=== PATIENT | male | born 1930 | race Caucasian/White ===

== ENCOUNTER → 2016-07-31 | Outpatient (CLI) | payer OTHER ==
[~2016-07-31] MED LIST: /WARF25TA; ACET500C; AMIT10TA2; ASPI81TA63; ATEN50TA2; DIOV160T5; DIOV80TA; FIBER CAPS; FISH1000; FLON0.05; GLUC500T3; LUTEIN; MAG-TAB; MULTIVIT; PERC5TAB8; PERC7.5T8; PRIL20CA; TYLE500T53; fiber caps; lutein; mvi
== END ==
LOC: M LAB 05:49
PROVIDERS: ATTEND Orthopaedic Surgery
DX: M16.11 Unilateral primary osteoarthritis, right hip (principal); Z51.81 Encounter for therapeutic drug level monitoring; Z79.899 Other long term (current) drug therapy

== ENCOUNTER → 2016-08-16 | Outpatient (CLI) | payer OTHER ==
--- NOTE | 2016-08-16 20:06 | REP ---
Whole body PET CT scan: Comparison is the chest CT dated 07/14/2016. On the comparison chest CT. There is a bilobed nodule in the superior segment of the right lower lobe. Whole body PET scanning is performed from the skull base to the upper thighs. Neck and supraclavicular areas: There are no hypermetabolic foci. There is artifactual uptake in the vocal cords. Chest: There are no hypermetabolic foci. The patient's known right lung nodule demonstrates no FDG avidity . The standard uptake value is 1.2. Abdomen, pelvis and upper thighs: There is nonspecific bowel uptake. There is a left hip arthroplasty with uptake adjacent to the arthroplasty, the standard uptake value measuring up to 8.6. This is of uncertain significance and may merely be postoperative. Impression: The patient's known right lung nodule is not FDG avid. There is nonspecific bowel uptake. There is uptake at the left hip arthroplasty, nonspecific, possibly postsurgical. The study is performed with 7.8 mCi of F 18 FDG. Signed by Yaniv Gonzalez MD 08/16/2016 07:56 P
== END ==
LOC: M PLARAD 14:28
PROVIDERS: ATTEND Internal Medicine Pulmonary Disease
DX: R91.1 Solitary pulmonary nodule (principal); Z96.9 Presence of functional implant, unspecified; R93.5 Abnormal findings on diagnostic imaging of other abdominal regions, including retroperitoneum
CPT/HCPCS: 78815; A9552

== ENCOUNTER → 2016-11-16 | Outpatient (CLI) | payer OTHER ==
[2016-11-16 14:47] LABS: ALBUMIN 3.2 GM/DL (3.2-5.2); ALBUMIN/GLOBULIN RATIO 0.91 (1.00-1.93); ALKALINE PHOSPHATASE 126 U/L (45-117); ALT/SGPT 25 U/L (12-78); ANION GAP 7 MEQ/L (8-16); AST/SGOT 16 U/L (15-37); BILIRUBIN,TOTAL 0.5 MG/DL (0.2-1.0); BLOOD UREA NITROGEN 14 MG/DL (7-18); CALCIUM LEVEL 9.8 MG/DL (8.8-10.2); CARBON DIOXIDE LEVEL 30 MEQ/L (21-32); CHLORIDE LEVEL 105 MEQ/L (98-107); CHOLESTEROL LEVEL 171 MG/DL (<200); GLOMERULAR FILTRATION RATE > 60.0 (>35); GLUCOSE, FASTING 86 MG/DL (83-110); POTASSIUM SERUM 5.1 MEQ/L (3.5-5.1); SODIUM LEVEL 142 MEQ/L (136-145); TOTAL PROTEIN 6.7 GM/DL (6.4-8.2); TRIGLYCERIDES LEVEL 102 MG/DL (<150)
== END ==
LOC: M SMT 07:57
PROVIDERS: ATTEND Family Medicine
DX: E78.00 Pure hypercholesterolemia, unspecified (principal)

== ENCOUNTER → 2016-12-26 | Outpatient (CLI) | payer OTHER ==
[~2016-12-26] MED LIST changes: +AMIT10TA PO; +ASPI81TA85 PO; +ATEN50TA2 PO; +OMEP40CA2 PO; +PARO20TA3 PO; +TRAM50TA2 PO; +VALS160T PO
[2016-12-26 11:10] LABS: BASO % 0.5 % (0.0-1.0); EOS # 0.3 K/mm3 (0.0-0.50); EOS % 4.4 % (0.0-3.0); LARGE UNSTAINED CELL # 0.2 K/mm3 (0.0-0.4); LARGE UNSTAINED CELL % 2.6 % (0.0-4.0); LYMPH # 1.4 K/mm3 (1.5-4.5); LYMPH % 22.3 % (24.0-44.0); MEAN CORPUSCULAR HEMOGLOBIN 31.5 pg (27.0-33.0); MEAN CORPUSCULAR HGB CONC 33.9 g/dl (32.0-36.5); MONO # 0.6 K/mm3 (0.0-0.8); MONO % 8.5 % (0.0-5.0); NEUTROPHILS % 61.7 % (36.0-66.0); PLATELET COUNT, AUTOMATED 220 k/mm3 (150-450); RED CELL DISTRIBUTION WIDTH 15.7 % (11.5-14.5); WHITE BLOOD COUNT 6.4 K/mm3 (4.0-10.0)
[2016-12-26 11:18] LABS: ALBUMIN/GLOBULIN RATIO 0.91 (1.00-1.93); ALKALINE PHOSPHATASE 122 U/L (45-117); ALT/SGPT 29 U/L (12-78); ANION GAP 7 MEQ/L (8-16); AST/SGOT 19 U/L (15-37); BILIRUBIN,TOTAL 0.4 MG/DL (0.2-1.0); BLOOD UREA NITROGEN 14 MG/DL (7-18); CALCIUM LEVEL 9.3 MG/DL (8.8-10.2); CARBON DIOXIDE LEVEL 30 MEQ/L (21-32); CHLORIDE LEVEL 107 MEQ/L (98-107); CHOLESTEROL LEVEL 161 MG/DL (<200); CREATININE FOR GFR 0.82 MG/DL (0.70-1.30); GLOMERULAR FILTRATION RATE > 60.0 (>35); GLUCOSE, FASTING 81 MG/DL (83-110); POTASSIUM SERUM 4.4 MEQ/L (3.5-5.1); SODIUM LEVEL 144 MEQ/L (136-145); TOTAL PROTEIN 6.3 GM/DL (6.4-8.2); TRIGLYCERIDES LEVEL 87 MG/DL (<150)
== END ==
LOC: M SMT 07:53
PROVIDERS: ATTEND Family Medicine
DX: I10 Essential (primary) hypertension (principal); E78.00 Pure hypercholesterolemia, unspecified

== ENCOUNTER → 2017-01-04 | Outpatient (REF) | payer OTHER | LOC: M LAB REF 12:09 | PROVIDERS: ATTEND Surgery | DX: D22.4 Melanocytic nevi of scalp and neck (principal) ==

== ENCOUNTER → 2017-01-17 | Outpatient (REF) | payer OTHER | LOC: M LAB REF 16:46 | PROVIDERS: ATTEND Physician Assistant | DX: J06.9 Acute upper respiratory infection, unspecified (principal) ==

== ENCOUNTER 2017-03-04 18:25 | Emergency (ER) | payer OTHER ==
[~2017-03-04] VITALS: Ht 182.9 cm; Wt 163.0 kg
[~2017-03-04 18:25] MED LIST changes: -AMIT10TA PO; -ASPI81TA85 PO; -ATEN50TA2 PO; -OMEP40CA2 PO; -PARO20TA3 PO; -TRAM50TA2 PO; -VALS160T PO
[2017-03-04] MEDS ORDERED: PARO20TA3 PO (18:41)
[2017-03-04] MEDS ORDERED: TRAM50TA2 PO (18:41)
[2017-03-04] MEDS ORDERED: OMEP40CA2 PO (18:41)
[2017-03-04] MEDS ORDERED: ATEN50TA2 PO (18:41)
[2017-03-04] MEDS ORDERED: AMIT10TA PO (18:41)
[2017-03-04] MEDS ORDERED: ASPI81TA85 PO (18:41)
[2017-03-04] MEDS ORDERED: VALS160T PO (18:41)
[2017-03-04 19:57] LABS: BASO % 0.3 % (0.0-1.0); EOS % 0.2 % (0.0-3.0); IMMATURE GRANULOCYTE % 0.4 % (0-0); LYMPH # 0.5 10^3/uL (1.5-4.5); LYMPH % 4.7 % (24.0-44.0); MEAN CORPUSCULAR HEMOGLOBIN 30.6 pg (27.0-33.0); MEAN CORPUSCULAR HGB CONC 33.7 g/dl (32.0-36.5); MEAN CORPUSCULAR VOLUME 90.6 fl (80.0-96.0); MONO # 0.7 10^3/uL (0.0-0.8); MONO % 6.6 % (0.0-5.0); NEUTROPHILS # 9.8 10^3/uL (1.8-7.7); NEUTROPHILS % 87.8 % (36.0-66.0); PLATELET COUNT, AUTOMATED 205 10^3/uL (150-450); WHITE BLOOD COUNT 11.2 10^3/uL (4.0-10.0)
[2017-03-04 20:25] LABS: ANION GAP 6 MEQ/L (8-16); BLOOD UREA NITROGEN 12 MG/DL (7-18); CALCIUM LEVEL 8.6 MG/DL (8.8-10.2); CARBON DIOXIDE LEVEL 29 MEQ/L (21-32); CHLORIDE LEVEL 102 MEQ/L (98-107); CREATININE FOR GFR 0.72 MG/DL (0.70-1.30); GLOMERULAR FILTRATION RATE > 60.0 (>35); GLUCOSE, FASTING 93 MG/DL (83-110); SODIUM LEVEL 137 MEQ/L (136-145)
[2017-03-04 21:23] VITALS: BP 120/104
--- NOTE | 2017-03-05 05:55 | ECGEPIP ---
Stationary ECG Study [facility] ED Test Date: 2017-03-04 Pat Name: CAROLINE CANTU Department: Room: - Gender: M [employer] Professor: af : 1930 Requested By: Randy Marmolejo Order Number: [id number] Reading MD: Randy Soto Measurements Intervals [place] Rate: 94 P: 32 TX: 199 QRS: -59 QRSD: 109 T: 49 QT: 343 QTc: 430 Interpretive Statements SINUS RHYTHM WITH FIRST DEGREE AV BNLOCK LEFT AXIS DEVIATION MODERATE INTRAVENTRICULAR CONDUCTION DELAY SIMILAR TO 07/05/13 Electronically Signed On 03-05-2017 5:55:08 EST by Randy Soto
--- NOTE | 2017-03-05 08:29 | REP ---
Clinical: Fever and chills. Technique: PA and lateral. Comparison: 05/16/2016. Findings: Mediastinum and cardiac silhouette are within normal limits and stable. Lung byrd demonstrate diffuse stable chronic changes. Subtle superimposed basilar atelectasis (left greater than right) cannot be excluded and should be correlated clinically. Impression: Acute on chronic changes including subtle left lower lobe atelectasis/early infiltrate suggested. Signed by Renzo Overton MD 03/05/2017 08:21 A
== END 2017-03-04 21:35 | disposition home or self-care (01) ==
LOC: M ED 18:25
DX: R68.83 Chills (without fever) (principal); I10 Essential (primary) hypertension
CPT/HCPCS: 71020; 80048; 81001; 85025; 87086; 93005; 99284; G0480

== ENCOUNTER → 2017-06-19 | Outpatient (REF) | payer OTHER, MEDICARE | LOC: M LAB REF 16:25 | DX: R19.7 Diarrhea, unspecified (principal) | CPT/HCPCS: 87507 ==

== ENCOUNTER → 2017-06-27 | Outpatient (CLI) | payer MEDICARE ==
[2017-06-27 13:33] LABS: BASO % 0.4 % (0.0-1.0); EOS # 0.2 10^3/uL (0.0-0.50); EOS % 2.3 % (0.0-3.0); HEMATOCRIT 46.1 % (42.0-52.0); IMMATURE GRANULOCYTE % 0.4 % (0-3.0); LYMPH # 1.7 10^3/uL (1.5-4.5); LYMPH % 16.1 % (24.0-44.0); MEAN CORPUSCULAR HEMOGLOBIN 30.5 pg (27.0-33.0); MEAN CORPUSCULAR HGB CONC 32.5 g/dl (32.0-36.5); MEAN CORPUSCULAR VOLUME 93.9 fl (80.0-96.0); MONO # 0.9 10^3/uL (0.0-0.8); MONO % 8.6 % (0.0-5.0); NEUTROPHILS # 7.6 10^3/uL (1.8-7.7); NEUTROPHILS % 72.2 % (36.0-66.0); PLATELET COUNT, AUTOMATED 292 10^3/uL (150-450); RED BLOOD COUNT 4.91 10^6/uL (4.30-6.10); RED CELL DISTRIBUTION WIDTH 15.8 % (11.5-14.5); WHITE BLOOD COUNT 10.5 10^3/uL (4.0-10.0)
[2017-06-27 14:17] LABS: VITAMIN B12 LEVEL 884 PG/ML
[2017-06-27 14:18] LABS: FOLATE > 24.0 NG/ML
[2017-06-27 14:22] LABS: ANION GAP 9 MEQ/L (8-16); BLOOD UREA NITROGEN 15 MG/DL (7-18); CALCIUM LEVEL 9.2 MG/DL (8.8-10.2); CARBON DIOXIDE LEVEL 30 MEQ/L (21-32); CHLORIDE LEVEL 104 MEQ/L (98-107); FERRITIN 68 NG/ML (26-388); GLOMERULAR FILTRATION RATE > 60.0 (>35); GLUCOSE, FASTING 75 MG/DL (70-100); IRON (FE) 76 UG/DL (65-175); PERCENT SATURATION 26.2 % (19.7-50.0); POTASSIUM SERUM 4.2 MEQ/L (3.5-5.1); SODIUM LEVEL 143 MEQ/L (136-145); TOTAL IRON BINDING CAPACITY 290 UG/DL (250-450)
== END ==
LOC: M SMT 10:22
DX: R53.83 Other fatigue (principal); I10 Essential (primary) hypertension
CPT/HCPCS: 82746

== ENCOUNTER → 2017-11-27 | Outpatient (CLI) | payer MEDICARE ==
[2017-11-27 12:20] LABS: BASO % 0.4 % (0.0-1.0); EOS # 0.2 10^3/uL (0.0-0.50); EOS % 1.7 % (0.0-3.0); HEMATOCRIT 43.2 % (42.0-52.0); HEMOGLOBIN 14.1 g/dl (13.5-17.5); IMMATURE GRANULOCYTE % 0.3 % (0-3.0); LYMPH # 1.6 10^3/uL (1.5-4.5); LYMPH % 17.6 % (24.0-44.0); MEAN CORPUSCULAR HGB CONC 32.6 g/dl (32.0-36.5); MEAN CORPUSCULAR VOLUME 91.9 fl (80.0-96.0); MONO # 0.9 10^3/uL (0.0-0.8); NEUTROPHILS # 6.3 10^3/uL (1.8-7.7); PLATELET COUNT, AUTOMATED 297 10^3/uL (150-450); RED CELL DISTRIBUTION WIDTH 15.2 % (11.5-14.5)
[2017-11-27 13:36] LABS: ALBUMIN 2.7 GM/DL (3.2-5.2); ALBUMIN/GLOBULIN RATIO 0.66 (1.00-1.93); ALKALINE PHOSPHATASE 121 U/L (45-117); ALT/SGPT 20 U/L (12-78); ANION GAP 8 MEQ/L (8-16); AST/SGOT 14 U/L (7-37); BILIRUBIN,TOTAL 0.6 MG/DL (0.2-1.0); BLOOD UREA NITROGEN 16 MG/DL (7-18); CALCIUM LEVEL 9.1 MG/DL (8.8-10.2); CARBON DIOXIDE LEVEL 30 MEQ/L (21-32); CHLORIDE LEVEL 103 MEQ/L (98-107); CHOLESTEROL LEVEL 134 MG/DL (<200); CHOLESTEROL RISK RATIO 3.045 (<5); CREATININE FOR GFR 0.77 MG/DL (0.70-1.30); FREE T4 0.93 NG/DL (0.76-1.46); GLOMERULAR FILTRATION RATE > 60.0 (>35); GLUCOSE, FASTING 81 MG/DL (70-100); HDL CHOLESTEROL 44 MG/DL (>40); NON-HDL-C 90 MG/DL; POTASSIUM SERUM 4.9 MEQ/L (3.5-5.1); SODIUM LEVEL 141 MEQ/L (136-145); TOTAL PROTEIN 6.8 GM/DL (6.4-8.2); TRIGLYCERIDES LEVEL 75 MG/DL (<150)
== END ==
LOC: M SMT 07:53
DX: I10 Essential (primary) hypertension (principal); E78.00 Pure hypercholesterolemia, unspecified; R06.02 Shortness of breath; R53.83 Other fatigue
CPT/HCPCS: 84443

== ENCOUNTER → 2018-05-28 | Outpatient (CLI) | payer MEDICARE ==
[~2018-05-28] MED LIST changes: +AMIT10TA PO; +ASPI81TA85 PO; +ATEN50TA2 PO; +OMEP40CA2 PO; +PARO20TA3 PO; +TRAM50TA2 PO; +VALS160T PO
--- NOTE | 2018-05-29 08:56 | REP ---
PET/CT: History: Solitary pulmonary nodule. Comparisons: Comparison PET/CT study August 16, 2016. Comparison CT study of the chest May 15, 2017. Enlarging spiculated nodule right lower lobe. TECHNIQUE: 65 minutes following the intravenous injection of a 7.9 mCi dose of F-18 FDG, three-dimensional PET scintigraphy is acquired from the skull base to the proximal thighs. Triplanar noncontrast CT scanning is acquired through the same anatomic range for attenuation correction, and image registration with scan parameters optimized to minimize radiation exposure to the patient. PET scintigraphy and CT datasets were fused and displayed on a workstation with multiplanar and projection display capability. PET/CT Findings: The right lower lobe nodule has enlarged further and is hypermetabolic. Maximum standard uptake value is 7.2. It measures [address] images. In the right lower lobe posterior and medial lung gutter, there is an area of increased density in a linear morphologic pattern consistent with atelectasis. It is more prominent than on the 2017 study but unchanged from May 15, 2017. This is mildly hypermetabolic with maximum standard uptake value 2.99. This is most compatible with chronic atelectasis. No other abnormal pulmonary parenchymal hypermetabolic uptake is seen. There is however hypermetabolic right hilar and precarinal lymphadenopathy. There is a normal-sized precarinal lymph node demonstrating maximum standard uptake value of 2.7. In the superior aspect of the right hilus there is a enlarged hypermetabolic node with maximum standard uptake value 7.6. Just inferior and lateral there is a similar sized node in the right hilus with maximum standard uptake value 8.9. Inferior to this there are two smaller hilar nodes, the more avid of which has maximum standard uptake value of 4.6. No other abnormal hypermetabolic uptake is seen in the thorax. Head and neck soft tissues are unremarkable. There is a mucous retention cyst in the right maxillary sinus. In the abdomen and pelvis, there is no abnormal hepatic or adrenal hypermetabolic uptake. There is however a mass in the splenic flexure of the colon showing mural thickening and hypermetabolic uptake, highly suspicious for a primary colon malignancy. Maximum standard uptake value here is much higher than background gastrointestinal mucosal uptake, measuring 13.6. Impression: The right lower lobe nodule has increased in size and become hypermetabolic with metastatic hypermetabolic right hilar and early precarinal mediastinal lymphadenopathy. Also noted is a splenic flexure colon mass which is quite hypermetabolic as well highly suspicious for a primary colon malignancy. Electronically Signed by Triston Garcia MD 05/29/2018 06:46 P
== END ==
LOC: M PLARAD 12:16
PROVIDERS: ATTEND Internal Medicine Pulmonary Disease
DX: R91.1 Solitary pulmonary nodule (principal)
CPT/HCPCS: 78815; A9552

== ENCOUNTER → 2018-06-03 | Outpatient (REF) | payer MEDICARE ==
[2018-06-03 13:56] LABS: INR 1.07
== END ==
LOC: M LAB REF 13:23
PROVIDERS: ATTEND Internal Medicine Pulmonary Disease
DX: R91.1 Solitary pulmonary nodule (principal)

== ENCOUNTER → 2018-06-18 | Outpatient (CLI) | payer MEDICARE ==
[~2018-06-18] MED LIST changes: +LIDOCAINE 1% MDV 20ML VIAL As Ordered ONE
--- NOTE | 2018-06-18 14:03 | REP ---
Chest x-ray: PA view. History: Status post needle biopsy. Postprocedure chest x-ray. Rule out pneumothorax. Right lung nodule biopsy. Comparison PET-CT study May 28 1018. Findings: An ill-defined nodular opacities seen in the right midlung zone at the biopsy site. There is no evidence of pneumothorax or hydrothorax. Interstitial fibrosis is seen in both lung bases. The aorta is tortuous and calcific. Impression: No evidence of pneumothorax or hydrothorax. Electronically Signed by Triston Garcia MD 06/18/2018 01:54 P
--- NOTE | 2018-06-18 19:33 | REP ---
CT-GUIDED RIGHT LOWER LOBE LUNG BIOPSY The procedure was performed under the direct supervision of Dr. Garcia. Patient has a history of a right lower lobe lung nodule that has increased in size and the, hypermetabolic seen on a previous PET scan dated 05/28/2018. The risks and benefits of the procedure were explained to the patient and informed consent was obtained. The right lower lobe lung nodule was localized using CT guidance. The skin was prepped and draped in a sterile fashion. 1% lidocaine was used as a local anesthetic. Using CT guidance a 19/20 gauge coaxial needle biopsy system was inserted and advanced into the nodule. Four core biopsy samples were obtained and sent to lab. The patient tolerated the procedure well and there were no immediate complications. After the appropriate amount of monitored convalescence the patient was discharged from the department. Reviewed by LC Wise 06/18/2018 04:32 P Electronically Signed by Triston Garcia MD 06/18/2018 07:24 P
== END ==
LOC: M RADPRO 11:46
PROVIDERS: ATTEND Internal Medicine Pulmonary Disease
DX: C34.31 Malignant neoplasm of lower lobe, right bronchus or lung (principal)

== ENCOUNTER → 2018-07-20 | Outpatient (CLI) | payer MEDICARE ==
[~2018-07-20] MED LIST changes: +ADVA230A INH; +AMOX500C PO; +CENTCHW4 PO; +D32000TA PO; +FISH120016 PO; +FLON1SPR NARES; +ICAPCAP PO; -LIDOCAINE 1% MDV 20ML VIAL As Ordered ONE; +SYST0.6S OP; +VENTAER INH
[2018-07-20 09:28] LABS: BASO % 0.4 % (0.0-1.0); EOS # 0.2 10^3/uL (0.0-0.50); EOS % 2.1 % (0.0-3.0); HEMATOCRIT 39.9 % (42.0-52.0); HEMOGLOBIN 12.7 g/dl (13.5-17.5); LYMPH # 1.8 10^3/uL (1.5-4.5); LYMPH % 17.4 % (24.0-44.0); MEAN CORPUSCULAR HEMOGLOBIN 28.7 pg (27.0-33.0); MEAN CORPUSCULAR HGB CONC 31.8 g/dl (32.0-36.5); MEAN CORPUSCULAR VOLUME 90.3 fl (80.0-96.0); MONO # 0.9 10^3/uL (0.0-0.8); MONO % 8.7 % (0.0-5.0); NEUTROPHILS # 7.3 10^3/uL (1.8-7.7); NEUTROPHILS % 71.2 % (36.0-66.0); PLATELET COUNT, AUTOMATED 330 10^3/uL (150-450); RED BLOOD COUNT 4.42 10^6/uL (4.30-6.10); WHITE BLOOD COUNT 10.2 10^3/uL (4.0-10.0)
[2018-07-20 09:55] LABS: ALBUMIN 2.6 GM/DL (3.2-5.2); ALT/SGPT 16 U/L (12-78); BILIRUBIN,TOTAL 0.4 MG/DL (0.2-1.0); BLOOD UREA NITROGEN 18 MG/DL (7-18); CALCIUM LEVEL 8.9 MG/DL (8.8-10.2); CARBON DIOXIDE LEVEL 31 MEQ/L (21-32); CHLORIDE LEVEL 103 MEQ/L (98-107); CREATININE FOR GFR 1.08 MG/DL (0.70-1.30); GLOMERULAR FILTRATION RATE > 60.0 (>35); GLUCOSE, FASTING 82 MG/DL (70-100); POTASSIUM SERUM 4.4 MEQ/L (3.5-5.1); SODIUM LEVEL 140 MEQ/L (136-145); TOTAL PROTEIN 6.5 GM/DL (6.4-8.2)
== END ==
LOC: M LAB 08:05
PROVIDERS: ATTEND Internal Medicine Medical Oncology
DX: Z01.818 Encounter for other preprocedural examination (principal); C34.90 Malignant neoplasm of unspecified part of unspecified bronchus or lung

== ENCOUNTER → 2018-07-24 | Outpatient (CLI) | payer MEDICARE ==
[~2018-07-24] MED LIST changes: -/WARF25TA; +COUM1TAB18; +PROHANCE 279.3MG/ML 15ML VIAL (A9576) As Ordered ONE
--- NOTE | 2018-07-24 15:06 | REP ---
MR BRAIN WITHOUT AND WITH CONTRAST: HISTORY: Lung carcinoma. CONTRAST: ProHance 14.8 mL. An area of increased signal intensity on T2-weighted images is present in the right internal capsule. This represents an old lacunar infarction. Areas of increased signal intensity on T2-weighted images are present in the periventricular and subcortical white matter and tonny. This represents small vessel ischemic disease. There is no intraparenchymal hemorrhage, acute infarct, mass, or midline shift. There is no abnormal enhancement. The ventricular system and cortical sulci as well as subarachnoid space in the posterior fossa are dilated consistent with moderate volume loss. There is no extracerebral collection. Mucosal thickening is present in the ethmoid, sphenoid, right maxillary, and frontal sinuses. IMPRESSION: 1. 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 2. Small vessel ischemic disease. 3. Moderate volume loss. Electronically Signed by Pancho Nunn MD 07/24/2018 03:08 P
== END ==
LOC: M RAD 12:49
PROVIDERS: ATTEND Internal Medicine Medical Oncology
DX: C34.90 Malignant neoplasm of unspecified part of unspecified bronchus or lung (principal); I67.82 Cerebral ischemia; Z86.73 Personal history of transient ischemic attack (TIA), and cerebral infarction without residual deficits
CPT/HCPCS: 70553; A9576

== ENCOUNTER 2018-07-29 10:43 | Day surgery (SDC) | payer MEDICARE ==
[~2018-07-29] VITALS: Ht 182.9 cm; Wt 70.8 kg
[~2018-07-29 10:43] MED LIST changes: +NS 1,000 ML IV SCH; -PROHANCE 279.3MG/ML 15ML VIAL (A9576) As Ordered ONE
[2018-07-29] MEDS ORDERED: ALBUTEROL SULFATE 2.5 MG/0.5 ML INH NEB SOLN As Ordered ONE (11:52)
[2018-07-29] MEDS ORDERED: PROPOFOL 200 MG/20 ML VIAL As Ordered ONE (11:57)
[2018-07-29] MEDS ORDERED: LIDOCAINE 2% INJ 100 MG/5 ML SDV (FOR ANES.) As Ordered ONE (12:06)
[2018-07-29] MEDS ORDERED: ALBUTEROL SULFATE 2.5 MG/0.5 ML INH NEB SOLN INH ONE (12:15)
--- NOTE | 2018-07-29 13:51 | ROOR ---
Patient Name: Devan Mcknight Procedure Date: 07/29/2018 1:21 PM Date of : 1930 Age: 87 Room: [facility] Gender: Male Note Status: Finalized Procedure: Colonoscopy to 60 cms + Biopsies + carbon spot marking Indications: Abnormal PET scan of the GI tract Providers: Tal Gallardo MD Referring MD: Beatrice BILLY DO, Lawrence Kramer, MD Requesting Provider: Beatrice BILLY DO, Lawrence Kramer, MD Medicines: Monitored Anesthesia Care Complications: No immediate complications. Procedure: Pre-Anesthesia Assessment: - The heart rate, respiratory rate, oxygen saturations, blood pressure, adequacy of pulmonary ventilation, and response to care were monitored throughout the procedure. The Colonoscope was introduced through the anus with the intention of advancing to the cecum. The scope was advanced to the splenic flexure before the procedure was aborted. Medications were given. The colonoscopy was performed without difficulty. The patient tolerated the procedure well. The quality of the bowel preparation was excellent. Findings: The perianal and digital rectal examinations were normal. Non-bleeding internal hemorrhoids were found during retroflexion. The hemorrhoids were small and Grade I (internal hemorrhoids that do not prolapse). Scattered small-mouthed diverticula were found in the recto-sigmoid colon, sigmoid colon and descending colon. An ulcerated partially obstructing large mass was found at the splenic flexure. The mass was circumferential. No bleeding was present. This was biopsied with a cold forceps for histology. Area was successfully injected with Spot (carbon black) for tattooing. The exam was otherwise without abnormality. Impression: - Non-bleeding internal hemorrhoids. - Diverticulosis in the recto-sigmoid colon, in the sigmoid colon and in the descending colon. - Rule out malignancy, partially obstructing tumor at the splenic flexure. Biopsied. Injected. - Malignant-appearing tumor in the colon. Biopsied. Tattooed. - The examination was otherwise normal. Recommendation: - Patient has a contact number available for emergencies. The signs and symptoms of potential delayed complications were discussed with the patient. Return to normal activities tomorrow. Written discharge instructions were provided to the patient. - Discharge patient to home. - Continue present medications. - Await pathology results. - Telephone GI clinic for pathology results in 1 week. - Check Portal Online for Path Results.([email or web address]) - Refer to a surgeon at appointment to be scheduled. - The findings and recommendations were discussed with the patient's family. Tal Gallardo MD Tal Gallardo MD 07/29/2018 1:50:56 PM Electronically signed by aTl Gallardo MD Number of Addenda: 0 Note Initiated On: 07/29/2018 1:21 PM Estimated Blood Loss: Estimated blood loss: none.
[2018-07-29 14:15] VITALS: BP 100/59
[2018-08-06] MEDS ORDERED: VALS1TAB67 PO (13:18)
[2018-08-06] MEDS ORDERED: EQL1CAP9 PO (13:18)
== END 2018-07-29 14:25 | disposition home or self-care (01) ==
LOC: M OPP 10:43
PROVIDERS: ATTEND Internal Medicine Gastroenterology
DX: C18.5 Malignant neoplasm of splenic flexure (principal); K64.0 First degree hemorrhoids; K57.30 Diverticulosis of large intestine without perforation or abscess without bleeding; R93.3 Abnormal findings on diagnostic imaging of other parts of digestive tract

== ENCOUNTER → 2018-08-09 | Outpatient (CLI) | payer MEDICARE ==
[~2018-08-09] MED LIST changes: +EQL1CAP9 PO; +METR-265; +NEOM500T; -NS 1,000 ML IV SCH; +VALS1TAB67 PO
[2018-08-09 10:37] LABS: BASO % 0.4 % (0.0-1.0); EOS # 0.1 10^3/uL (0.0-0.50); EOS % 1.1 % (0.0-3.0); HEMATOCRIT 36.1 % (42.0-52.0); HEMOGLOBIN 11.6 g/dl (13.5-17.5); LYMPH # 1.4 10^3/uL (1.5-4.5); LYMPH % 13.5 % (24.0-44.0); MEAN CORPUSCULAR HEMOGLOBIN 28.9 pg (27.0-33.0); MEAN CORPUSCULAR HGB CONC 32.1 g/dl (32.0-36.5); MEAN CORPUSCULAR VOLUME 89.8 fl (80.0-96.0); MONO # 0.8 10^3/uL (0.0-0.8); MONO % 7.8 % (0.0-5.0); NEUTROPHILS # 8.1 10^3/uL (1.8-7.7); NEUTROPHILS % 76.8 % (36.0-66.0); PLATELET COUNT, AUTOMATED 344 10^3/uL (150-450); RED BLOOD COUNT 4.02 10^6/uL (4.30-6.10); WHITE BLOOD COUNT 10.6 10^3/uL (4.0-10.0)
[2018-08-09 10:51] LABS: INR 1.09; PROTHROMBIN TIME 14.2 SECONDS (12.1-14.4)
[2018-08-09 10:52] LABS: PARTIAL THROMBOPLASTIN TIME 33.2 SECONDS (25.4-37.6)
[2018-08-09 14:25] LABS: ALBUMIN 2.5 GM/DL (3.2-5.2); ALT/SGPT 19 U/L (12-78); BILIRUBIN,TOTAL 0.4 MG/DL (0.2-1.0); BLOOD UREA NITROGEN 17 MG/DL (7-18); CALCIUM LEVEL 8.8 MG/DL (8.8-10.2); CARBON DIOXIDE LEVEL 27 MEQ/L (21-32); CHLORIDE LEVEL 106 MEQ/L (98-107); CREATININE FOR GFR 0.94 MG/DL (0.70-1.30); GLOMERULAR FILTRATION RATE > 60.0 (>35); GLUCOSE, FASTING 104 MG/DL (70-100); POTASSIUM SERUM 4.3 MEQ/L (3.5-5.1); SODIUM LEVEL 140 MEQ/L (136-145); TOTAL PROTEIN 6.2 GM/DL (6.4-8.2)
== END ==
LOC: M LAB 10:05
PROVIDERS: ATTEND Physician Assistant
DX: Z01.818 Encounter for other preprocedural examination (principal)

== ENCOUNTER 2018-08-12 05:51 | Inpatient (IN) | payer MEDICARE ==
[~2018-08-12] VITALS: Ht 182.9 cm; Wt 73.9 kg
[2018-08-12] VITALS (8 sets, daily range): BP systolic 97–132; BP diastolic 53–80
--- NOTE | 2018-08-12 05:37 | HPE ---
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 HISTORY OF PRESENT ILLNESS: The patient is a pleasant 87-year-old man who had recently been diagnosed with Stage III lung cancer. He had undergone workup of a lung nodule and was found to have evidence of positive mediastinal nodes by PET scan. His PET scan also identified an area of increased uptake in the splenic flexure. As a result of this on July 29 he underwent a colonoscopy and identified a large mass in the splenic flexure. Biopsies were obtained that confirmed well to moderately differentiated adenocarcinoma. The patient was referred to me for evaluation and possible treatment. The patient and I have discussed the finding. The decisions regarding his lung cancer treatment have not been finalized. I advised that treatment of the colon cancer would be appropriate despite his lung cancer to prevent bleeding, perforation, and obstruction. The patient was counseled regarding the risks and possible benefits of surgery. He had an opportunity to ask questions and is now being admitted to undergo a robotic-assisted laparoscopic, left partial colectomy for his splenic flexure mass. ALLERGIES: The patient reports an allergy to MORPHINE which leads to irritability and agitation. MEDICATIONS: His current medications include: - oxygen 4 liters by nasal cannula at night - Zyrtec 10 mg by mouth nightly - vitamin D3 2000 units by mouth every day - tramadol 50 mg one every 6 hours as needed for pain - valsartan/hydrochlorothiazide 160/12.5 mg, 1/2 tablet by mouth every day - amitriptyline 10 mg every morning and evening - Flonase 50 mcg per spray 2 sprays in each nostril daily as needed - I-CAPS - multivitamin one by mouth daily - aspirin 81 mg by mouth daily - fish oil 1200 mg, 2 capsules by mouth twice daily - Advair 115 - 21 mcg 2 puffs twice a day - paroxetine 20 mg by mouth daily - omeprazole 20 mg by mouth daily twice daily - atenolol 50 mg 1 tablet daily PAST MEDICAL HISTORY: Significant for: 1. Gastroesophageal reflux disease, 2. Hyperlipidemia. 3. Hypertension. 4. Osteoarthritis. 5. History of some anxiety. 6. Chronic obstructive lung disease with Stage III lung cancer. PAST SURGICAL HISTORY: 1. The patient underwent a left hip replacement in 2009. 2. He had a left carpal tunnel release and 2007. 3. He has had cataract removal on both sides. 4. He underwent a transurethral resection of the prostate in 2001 for benign prostatic hyperplasia. He had a circumcision later in life. 5. He underwent a right inguinal hernia repair in 1998. 6. He had a right knee replacement in 2001. 7. Prior left hip replacement in 1987. 8. He had a right hip replacement in 2016. 9. He has had a wrist fusion in 1980. FAMILY HISTORY: He has a sibling with a history of heart disease and stroke. Father succumbed to pneumonia and his mother had breast cancer. SOCIAL HISTORY: The patient is for the last 13 years. He is a retired electricians top helper. He is a former smoker and does consume some wine daily. REVIEW OF SYSTEMS: He denies any chest pain or palpitations. He denies any cough or sputum production. He does use oxygen. He is not having any abdominal pain. He has had some degree of constipation. He has not noticed any rectal bleeding. The patient denies any dysuria or hematuria. The patient has several total joint replacements and has some discomfort associated with osteoarthritis. He has some anxiety but denies any depression. He has had no history of deep venous thrombosis (DVT) or pulmonary embolus. There is no history of diabetes or thyroid problems. PHYSICAL EXAMINATION: GENERAL: Physical exam reveals a pleasant elderly man in no apparent discomfort. VITAL SIGNS: Most recent vital signs show a height of 71 inches with a weight of 165 pounds giving him a body mass index (BMI) of approximately 23. He is alert and oriented. SKIN: Warm and dry. HEENT: Sclerae are anicteric. Mucous membranes are moist. NECK: Neck is supple and he has no cervical bruit. HEART: Exam shows a regular rate and rhythm. LUNGS: The lungs show mildly distant breath sounds but the sounds are clear bilaterally. ABDOMEN: Abdomen is thin and flat. He has no abdominal scars. He does have active bowel sounds. Palpation reveals no mass or tenderness and there is no evident hernia. EXTREMITIES: Extremities show changes consistent with his prior joint replacement. He has palpable radial and pedal pulses bilaterally. LABORATORY DATA: The patient had lab work on August 09 which showed a white count of 11, hemoglobin of 12, hematocrit of 36 and platelet count of 344,000. Differential counts showed 77% neutrophils, 14% lymphocytes and 8% monocytes. He had a PT/INR and PTT that were normal on the . His chemistry profile showed a sodium of 140, potassium 4.3, chloride 106 and CO2 of 27, BUN of 17, creatinine 0.9 and glucose of 104. Liver function tests were normal. Total protein was 6.2 and albumin was 2.5. These are both slightly below normal. He did have a carcinoembryonic antigen level on the July 20 that was markedly elevated at 96.3. IMAGING: The patient had an MRI of the brain on July 24 that showed no evidence of metastatic disease. His PET CT on May 28 showed a right lower lobe nodule that was hypermetabolic and enlarged compared to prior testing. There were hypermetabolic right hilar and precarinal nodes identified. There was evidence of uptake in the splenic flexure with mural thickening suggestive of a colon malignancy. IMPRESSION: 1. Splenic flexure carcinoma. 2. Stage III lung carcinoma. 3. Chronic obstructive pulmonary disease. 4. Hypertension. 5. Hyperlipidemia. 6. Anxiety. 7. Gastroesophageal reflux disease. 8. Osteoarthritis. 9. Mild hyperproteinemia PLAN: The patient is being admitted on August 12 to undergo a robotically assisted laparoscopic resection of the splenic flexure tumor. He is to perform a mechanical and antibiotic bowel preparation on the August 11. This is to include SUPREP, neomycin, and Flagyl. He will receive preoperative cefotetan before the surgery. He will be started on Entereg preoperatively. The patient was counseled regarding the nature of the surgery. He was counseled that there is a small chance that we would need to make a larger incision and could not complete the procedure laparoscopically. The risks of the procedure include but are not limited to bleeding, infection, scarring, adverse drug reaction, need for further surgery, injury of internal organ, anastomotic leak, and hernia. The patient had an opportunity to ask questions. He desires to proceed with the surgery as I have outlined it.
[~2018-08-12 05:51] MED LIST changes: -METR-265; -NEOM500T
[2018-08-12] MEDS ORDERED: ALVIMOPAN 12 MG CAPSULE (ENTEREG) PO ONE (06:45)
[2018-08-12] MEDS ORDERED: cefoTEtan DISODIUM 2 GM in D5W MINI-BAG PLUS 50 ML IV ONE (07:00)
[2018-08-12] MEDS ORDERED: LR 1,000 ML IV SCH ×3 (07:00→16:00)
[2018-08-12] MEDS ORDERED: BUPIVACAINE HCL 0.25% 30 ML VIAL As Ordered ONE (07:05)
[2018-08-12] MEDS ORDERED: ROCURONIUM BROMIDE 50 MG/5 ML VIAL As Ordered ONE ×2 (07:12→08:44)
[2018-08-12] MEDS ORDERED: PROPOFOL 200 MG/20 ML VIAL As Ordered ONE (07:12)
[2018-08-12] MEDS ORDERED: LIDOCAINE 2% INJ 100 MG/5 ML SDV (FOR ANES.) As Ordered ONE (07:12)
[2018-08-12] MEDS ORDERED: fentaNYL 100 MCG/2 ML INJECTION (J3010) As Ordered ONE ×2 (07:12→13:33)
[2018-08-12] MEDS ORDERED: MIDAZOLAM INJ 2 MG/2 ML VIAL (J2250) As Ordered ONE (07:13)
[2018-08-12] MEDS ORDERED: PHENYLephrine HCL 500 MCG/5 ML (100MCG/ML) SYRINGE (J2370) As Ordered ONE (07:50)
[2018-08-12] MEDS ORDERED: ePHEDrine SULFATE 25 MG/5 ML(5MG/ML) SYRINGE As Ordered ONE ×2 (07:52→08:17)
[2018-08-12] MEDS ORDERED: NEOM500T (07:55)
[2018-08-12] MEDS ORDERED: VASOPRESSIN INJ 20 UNITS/ML VIAL As Ordered ONE (08:01)
[2018-08-12] MEDS ORDERED: GLYCOPYRROLATE INJ 0.2 MG/ML 2 ML VIAL As Ordered ONE (08:18)
[2018-08-12] MEDS ORDERED: dexameTHASONE 4 MG/ML 1ML VIAL (J1100) As Ordered ONE (08:24)
[2018-08-12] MEDS ORDERED: METR-265 (08:31)
[2018-08-12] MEDS ORDERED: HYDROmorphone HCL 2 MG/ML 1ML VIAL (J1170) As Ordered ONE (09:21)
[2018-08-12] MEDS ORDERED: NEOSTIGMINE 10 MG/10 ML VIAL (J2710) As Ordered ONE (10:06)
[2018-08-12] MEDS ORDERED: ONDANSETRON 4MG/2ML VIAL (J2405) As Ordered ONE (10:06)
[2018-08-12] MEDS ORDERED: ACETAMINOPHEN TAB 650MG DOSE (2X325MG) PO PRN (12:15)
[2018-08-12] MEDS ORDERED: KETOROLAC 30 MG/ML VIAL (J1885) IV PRN (12:15)
[2018-08-12] MEDS ORDERED: ONDANSETRON 4MG/2ML VIAL (J2405) IV PRN ×3 (12:15→16:00)
[2018-08-12] MEDS ORDERED: HYDROMORPHONE HCL 0.5 MG/ 0.5 ML SYRINGE (J1170 PER 1) IV PRN ×2 (12:30→16:00)
[2018-08-12] MEDS: fentaNYL 100 MCG/2 ML INJECTION (J3010) IV PRN ×2 (13:35→13:40)
[2018-08-12] MEDS: NORCO, ANEXSIA 5/325MG TABLET (HYDROcodone/ACETAMINOPHEN) PO PRN (13:44)
[2018-08-12] MEDS: LR 1,000 ML IV SCH ×2 (14:30→23:41)
[2018-08-12] MEDS: AMITRIPTYLINE 10 MG TAB PO SCH ×2 (15:04→21:23)
[2018-08-12] MEDS ORDERED: fentaNYL 100 MCG/2 ML INJECTION (J3010) IV PRN (16:00)
[2018-08-12] MEDS: ADVAIR HFA 230/21MCG INHALER INH SCH (19:39)
[2018-08-12] MEDS: ENOXAPARIN 40 MG/0.4 ML SYRINGE (J1650) SC SCH (21:23)
[2018-08-13 02:00] VITALS: BP 103/59
[2018-08-13] MEDS: NORCO, ANEXSIA 5/325MG TABLET (HYDROcodone/ACETAMINOPHEN) PO PRN (05:52)
[2018-08-13 06:00] VITALS: BP 107/58
[2018-08-13] MEDS: ADVAIR HFA 230/21MCG INHALER INH SCH ×2 (07:54→21:00)
[2018-08-13] MEDS ORDERED: NORCO, ANEXSIA 5/325MG TABLET (HYDROcodone/ACETAMINOPHEN) PO PRN (08:00)
[2018-08-13 08:08] LABS: BASO # 0.1 10^3/uL (0.0-0.2); BASO % 0.4 % (0.0-1.0); EOS # 0.1 10^3/uL (0.0-0.50); EOS % 0.9 % (0.0-3.0); HEMATOCRIT 34.9 % (42.0-52.0); HEMOGLOBIN 11.2 g/dl (13.5-17.5); LYMPH # 1.2 10^3/uL (1.5-4.5); LYMPH % 9.7 % (24.0-44.0); MEAN CORPUSCULAR HEMOGLOBIN 28.9 pg (27.0-33.0); MEAN CORPUSCULAR HGB CONC 32.1 g/dl (32.0-36.5); MEAN CORPUSCULAR VOLUME 90.2 fl (80.0-96.0); MONO # 0.6 10^3/uL (0.0-0.8); MONO % 4.5 % (0.0-5.0); NEUTROPHILS # 10.5 10^3/uL (1.8-7.7); NEUTROPHILS % 84.3 % (36.0-66.0); PLATELET COUNT, AUTOMATED 292 10^3/uL (150-450); RED BLOOD COUNT 3.87 10^6/uL (4.30-6.10); WHITE BLOOD COUNT 12.4 10^3/uL (4.0-10.0)
[2018-08-13 08:27] LABS: BLOOD UREA NITROGEN 18 MG/DL (7-18); CALCIUM LEVEL 8.3 MG/DL (8.8-10.2); CARBON DIOXIDE LEVEL 28 MEQ/L (21-32); CHLORIDE LEVEL 105 MEQ/L (98-107); CREATININE FOR GFR 0.92 MG/DL (0.70-1.30); GLOMERULAR FILTRATION RATE > 60.0 (>35); GLUCOSE, FASTING 87 MG/DL (70-100); POTASSIUM SERUM 3.7 MEQ/L (3.5-5.1); SODIUM LEVEL 138 MEQ/L (136-145)
[2018-08-13] MEDS: LR 1,000 ML IV SCH (08:28)
[2018-08-13] MEDS: ATENOLOL 50 MG TAB PO SCH (08:29)
[2018-08-13] MEDS: AMITRIPTYLINE 10 MG TAB PO SCH ×2 (08:29→20:22)
--- NOTE | 2018-08-13 09:26 | RO ---
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 PROCEDURE PERFORMED: A robotic-assisted laparoscopic resection of the distal transverse and proximal descending colon for a large cancer with primary anastomosis. SURGEON: Dr. Snyder MANAGER HOME: Dr. Perez SECOND PRINCIPAL JAVA SOFTWARE ENGINEER: Doris Blackman NP ANESTHESIA: General. INDICATIONS FOR PROCEDURE: Patient is a pleasant 87-year-old man who was recently undergoing workup for lung cancer. A PET scan showed several nodes in the mediastinum consistent with metastatic deposits from the lung cancer and decisions regarding treatment are pending. The PET scan also showed a large area of uptake in the splenic flexure with the associated CT showing wall thickening highly suspicious for carcinoma. A colonoscopy confirmed a moderately to well-differentiated adenocarcinoma and he is now for a robotic-assisted laparoscopic resection of the splenic flexure. OPERATIVE PROCEDURE: The patient was brought to the operating room and placed on the table in a supine position. He was placed under general endotracheal anesthesia. Thromboembolism deterrents (TEDs) and sequentials were utilized. A Shelby catheter was inserted. The patient's arms were tucked and his pressure points padded. The patient's abdomen was prepped and draped in a sterile fashion. 0.25% Marcaine was infiltrated at the trocar sites as needed. A short high right upper quadrant incision was made and a Veress needle was inserted. After a positive hanging drop test the abdomen was insufflated with carbon dioxide gas. An 8 mm robotic trocar was then inserted without difficulty. The laparoscopic was placed and initial exam revealed a normal-appearing liver. Visualized loops of the small and large bowel appeared normal. There appeared to be a few adhesions of the sigmoid colon to the left lower quadrant abdominopelvic sidewall but no acute inflammation was seen. A second 8 mm port was placed approximately 10 cm further down the right side of the abdomen. A third port was placed 10 cm beyond this and a 12 mm port was placed almost in the low midline. The robot was docked with the camera port at arm #3. A small grasping retractor was placed through arm #1. The forced bipolar in arm #2 and cauterizing scissors through port #4. I then moved to the robot console and proceeded robotically. Initial inspection did not identify the tumor. The descending colon was identified. The patient was rolled slightly to the right and placed in a slight reverse Trendelenburg position. The lateral attachments of the descending colon were divided mobilizing the descending colon medially through the avascular plane. This was carried up toward the splenic flexure. There was abundant fatty tissue, particularly in the left upper quadrant. I then turned my attention to identifying the transverse colon. The greater omentum was grasped and elevated and then dissected off of the mid transverse colon working toward the splenic flexure. Hemostasis was ensured with the cautery as needed. Dissection continued working toward the splenic flexure. As the flexure was approached, there was a firm dimpled area identified in the anterior aspect of the distal transverse colon. Distal to this was a dark staining of the wall of the bowel consistent with use of a spot marker to identify this. Dissection then was focused from both sides both coming up from the descending colon and coming across the transverse to elevate the omentum away from the colon and free the superior aspect of the colon. The colon appeared to be nicely from the spleen and there were no direct splenocolic attachments. Once the splenic flexure had been mobilized, I elevated the mid transverse colon and identified a point for transection taking at least 5 cm of colon proximal to the tumor mass. An opening was created through the transverse colon mesentery and the bowel was stapled with the robotic 45 mm stapler with a green load. Using the vessel sealer, the mesentery was dissected working down toward the base of the mesentery. I then moved to the descending colon and selected a point for transection. Again, the mesentery was opened and the bowel was stapled with a 45 mm green load. Then, beginning with the transverse colon dissection I worked dividing the mesentery toward its base working along the transverse colon toward the splenic flexure. In order to improve the view of this area, I rearranged the robotic instruments to put the camera into arm #2 for a slightly different view and placed the additional grasper down into arm #4. Dissection proceeded freeing the colon by dividing the mesentery all the way around the splenic flexure until the specimen was completely freed. The specimen was placed in the left lower quadrant. The proximal and distal ends of the colon were identified and it was clear that there was adequate mobility for an anastomosis. The robot was then undocked from the ports. Standard handheld graspers were inserted through three of the ports to grasp the specimen and the proximal and distal ends of the colon. I then made a 6-7 cm midline incision just below the umbilicus. A small Mobius retractor was placed. The specimen was delivered through the opening in the retractor. This was an approximately 20 cm segment of bowel with a probably 7-8 cm long mass palpable in the splenic flexure. There was some dimpling of the bowel wall over one area of the tumor. I did not feel any lymph nodes in the mesentery. This was sent for permanent pathology. The proximal and distal ends of the colon were then delivered through the wound. A stapled anastomosis was performed with a linear cutter 55 stapler and a TX60G stapler. Several reinforcing sutures of #3-0 Vicryl were placed. The end of the bowel was then irrigated and reduced into the abdomen. The retractor was removed. The surgical team changed gown and gloves. Dr. Perez's expertise had been required for assistance with the final anastomosis in particular. At this point, the peritoneum of the low midline incision was closed with a running suture of chromic. The fascia was closed with interrupted simple sutures of #1 Vicryl. The abdomen was then reinflated. The laparoscope was inserted. The anastomosis was well seen and there was no evidence of any leakage and no bleeding. Some minimal bloody fluid along the left paracolic area was aspirated from the abdomen. The greater omentum was pulled down over the anastomosis. The patient tolerated the procedure well. A Sam-Conchita device was used to place a single suture of #1 Vicryl in the 12 mm port site. The abdomen was then deflated and the trocars were all removed. The fascia externally at the 12 mm site was closed with a single suture of #2-0 Vicryl. The skin incisions were all closed with buried #4-0 Vicryl and Steri-Strips. Light dressings were applied. The patient tolerated the procedure well. I did infiltrate some additional 0.25% Marcaine along all of his incisions before applying the dressings. He was awakened in the operating room, extubated and moved to the recovery room in stable condition.
[2018-08-13 10:00] VITALS: BP 95/60
[2018-08-13 14:00] VITALS: BP 100/87
[2018-08-13 18:00] VITALS: BP 101/62
[2018-08-13] MEDS: TAMSULOSIN 0.4 MG CAP PO SCH (20:22)
[2018-08-13] MEDS: ENOXAPARIN 40 MG/0.4 ML SYRINGE (J1650) SC SCH (20:22)
[2018-08-13 22:00] VITALS: BP 128/60
[2018-08-14 02:00] VITALS: BP 123/62
[2018-08-14 06:00] VITALS: BP 116/61
[2018-08-14] MEDS: ADVAIR HFA 230/21MCG INHALER INH SCH ×2 (07:37→21:19)
[2018-08-14] MEDS: AMITRIPTYLINE 10 MG TAB PO SCH ×2 (09:57→21:07)
[2018-08-14] MEDS: ATENOLOL 50 MG TAB PO SCH (09:58)
[2018-08-14 10:00] VITALS: BP 134/74
[2018-08-14 14:00] VITALS: BP 137/72
[2018-08-14 18:00] VITALS: BP 134/76
[2018-08-14] MEDS: TAMSULOSIN 0.4 MG CAP PO SCH (21:07)
[2018-08-14] MEDS: ENOXAPARIN 40 MG/0.4 ML SYRINGE (J1650) SC SCH (21:08)
[2018-08-14 22:00] VITALS: BP 136/80
[2018-08-15 02:00] VITALS: BP 134/69
[2018-08-15 06:00] VITALS: BP 144/82
[2018-08-15] MEDS: ADVAIR HFA 230/21MCG INHALER INH SCH ×2 (07:43→21:45)
[2018-08-15] MEDS: AMITRIPTYLINE 10 MG TAB PO SCH ×2 (09:43→20:41)
[2018-08-15] MEDS: ATENOLOL 50 MG TAB PO SCH (09:44)
[2018-08-15 09:55] LABS: BASO % 0.1 % (0.0-1.0); EOS # 0.1 10^3/uL (0.0-0.50); EOS % 1.2 % (0.0-3.0); HEMATOCRIT 36.7 % (42.0-52.0); HEMOGLOBIN 11.9 g/dl (13.5-17.5); LYMPH # 0.7 10^3/uL (1.5-4.5); LYMPH % 7.4 % (24.0-44.0); MEAN CORPUSCULAR HEMOGLOBIN 28.5 pg (27.0-33.0); MEAN CORPUSCULAR HGB CONC 32.4 g/dl (32.0-36.5); MEAN CORPUSCULAR VOLUME 87.8 fl (80.0-96.0); MONO # 0.6 10^3/uL (0.0-0.8); MONO % 6.1 % (0.0-5.0); NEUTROPHILS # 8.2 10^3/uL (1.8-7.7); PLATELET COUNT, AUTOMATED 324 10^3/uL (150-450); RED BLOOD COUNT 4.18 10^6/uL (4.30-6.10); WHITE BLOOD COUNT 9.7 10^3/uL (4.0-10.0)
[2018-08-15 10:00] VITALS: BP 127/75
[2018-08-15 10:10] LABS: ALT/SGPT 13 U/L (12-78); BILIRUBIN,TOTAL 0.5 MG/DL (0.2-1.0); BLOOD UREA NITROGEN 10 MG/DL (7-18); CALCIUM LEVEL 8.6 MG/DL (8.8-10.2); CARBON DIOXIDE LEVEL 29 MEQ/L (21-32); CHLORIDE LEVEL 106 MEQ/L (98-107); CREATININE FOR GFR 0.76 MG/DL (0.70-1.30); GLOMERULAR FILTRATION RATE > 60.0 (>35); GLUCOSE, FASTING 133 MG/DL (70-100); POTASSIUM SERUM 3.4 MEQ/L (3.5-5.1); SODIUM LEVEL 139 MEQ/L (136-145); TOTAL PROTEIN 6.1 GM/DL (6.4-8.2)
[2018-08-15] MEDS: VALSARTAN 80 MG TAB (DIOVAN) PO SCH (11:54)
[2018-08-15] MEDS: OMEPRAZOLE 20 MG CAP PO SCH ×2 (11:54→20:41)
[2018-08-15] MEDS: POTASSIUM CHLORIDE 10 MEQ SR TABLET PO SCH ×2 (11:55→15:46)
[2018-08-15 14:00] VITALS: BP 143/68
--- NOTE | 2018-08-15 14:06 | IPN ---
DATE: 08/14/2018 HISTORY: The patient is now postop day #2 from his laparoscopic robotic-assisted partial colectomy for carcinoma. He tolerated regular food yesterday well. The Shelby catheter was continued, and he was started on Flomax last night. The nurse reports that he had a small bowel movement that was formed earlier today. Vital signs show that he has been afebrile over the past 24 hours. His pulse has ranged primarily in the 60s to low 70s and his blood pressure is good. Intake and output shows that yesterday he had 2900 in with 1300 of urine output. PHYSICAL EXAMINATION: The patient is alert and appears oriented. The nurse did report that he was trying impatiently to get out of bed or early this morning and managed to remove his saline lock. Heart exam shows a regular rhythm. Lungs are clear. The abdomen is soft and without any undue tenderness. He has active bowel sounds. Dressings were removed and his incisions look good. 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 The carcinoma invaded the submucosa muscularis propria and invaded into the pericolonic fat. Six nodes were identified, which were small, maximally 4-5 mm, and there was no evidence of any metastatic carcinoma in any of them. IMPRESSION: The patient appears to be making good progress. I think his pathology, all things considered, is quite good with negative nodes. He is tolerating a regular diet and has had one small bowel movement. PLAN: I will plan on removing his Shelby catheter in the morning. He will have had two doses of Flomax by then. I will request a physical therapy evaluation to encourage ambulation and try to increase his strength.
--- NOTE | 2018-08-15 14:07 | IPN ---
DATE: 08/13/2018 HISTORY: Patient is an 87-year-old man, now 1 day postop from a robotic-assisted laparoscopic resection of the splenic flexure, which contained a malignant mass. He has tolerated clear liquids well and denies any nausea or vomiting. He has not had any flatus or bowel movement yet. He does report some pain with coughing but otherwise appears quite comfortable. Vital signs show that he has been afebrile since surgery. His pulse is in the 60s with a blood pressure that is acceptable. He remains on oxygen as he is on oxygen at night at home and his oxygen saturations are generally in the low 90s. Intake and output show that yesterday he had 2200 recorded in, although this did not apparently include his intraoperative fluids of approximately 3500. He had a urine output of 800 recorded. PHYSICAL EXAM: Patient is alert and appears oriented. He appears fairly comfortable at rest. Heart exam shows a regular rhythm. The lungs are clear. The abdomen is nondistended. His dressings are dry. He has some bowel sounds present. There is no undue tenderness identified. LABORATORY FINDINGS: Patient had some morning labs that showed a white count of 12, hemoglobin 11, hematocrit 35 and a platelet count of 292,000. Differential count showed 84% neutrophils and 10% lymphocytes. Chemistry profile showed normal electrolytes, BUN, creatinine, and glucose. IMPRESSION: The patient is doing well following his partial colectomy yesterday. He has not voided overnight, so a Shelby catheter was inserted today. He reported that he had some sensation of the need to void but could not. PLAN: The patient's Shelby catheter will be continued tonight. I will start him on some tamsulosin this evening. His diet is advanced to regular. His IV will be saline locked. He is encouraged to be up out of bed and moving.
[2018-08-15 18:00] VITALS: BP 135/68
[2018-08-15] MEDS: ENOXAPARIN 40 MG/0.4 ML SYRINGE (J1650) SC SCH (20:41)
[2018-08-15] MEDS: TAMSULOSIN 0.4 MG CAP PO SCH (20:41)
[2018-08-15 22:00] VITALS: BP 142/79
[2018-08-16 01:41] LABS: ABG BASE EXCESS 4.2 (-2.0-2.0); ABG O2 SATURATION 93.3 % (95.0-99.0); ABG PARTIAL PRESSURE O2 67.5 mmHg (75.0-100.0); ABG STANDARD HCO3 28.1 MEQ/L (22.0-26.0); ABG TOTAL CO2 29.2 MEQ/L (23.0-31.0); ABG pH (ARTERIAL) 7.474 UNITS (7.350-7.450)
[2018-08-16 02:00] VITALS: BP 159/89
[2018-08-16 06:00] VITALS: BP 139/77
[2018-08-16] MEDS: ADVAIR HFA 230/21MCG INHALER INH SCH ×2 (07:44→21:50)
[2018-08-16] MEDS: AMITRIPTYLINE 10 MG TAB PO SCH ×2 (09:27→20:36)
[2018-08-16] MEDS: OMEPRAZOLE 20 MG CAP PO SCH ×2 (09:27→20:36)
[2018-08-16] MEDS: VALSARTAN 80 MG TAB (DIOVAN) PO SCH (09:28)
[2018-08-16] MEDS: ATENOLOL 50 MG TAB PO SCH (09:28)
[2018-08-16 10:00] VITALS: BP 108/62
--- NOTE | 2018-08-16 11:05 | REP ---
Portable chest x-ray: Sitting AP view. History: Follow-up lung cancer. Comparison study is from June 18, 2018. Findings: Interstitial markings are prominent in the bases bilaterally consistent with bibasilar interstitial fibrosis. Heart is not felt to be enlarged. No acute infiltrate is seen. Pulmonary vasculature is not increased. Oxygen delivery tubing is seen. Impression: Bibasilar interstitial fibrosis pattern. Otherwise no acute disease. Electronically Signed by Triston Garcia MD 08/16/2018 10:57 A
[2018-08-16 14:00] VITALS: BP 151/78
--- NOTE | 2018-08-16 14:46 | IPN ---
DATE: 08/15/2018 HISTORY: The patient is now postop day #3 from a laparoscopic robotic-assisted resection of the splenic flexure for adenocarcinoma. The patient has generally been doing well. His Shelby catheter was removed this morning and he has had 2 days of Flomax to try to improve his bladder emptying. He has been eating a regular diet and reports he has had several small bowel movements. He denies any nausea or vomiting and his pain seems less. Vital signs: Show that he has been afebrile for the past 24 hours. His pulse has ranged between 75 and 104. His blood pressure is good and his pulse oximetry on 3 liters of nasal cannula oxygen is in the low 90s. Intake and output shows that yesterday he had 780 in with 1850 out. He had 650 mL of urine this morning before his Shelby catheter was removed. PHYSICAL EXAMINATION The patient is alert. He does seem to be having some disorientation at times. When I spoke with him. He does appear to understand that he has had surgery and that his abdominal pain will get better with time. He knows that we are waiting for him to void spontaneously. He did tell me that he had been somewhere to a large room with his [id number] where he was asked to climb four stairs and this sounds like a reference to a physical therapy evaluation, though he did not put it in this context. He is certainly not in distress. He is moving all extremities appropriately. Heart exam shows a regular rhythm. The lungs are clear. The abdomen is nondistended and he has active bowel sounds and the abdomen is soft with minimal tenderness. Laboratory studies show a white count of 9.7 with a differential showing 85% neutrophils, 7% lymphocytes and 6% monocytes. Hemoglobin is 12 with hematocrit of 37 and platelet count is 324,000. His chemistry profile shows a sodium of 139, potassium 3.4, chloride 106, CO2 of 29, BUN of 10, creatinine 0.8 and a glucose of 133. Total protein is 6.1 with an albumin of 2.0. IMPRESSION: The patient overall seems to be doing quite well from his colectomy. His abdomen is benign and he is tolerating a regular diet. His Shelby has been removed and we are waiting to see if he can void spontaneously. He does seem to be having some disorientation or delirium though this seems to be mild and he is in no distress. PLAN: We will continue to monitor his mental state. We will monitor his voiding today. At the time his Shelby was inserted in the operating room there was a suggestion that he had some degree of urinary retention preoperative. We will accumulate a larger volume of urine in the bladder before determining that he needs his Shelby reinserted.
[2018-08-16 18:00] VITALS: BP 140/83
[2018-08-16] MEDS: TAMSULOSIN 0.4 MG CAP PO SCH (20:36)
[2018-08-16] MEDS: ENOXAPARIN 40 MG/0.4 ML SYRINGE (J1650) SC SCH (20:36)
[2018-08-16 22:00] VITALS: BP 105/66
[2018-08-17 06:00] VITALS: BP 117/69
[2018-08-17] MEDS: ADVAIR HFA 230/21MCG INHALER INH SCH ×2 (07:35→20:19)
--- NOTE | 2018-08-17 08:10 | IPN ---
DATE: 08/16/2018 HISTORY: Patient is now postop day #5 from a resection of the splenic flexure for a large low grade adenocarcinoma. Patient tolerated the surgery well. He is on a regular diet and tolerating this well. He has been having bowel movements. He is working with physical therapy on ambulation and stability. Vital signs show that he has been afebrile over the past 24 hours. His pulse is in the 90s to 100 range generally with good blood pressure, and his oxygen saturation on 3 liters of nasal cannula is in the low 90s generally. Intake and output shows that yesterday he had 1470 in with 1150 out. His Shelby catheter was removed yesterday and he has been able to void spontaneously. I did start him on some tamsulosin now 3 days ago and he has had two doses so far. PHYSICAL EXAM: Patient is lying quietly in his bed. He appears somewhat tired today. Skin is warm and dry. Sclerae are anicteric. Heart exam shows a regular rhythm. Abdomen is soft and nondistended. He has active bowel sounds. He has no undue tenderness. LABORATORY STUDIES: Patient has no new labs today. He did have a chest x-ray done earlier, which revealed some bibasilar interstitial fibrosis pattern, but no acute findings. He did have a blood gas early this morning, which showed a pH of 7.47, CO2 of 39 and an O2 of 68. Patient has been having some confusion at times. When I spoke to him today, he knows that he is in the hospital. He does get a little tongue-tied at times trying to express his thoughts. He expresses that he wants his freedom and all of these people around him are telling him to do things and keeping him from doing simple things like going to the bathroom. IMPRESSION: Patient is doing very well from his surgery. Physical therapy does not believe that he is safe for discharge home alone without some additional training regarding awareness and balance and management of oxygen hose. His oxygen saturations have dropped today to 84 with ambulation, so he likely needs [id number] oxygen. His disorientation I think is primarily related to being out of his normal element with many strangers and a completely different eating schedule, sleep schedule, etc. We have not identified some infection or other abnormality to account for this. PLAN: Patient will remain in the hospital and continue his total parenteral nutrition (TPN). I am told at that his son was in earlier today and declared that the patient was not ready to go home for 2 days and left. I have spoken with nursing to encourage them to try to reorient the patient. I also spoke with Dr. Jim of the hospitalist service, not in a formal consultation but just asked if he thought there would be any benefit to medications for the patient's disorientation, but we both agreed that more medication is probably not going to clear his head but potentially create further issues.
[2018-08-17] MEDS: OMEPRAZOLE 20 MG CAP PO SCH ×2 (08:52→20:15)
[2018-08-17] MEDS: ATENOLOL 50 MG TAB PO SCH (08:53)
[2018-08-17] MEDS: VALSARTAN 80 MG TAB (DIOVAN) PO SCH (08:54)
[2018-08-17] MEDS: AMITRIPTYLINE 10 MG TAB PO SCH ×2 (08:54→20:15)
[2018-08-17 10:00] VITALS: BP 115/72
[2018-08-17] MEDS: SODIUM CHLORIDE NASAL 0.65% SPRAY BTL (OCEAN) SCH ×2 (12:34→20:16)
[2018-08-17 14:00] VITALS: BP 97/63
[2018-08-17 15:20] VITALS: BP 117/66
[2018-08-17 18:00] VITALS: BP 113/53
[2018-08-17] MEDS: TAMSULOSIN 0.4 MG CAP PO SCH (20:15)
[2018-08-17] MEDS: ENOXAPARIN 40 MG/0.4 ML SYRINGE (J1650) SC SCH (20:16)
[2018-08-17 22:00] VITALS: BP 118/56
--- NOTE | 2018-08-17 22:04 | IPNPDOC ---
Text Note Date of Service The patient was seen on 08/17/18. NOTE No acute events overnight. He is tolerating diet. Denies nausea, emesis, fevers, pains, or confusion. He is passing flatus, and having normal BMs. The only thing keeping him in the hospital is PT. VSSAF NAD abd - soft, nt, nd, incisions c/d/i A) 87y/o male s/p RA splenic flexure resection P) reg diet ambulate ok to shower PO pain control PT will dc once cleared by PT Stephan Perez DO A-FIB/CHADSVASC A-FIB History Current/History of A-Fib/PAF?: No VS,Fishbone, I+O VS, Fishbone, I+O Vital Signs Date Time Temp Pulse Resp B/P (MAP) Pulse Ox O2 Delivery O2 Flow Rate FiO2 08/17/18 22:00 98.0 77 22 118/56 (76) 96 3.0 08/17/18 07:37 Nasal Cannula I&O- Last 24 Hours up to 6 AM 08/17/18 06:00 Intake Total 720 ml Output Total 250 ml Balance 470 ml CLYATON PEREZ DO Aug 17, 2018 22:04
[2018-08-18] VITALS (7 sets, daily range): BP systolic 86–130; BP diastolic 56–67
--- NOTE | 2018-08-18 08:51 | IPNPDOC ---
Text Note Date of Service The patient was seen on 08/18/18. NOTE No acute events overnight. He is tolerating diet. Denies nausea, emesis, fevers, pains, or confusion. He is passing flatus, and having normal BMs. The only thing keeping him in the hospital is PT. I did not see any notes from PT yesterday, but he said that he walked in the halls with him. VSSAF NAD abd - soft, nt, nd, incisions c/d/i A) 87y/o male s/p RA splenic flexure resection P) reg diet ambulate ok to shower PO pain control PT will dc once cleared by PT Stephan Perez DO A-FIB/CHADSVASC A-FIB History Current/History of A-Fib/PAF?: No VS,Fishbone, I+O VS, Fishbone, I+O Vital Signs Date Time Temp Pulse Resp B/P (MAP) Pulse Ox O2 Delivery O2 Flow Rate FiO2 08/18/18 06:00 97.5 102 20 118/62 (80) 93 3.0 08/17/18 07:37 Nasal Cannula I&O- Last 24 Hours up to 6 AM 08/18/18 06:00 Intake Total 1190 ml Output Total 800 ml Balance 390 ml CLAYTON PEREZ DO Aug 18, 2018 08:51
[2018-08-18] MEDS: AMITRIPTYLINE 10 MG TAB PO SCH ×2 (09:53→20:24)
[2018-08-18] MEDS: OMEPRAZOLE 20 MG CAP PO SCH ×2 (09:53→20:24)
[2018-08-18] MEDS: ADVAIR HFA 230/21MCG INHALER INH SCH ×2 (09:54→21:00)
[2018-08-18] MEDS: SODIUM CHLORIDE NASAL 0.65% SPRAY BTL (OCEAN) SCH ×2 (09:54→20:24)
[2018-08-18] MEDS: VALSARTAN 80 MG TAB (DIOVAN) PO SCH (10:14)
[2018-08-18] MEDS: ATENOLOL 50 MG TAB PO SCH (10:14)
[2018-08-18] MEDS: TAMSULOSIN 0.4 MG CAP PO SCH (20:24)
[2018-08-18] MEDS: ENOXAPARIN 40 MG/0.4 ML SYRINGE (J1650) SC SCH (20:24)
[2018-08-19 02:00] VITALS: BP 116/68
[2018-08-19 06:00] VITALS: BP 118/77
[2018-08-19] MEDS: ADVAIR HFA 230/21MCG INHALER INH SCH ×2 (07:31→21:35)
[2018-08-19] MEDS: AMITRIPTYLINE 10 MG TAB PO SCH ×2 (08:39→20:13)
[2018-08-19] MEDS: ATENOLOL 50 MG TAB PO SCH (08:40)
[2018-08-19] MEDS: OMEPRAZOLE 20 MG CAP PO SCH ×2 (08:40→20:13)
[2018-08-19] MEDS: VALSARTAN 80 MG TAB (DIOVAN) PO SCH (08:41)
[2018-08-19] MEDS: SODIUM CHLORIDE NASAL 0.65% SPRAY BTL (OCEAN) SCH ×2 (08:42→20:14)
[2018-08-19 10:00] VITALS: BP 103/56
[2018-08-19 14:00] VITALS: BP 110/62
[2018-08-19 18:00] VITALS: BP 114/58
[2018-08-19] MEDS: ENOXAPARIN 40 MG/0.4 ML SYRINGE (J1650) SC SCH (20:13)
[2018-08-19] MEDS: TAMSULOSIN 0.4 MG CAP PO SCH (20:13)
[2018-08-19 22:00] VITALS: BP 140/63
[2018-08-20 02:00] VITALS: BP 114/62
[2018-08-20 06:00] VITALS: BP_SYST 123; BP_DIAS 63; BP_DIAS 66
[2018-08-20] MEDS: ADVAIR HFA 230/21MCG INHALER INH SCH (07:38)
[2018-08-20] MEDS: VALSARTAN 80 MG TAB (DIOVAN) PO SCH (09:08)
[2018-08-20 09:09] VITALS: BP 110/78
[2018-08-20] MEDS: AMITRIPTYLINE 10 MG TAB PO SCH (09:09)
[2018-08-20] MEDS: ATENOLOL 50 MG TAB PO SCH (09:09)
[2018-08-20] MEDS: SODIUM CHLORIDE NASAL 0.65% SPRAY BTL (OCEAN) SCH (09:10)
[2018-08-20] MEDS: OMEPRAZOLE 20 MG CAP PO SCH (09:10)
[2018-08-20 10:00] VITALS: BP 138/64
[2018-08-20 14:00] VITALS: BP 101/48
[2018-08-20] MEDS ORDERED: FLOM0.4C39 PO (14:30)
--- NOTE | 2018-08-20 15:09 | IPN ---
DATE: 08/19/2018 HISTORY: The patient is now postoperative day number seven from a laparoscopic resection of his splenic flexure for a large adenocarcinoma of the colon. He has been doing well from his surgery but has had some issues with poor ambulation tolerance and the need for tkayih-eyu-ptnkh oxygen. He has been continuing with physical therapy. He is on a regular diet and having regular bowel function. He is now voiding without difficulty and remains on tamsulosin. Vital signs show that he has been afebrile over the past 24 hours. His pulse is in the 80s and 90s. Blood pressure is good and his intake and output from yesterday showed 1400 in with 600 recorded out. He had five bowel movements recorded yesterday. PHYSICAL EXAMINATION: The patient is sitting up in a chair at the bedside. He appears in good spirits and looks comfortable. Skin is warm and dry. Heart examination shows a regular rhythm. He has good bilateral breath sounds. The abdomen is soft with active bowel sounds and he has no undue tenderness. IMPRESSION: The patient is doing well now one week postoperative from his surgery. Physical therapy saw him late this afternoon and now feel that he has progressed adequately for discharge as long as there are family members with him 24 hours a day seven days a week for at least the first few days at home. He will need to be on home oxygen [id number]-[id number] instead of just at night based on his ambulatory oxygen readings. PLAN: I will plan for the patient to be discharged tomorrow as long as the family is going to be available. We will need to arrange for oxygen therapy at home. I am told that his daughter will be flying up from [place] to stay with him for a time.
== END 2018-08-20 18:30 | disposition home health service (06) | DRG 330 ==
LOC: M OR 05:51 → M MSPAV 14:32
PROVIDERS: ADMIT Surgery; ATTEND Surgery
PROC: 0DBL4ZZ Excision of Transverse Colon, Percutaneous Endoscopic Approach (ICD-10-PCS; 2018-08-12)
PROC: 8E0W4CZ Robotic Assisted Procedure of Trunk Region, Percutaneous Endoscopic Approach (ICD-10-PCS; 2018-08-12)
PROC: 0DBM4ZZ Excision of Descending Colon, Percutaneous Endoscopic Approach (ICD-10-PCS; principal; 2018-08-12 07:30)
DX: C18.5 Malignant neoplasm of splenic flexure (principal); C34.90 Malignant neoplasm of unspecified part of unspecified bronchus or lung; Z88.5 Allergy status to narcotic agent; Z79.899 Other long term (current) drug therapy; Z79.82 Long term (current) use of aspirin; K21.9 Gastro-esophageal reflux disease without esophagitis; I10 Essential (primary) hypertension; E78.5 Hyperlipidemia, unspecified; M19.90 Unspecified osteoarthritis, unspecified site; J44.9 Chronic obstructive pulmonary disease, unspecified; Z96.641 Presence of right artificial hip joint; Z96.642 Presence of left artificial hip joint; Z96.651 Presence of right artificial knee joint; F41.9 Anxiety disorder, unspecified

== ENCOUNTER 2018-09-19 12:09 | Inpatient (IN) | payer MEDICARE ==
[~2018-09-19] VITALS: Ht 182.9 cm; Wt 70.6 kg
[~2018-09-19 12:09] MED LIST changes: +FLOM0.4C39 PO; +METR-265; +NEOM500T; -SYST0.6S OP; +SYST0.6S OU
[2018-09-19] MEDS ORDERED: VALS160T PO (12:18)
[2018-09-19] MEDS ORDERED: ADVA115A INH (12:18)
[2018-09-19 12:56] LABS: BASO % 0.2 % (0.0-1.0); EOS % 0.2 % (0.0-3.0); HEMATOCRIT 33.8 % (42.0-52.0); HEMOGLOBIN 10.7 g/dl (13.5-17.5); LYMPH # 1.1 10^3/uL (1.5-4.5); LYMPH % 9.4 % (24.0-44.0); MEAN CORPUSCULAR HEMOGLOBIN 27.2 pg (27.0-33.0); MEAN CORPUSCULAR HGB CONC 31.7 g/dl (32.0-36.5); MEAN CORPUSCULAR VOLUME 85.8 fl (80.0-96.0); MONO # 1.1 10^3/uL (0.0-0.8); MONO % 9.6 % (0.0-5.0); NEUTROPHILS # 8.9 10^3/uL (1.8-7.7); NEUTROPHILS % 80.2 % (36.0-66.0); PLATELET COUNT, AUTOMATED 408 10^3/uL (150-450); RED BLOOD COUNT 3.94 10^6/uL (4.30-6.10); WHITE BLOOD COUNT 11.1 10^3/uL (4.0-10.0)
[2018-09-19 12:59] LABS: ABG BASE EXCESS 1.4 (-2.0-2.0); ABG HCO3 25.4 MEQ/L (22.0-26.0); ABG O2 SATURATION 93.2 % (95.0-99.0); ABG PARTIAL PRESSURE CO2 37.7 mmHg (35.0-45.0); ABG PARTIAL PRESSURE O2 69.9 mmHg (75.0-100.0); ABG STANDARD HCO3 25.6 MEQ/L (22.0-26.0); ABG TOTAL CO2 26.5 MEQ/L (23.0-31.0); ABG pH (ARTERIAL) 7.446 UNITS (7.350-7.450)
[2018-09-19 13:10] LABS: INR 1.24; PROTHROMBIN TIME 15.8 SECONDS (12.1-14.4)
[2018-09-19 13:34] LABS: ALBUMIN 1.8 GM/DL (3.2-5.2); ALT/SGPT 24 U/L (12-78); BILIRUBIN,DIRECT 0.2 MG/DL (0.0-0.2); BILIRUBIN,TOTAL 0.5 MG/DL (0.2-1.0); BLOOD UREA NITROGEN 19 MG/DL (7-18); CARBON DIOXIDE LEVEL 27 MEQ/L (21-32); CHLORIDE LEVEL 104 MEQ/L (98-107); CPK CREATINE PHOSPHOKINASE 25 U/L (39-308); CREATININE FOR GFR 0.78 MG/DL (0.70-1.30); GLOMERULAR FILTRATION RATE > 60.0 (>35); GLUCOSE, FASTING 94 MG/DL (70-100); NT-PRO BNP 1337 PG/ML (<450); POTASSIUM SERUM 3.7 MEQ/L (3.5-5.1); SODIUM LEVEL 139 MEQ/L (136-145); THYROID STIMULATING HORMONE 0.739 uIU/ML (0.358-3.740); TOTAL PROTEIN 7.1 GM/DL (6.4-8.2); TROPONIN I < 0.02 NG/ML (< 0.10)
[2018-09-19] MEDS ORDERED: PIPERACILLIN/TAZOBACTAM SOD 3.375 GM in D5W MINI-BAG PLUS 50 ML IV ONE (14:00)
[2018-09-19] MEDS ORDERED: MOM 30ML SUSPENSION UDC PO PRN (14:45)
[2018-09-19] MEDS ORDERED: ALBUTEROL SULFATE 2.5 MG/0.5 ML INH NEB SOLN INH PRN (14:45)
[2018-09-19] MEDS ORDERED: ACETAMINOPHEN TAB 650MG DOSE (2X325MG) PO PRN (14:45)
[2018-09-19] MEDS ORDERED: VENTAER INH (14:48)
[2018-09-19] MEDS ORDERED: FLOM0.4C39 PO (14:48)
[2018-09-19] MEDS ORDERED: PARO20TA4 PO (14:48)
[2018-09-19] MEDS ORDERED: OMEP-218 PO (14:53)
[2018-09-19] MEDS ORDERED: ISOVUE-370 76% 100ML VIAL (Q9967) As Ordered ONE (14:57)
--- NOTE | 2018-09-19 15:11 | REP ---
PORTABLE CHEST X-RAY: Two views. HISTORY: Dyspnea and cough. Comparison chest x-ray August 16, 2018. FINDINGS: Today's radiographs demonstrate large dense infiltrates in the lower lobes bilaterally consistent with pneumonia. This is superimposed on interstitial fibrosis. Heart is not enlarged. Oxygen delivery tubing and EKG monitoring electrodes overlie the chest. IMPRESSION: Large dense infiltrates bilaterally in the lower lobes consistent with pneumonia. Electronically Signed by Triston Garcia MD 09/19/2018 03:53 P
--- NOTE | 2018-09-19 15:36 | REP ---
Clinical: Right upper lobe infiltrate. History of lung cancer. Technique: Axial contrast enhanced images from the thoracic inlet to the upper abdomen with coronal and sagittal re-formations using 100 ml Isovue 370 intravenous contrast material. Comparison: CT images from PET CT dated 05/28/2018. Findings: Extensive consolidations are appreciated in the bilateral lower lobes along with scattered elements of "tree in bud "infiltrates to the right upper lobe and right middle lobe. Underlying chronic interstitial changes and bronchiectasis are noted. There is a 16 mm nodule in the apical segment of the right lower lobe which is stable in size but now demonstrates small amount of cavitation (images 47-52). No significant effusion. No pneumothorax. Extensive mediastinal and bilateral hilar (right greater than left) adenopathy is again noted and similar to prior examination with right hilar lymph nodes measuring up to approximately 3.2 cm. Further evaluation of the mediastinum demonstrates atherosclerotic changes to the thoracic aorta and coronary arteries without aortic aneurysm or dissection and without cardiomegaly or pericardial effusion. Pulmonary vasculature appears normal. Musculoskeletal structures demonstrate age-related degenerative changes. Limited upper abdomen demonstrates essentially normal stable adrenal glands as well as extensive diffuse gastric wall thickening. Impression: 1. Right lower lobe lesion is stable in size but now demonstrates small cavitary component. 2. Extensive mediastinal and hilar adenopathy similar to prior examination. 3. Superimposed dense lower lobe consolidations and scattered "tree in bud infiltrates." 4. Significant gastric wall thickening. Electronically Signed by Renzo Overton MD 09/19/2018 03:27 P
[2018-09-19] MEDS: IPRATROPIUM 0.5MG/ALBUTEROL 2.5MG INH SOL UD 3ML (DUONEB)(J7620) INH SCH ×2 (16:00→20:00)
[2018-09-19] MEDS ORDERED: POLYVINYL ALCOHOL OPHTH SOLN 15 ML(LIQUITEARS) OU PRN (16:00)
--- NOTE | 2018-09-19 16:21 | HPEPDOC ---
General Date of Admission September 19, 2018 at 14:37 Date of Service: September 19, 2018 Chief Complaint The patient is a 87-year-old male admitted with a reason for visit of Hypoxia , Pneumonia. Source: Patient History of Present Illness The patient is a 87-year-old gentleman who presents to the ER with complaints of increasing shortness of breath, cough as well as wheezing worsening over the last couple of weeks. 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 He reports he had been doing okay thereafter, however, as noted, he had been having increasing respirator symptoms for the last couple of weeks. He reports productive cough with whitish sputum. Denies any associated chest pain fevers or sweats but does report associated chills particularly in the evening. Reports associated weakness. Denies any abdominal pain. No change in his bladder or bowel habits. Given the worsening symptoms, he had presented to the ER. Home Medications Scheduled Amitriptyline HCl (Amitriptyline HCl) 10 Mg Tab, 20 MG PO BID, (Reported) Atenolol (Atenolol) 50 Mg Tab, 50 MG PO DAILY, (Reported) Cholecalciferol (Vitamin D3) (Vitamin D3) 2,000 Unit Tab, 2,000 UNIT PO DAILY, (Reported) Fluticasone Propion/Salmeterol (Advair Hfa 115-21 Mcg Inhaler) 12 Gm Hfa.aer.ad, 2 PUFFS INH BID, (Reported) Lactobacillus Acidophilus (Digestive Probiotic) 1 Each Capsule, 1 CAP PO DAILY, (Reported) Minier-3S/Dha/Epa/Fish Oil (Fish Oil EC 1,200 mg Softgel) 1 Cap Cap, 2 CAP PO BID, (Reported) Omeprazole (Omeprazole) 20 Mg Capsule.dr, 20 MG PO BID, (Reported) Paroxetine HCl (Paroxetine) 20 Mg Tablet, 20 MG PO DAILY, (Reported) Tamsulosin HCl (Flomax) 0.4 Mg Capsule, 0.4 MG PO QHS, (Reported) Valsartan/Hydrochlorothiazide (Valsartan-Hctz 160-12.5 mg Tab) 1 Each Tablet, 0.5 TAB PO DAILY, (Reported) Scheduled PRN Albuterol Sulfate (Ventolin Hfa) 18 Gm Hfa.aer.ad, 2 PUFF INH Q4H PRN for SHORTNESS OF BREATH, (Reported) Propylene Glycol (Systane Complete) 0.6 % [place], 1 DROP OU BID PRN for DRY EYES, (Reported) Allergies Coded Allergies: ibuprofen (Verified Allergy, Mild, Flu like symptoms, 08/06/18) ciprofloxacin (Verified Allergy, Unknown, 08/06/18) escitalopram (Verified Allergy, Unknown, 08/06/18) fluoxetine (Verified Allergy, Unknown, 08/06/18) pantoprazole (Verified Allergy, Unknown, 08/06/18) sertraline (Verified Allergy, Unknown, 08/06/18) venlafaxine (Verified Allergy, Unknown, 08/06/18) morphine (Verified Adverse Reaction, Intermediate, psychotic, 08/06/18) Past Medical History Medical History Colon cancer involving splenic flexure status post resection of distal transverse and proximal descending colon with primary anastomosis, stage III lung cancer, GERD, hyperlipidemia, hypertension, osteoarthritis, anxiety, oxygen use at nighttime, hard of hearing Surgical History Left hip replacement, left carpal tunnel release, TURP for BPH, right inguinal hernia repair, right knee replacement, bilateral hip replacement, right wrist fusion Family History Father had heart disease and pneumonia, mom had breast cancer Social History * Smoker: other (smoked less than one pack per day for 20 years quit in 1993.) Alcohol: other (2 glasses of wine a day) Drugs: denies Has a cane as well as a walker to ambulate at baseline A-FIB/CHADSVASC A-FIB History Current/History of A-Fib/PAF?: No Review of Systems Other systems Negative for 10 systems except as noted under history of present illness Physical Examination General Exam: Positive: Alert, Cooperative, No Acute Distress Eye Exam: Positive: PERRLA ENT Exam: Positive: Mucous membr. moist/pink Chest Exam: Positive: Other (diminished air entry bilaterally, right lower lung crackles. No overt wheezing at this time, no distress) Heart Exam: Positive: Rate Normal, Regular Rhythm, Normal S1, Normal S2; Negative: Gallops, Rubs Abdomen Exam: Positive: Soft; Negative: Tenderness, Hepatospenomegaly Extremity Exam: Positive: Edema, Other (bilateral lower except 1+ pitting edema) Skin Exam: Positive: Nl turgor and temperature; Negative: Rash Neuro Exam: Positive: Other (awake, alert, oriented 3, answering portions appropriately and moving all 4 extremities) Psych Exam: Positive: Other (appropriate mood and affect) Vital Signs Vital Signs Date Time Temp Pulse Resp B/P (MAP) Pulse Ox O2 Delivery O2 Flow Rate FiO2 09/19/18 15:24 75 20 91 Nasal Cannula 3.0 09/19/18 15:15 129/66 (87) 09/19/18 12:10 98.1 Laboratory Data Labs 24H Laboratory Tests 2 09/19/18 12:21: Lactic Acid Level 1.5 09/19/18 12:35: Immature Granulocyte % (Auto) 0.4, White Blood Count 11.1H, Red Blood Count 3.94L, Hemoglobin 10.7L, Hematocrit 33.8L, Mean Corpuscular Volume 85.8, Mean Corpuscular Hemoglobin 27.2, Mean Corpuscular Hemoglobin Concent 31.7L, Red Cell Distribution Width 15.1H, Platelet Count 408, Neutrophils (%) (Auto) 80.2H, Lymphocytes (%) (Auto) 9.4L, Monocytes (%) (Auto) 9.6H, Eosinophils (%) (Auto) 0.2, Basophils (%) (Auto) 0.2, Neutrophils # (Auto) 8.9H, Lymphocytes # (Auto) 1.1L, Monocytes # (Auto) 1.1H, Eosinophils # (Auto) 0.0, Basophils # (Auto) 0.0, Nucleated Red Blood Cells % (auto) 0.0, Prothrombin Time 15.8H, Prothromb Time International Ratio 1.24, Anion Gap 8, Glomerular Filtration Rate > 60.0, Calcium Level 9.0, Aspartate Amino Transf (AST/SGOT) 21, Alanine Aminotransferase (ALT/SGPT) 24, Alkaline Phosphatase 118H, Total Bilirubin 0.5, Direct Bilirubin 0.2, Total Creatine Kinase 25L, Creatine Kinase MB 2.0, Creatine Kinase MB Relative Index 9.20H, Troponin I < 0.02, NO-Wyu-P-Type Natriuretic Peptide 1337H, Total Protein 7.1, Albumin 1.8L, Albumin/Globulin Ratio 0.34L, Thyroid Stimulating Hormone (TSH) 0.739 09/19/18 12:43: Blood Gas Bicarbonate Standard 25.6, Arterial Blood pH 7.446, Arterial Blood Partial Pressure CO2 37.7, Arterial Blood Partial Pressure O2 69.9L, Arterial Blood Total CO2 26.5, Arterial Blood HCO3 25.4, Arterial Blood Base Excess 1.4, Arterial Blood Oxygen Saturation 93.2L CBC/BMP Laboratory Tests 09/19/18 12:35 Red Blood Count 3.94 L, Mean Corpuscular Volume 85.8, Mean Corpuscular Hemoglobin 27.2, Mean Corpuscular Hemoglobin Concent 31.7 L, Red Cell Distribution Width 15.1 H, Neutrophils (%) (Auto) 80.2 H, Lymphocytes (%) (Auto) 9.4 L, Monocytes (%) (Auto) 9.6 H, Eosinophils (%) (Auto) 0.2, Basophils (%) (Auto) 0.2, Neutrophils # (Auto) 8.9 H, Lymphocytes # (Auto) 1.1 L, Monocytes # (Auto) 1.1 H, Eosinophils # (Auto) 0.0, Basophils # (Auto) 0.0 Microbiology Microbiology 09/19/18 Blood Culture, Received Pending 09/19/18 Blood Culture, Received Pending Assessment/Plan Current Medications Acetaminophen (Tylenol Tab) 650 mg Q4H PRN PO PAIN OR FEVER; Start 09/19/18 at 14:45 Albuterol Sulfate (Proventil Neb) 2.5 mg Q4H PRN INH WHEEZING; Start 09/19/18 at 14:45 Albuterol/ Ipratropium (Duoneb (Ipr 0.5mg/Alb 2.5mg)) 3 ml RQID INH ; Start 09/19/18 at 16:00 Amitriptyline HCl (Elavil) 20 mg BID PO ; Start 09/19/18 at 21:00; Status UNV Artificial Tears (Akwa Tears) 1 drop QIDP PRN OU DRY EYES; Start 09/19/18 at 16:00; Status UNV Atenolol (Tenormin) 50 mg DAILY PO ; Start 09/20/18 at 09:00; Status UNV Enoxaparin Sodium (Lovenox) 40 mg QHS SC ; Start 09/19/18 at 21:00 Fish Oil (Minier-3 (1000mg)) 2 cap BID PO ; Start 09/19/18 at 21:00; Status UNV Home Med (Med Rec Complete!) ASDIRECTED XX ; Start 09/19/18 at 15:00; Stop 09/19/18 at 15:00; Status DC Hydrochlorothiazide (Hydrodiuril) 12.5 mg DAILY PO ; Start 09/20/18 at 09:00; Status UNV Lactobacillus Acidophilus (Bacid) 1 ea DAILY PO ; Start 09/20/18 at 09:00; Status UNV Magnesium Hydroxide (Milk Of Magnesia) 30 ml DAILY PRN PO CONSTIPATION; Start 09/19/18 at 14:45 Omeprazole (PriLOSEC) 20 mg DAILY PO ; Start 09/20/18 at 09:00; Status UNV Paroxetine HCl (PAXil) 20 mg DAILY PO ; Start 09/20/18 at 09:00; Status UNV Piperacillin Sod/ Tazobactam Sod 3.375 gm/Dextrose 100 ml @ 100 mls/hr Q6H IV ; Start 09/19/18 at 14:45; Status UNV Salmeterol Xinafoate/ Fluticasone (Advair Hfa 115/ 21) 2 puff BID INH ; Start 09/19/18 at 21:00; Status UNV Tamsulosin HCl (Flomax) 0.4 mg QHS PO ; Start 09/19/18 at 21:00; Status UNV Valsartan (Diovan) 160 mg DAILY PO ; Start 09/20/18 at 09:00; Status UNV Vitamin D (Vitamin D) 2,000 units DAILY PO ; Start 09/20/18 at 09:00; Status UNV Chest CT with contrast: Impression: 1. Right lower lobe lesion is stable in size but now demonstrates small cavitary component. 2. Extensive mediastinal and hilar adenopathy similar to prior examination. 3. Superimposed dense lower lobe consolidations and scattered "tree in bud infiltrates." 4. Significant gastric wall thickening Bilateral lower lobe pneumonia right greater than left, community-acquired, present on admission, in setting of stage III lung cancer: -CT chest findings as noted above -Patient was started on IV Zosyn in the ER particularly in setting of lung cancer as well as given somewhat weak cough at the time of my examinationwe will need to rule out underlying aspiration -Swallow evaluation by COMPUTER APPLICATIONS ENGINEER -Continue IV Zosyn -Incentive spirometry, Mucinex, duo nebs, supplemental oxygen as needed -Outpatient follow-up with Dr. Trotter per previous appointment on discharge for the lung cancer Hypertension: -Continue atenolol, losartan, HCTZ with holding parameters. 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 with primary anastomosis: -Reports he has been tolerating oral intake well Generalized weakness: -PT/OT evaluation GERD: -PPI Hyperlipidemia: -Continue fish oil DVT prophylaxis: -Enoxaparin CODE STATUS: -DNR per my discussion with the patient. He reports he already has a MOLST form filled outI have requested his grandson to bring in a copy from home. Disposition: -Admit as inpatient to medical floor. Anticipated length of stay more than 2 midnights. Anticipate eventual discharge home once medically stable. Plan / VTE VTE Prophylaxis Ordered?: Yes YOLY GUAJARDO MD September 19, 2018 16:21
--- NOTE | 2018-09-19 16:34 | NUR ---
Recommend: Level 2 solids and regular thin liquids. Full upright position for all meals and meds. Dysphagia therapy follow up to ensure that Pt can tolerate upgrade when dentures have been brought in. Incentive inspirometer Addendum: 09/19/18 at 1635 by ELYSE SANCHEZ [facility] Amended: Links added.
[2018-09-19 16:35] VITALS: BP 134/59
[2018-09-19] MEDS ORDERED: D5W 100ML MINI-BAG PLUS As Ordered ONE (17:09)
[2018-09-19] MEDS ORDERED: ZOSYN 3.375 GM VIAL (J2543) As Ordered ONE (17:09)
[2018-09-19] MEDS: PIPERACILLIN/TAZOBACTAM SOD 3.375 GM in D5W MINI-BAG PLUS 50 ML IV SCH ×2 (17:55→23:22)
[2018-09-19] MEDS: ADVAIR HFA 115/21MCG INHALER INH SCH (20:07)
[2018-09-19] MEDS: TAMSULOSIN 0.4 MG CAP PO SCH (20:11)
[2018-09-19] MEDS: ENOXAPARIN 40 MG/0.4 ML SYRINGE (J1650) SC SCH (20:11)
[2018-09-19] MEDS: OMEGA-3 1000MG CAPSULE PO SCH (20:11)
[2018-09-19] MEDS: guaiFENesin ER 600 MG TAB PO SCH (20:11)
[2018-09-19] MEDS: AMITRIPTYLINE 10 MG TAB PO SCH (20:11)
[2018-09-19 22:00] VITALS: BP 122/64
[2018-09-20] MEDS: PIPERACILLIN/TAZOBACTAM SOD 3.375 GM in D5W MINI-BAG PLUS 50 ML IV SCH ×3 (05:42→17:21)
--- NOTE | 2018-09-20 05:56 | ECGEPIP ---
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
[2018-09-20 06:31] LABS: HEMATOCRIT 32.3 % (42.0-52.0); HEMOGLOBIN 10.2 g/dl (13.5-17.5); MEAN CORPUSCULAR HEMOGLOBIN 27.3 pg (27.0-33.0); MEAN CORPUSCULAR HGB CONC 31.6 g/dl (32.0-36.5); MEAN CORPUSCULAR VOLUME 86.4 fl (80.0-96.0); PLATELET COUNT, AUTOMATED 393 10^3/uL (150-450); RED BLOOD COUNT 3.74 10^6/uL (4.30-6.10); WHITE BLOOD COUNT 10.8 10^3/uL (4.0-10.0)
--- NOTE | 2018-09-20 06:37 | ECHO ---
DATE OF STUDY: 09/19/2018 REFERRING PHYSICIAN: Dr. Micky Newman INDICATION: Localized edema. HEIGHT: 183 cm. WEIGHT: 71 kg. 2-D MEASUREMENTS: Aortic root: 3.5 cm Left atrium: 3.6 cm Ventricular septum: 0.94 cm Posterior wall: 0.89 cm Left ventricle diastole: 4.8 cm Aortic annulus: 2.4 cm Inferior vena cava: 2.2 cm with more than 50% respiratory variation DOPPLER MEASUREMENTS: Very mild aortic regurgitation, no aortic stenosis Aortic valve velocity: 159 cm/sec LVOT velocity: 72.4 cm/sec Mitral E velocity: 60.6 cm/sec Mitral A velocity: 80.5 cm/sec Mitral deceleration time: 306 ms Estimated right ventricular systolic pressure 36-41 mmHg assuming a right atrial pressure of 5-10 mmHg MITRAL ANNULAR TISSUE DOPPLER: E prime septal: 10.1 cm/sec E prime lateral: 12.0 cm/sec DESCRIPTION: The rhythm was sinus. This was a moderately technically difficult echocardiogram. No pericardial effusion. This was a 2-D, M-mode, color flow Doppler and pulse wave Doppler examination and included mitral annular tissue Doppler. CONCLUSIONS: 1. Suggestive of mild-moderate elevation of estimated right ventricle systolic pressure (36-41 mmHg). Normal right ventricle size and systolic function. Mild tricuspid regurgitation. Mildly dilated inferior vena cava. Central venous pressure estimated to be 10 mmHg. 2. Normal left ventricle internal dimensions and wall thickness. Normal regional LV wall motion and wall thickening. Normal LV systolic function. LVEF 60% by visual estimate. Normal LV diastolic function for age. Normal left atrial size. 3. Moderate focal thickening and focal calcific deposits of a 3-cuspid aortic valve. No aortic stenosis. Very mild aortic regurgitation. 4. Mild mitral annular calcification. No mitral regurgitation. 5. No pericardial effusion.
[2018-09-20 06:52] LABS: ALBUMIN 1.6 GM/DL (3.2-5.2); ALT/SGPT 21 U/L (12-78); BILIRUBIN,TOTAL 0.5 MG/DL (0.2-1.0); BLOOD UREA NITROGEN 18 MG/DL (7-18); CALCIUM LEVEL 9.3 MG/DL (8.8-10.2); CARBON DIOXIDE LEVEL 29 MEQ/L (21-32); CHLORIDE LEVEL 108 MEQ/L (98-107); CREATININE FOR GFR 0.72 MG/DL (0.70-1.30); GLOMERULAR FILTRATION RATE > 60.0 (>35); GLUCOSE, FASTING 77 MG/DL (70-100); MAGNESIUM LEVEL 1.2 MG/DL (1.8-2.4); POTASSIUM SERUM 3.6 MEQ/L (3.5-5.1); SODIUM LEVEL 143 MEQ/L (136-145)
[2018-09-20] MEDS: IPRATROPIUM 0.5MG/ALBUTEROL 2.5MG INH SOL UD 3ML (DUONEB)(J7620) INH SCH ×4 (08:00→20:00)
[2018-09-20] MEDS: ADVAIR HFA 115/21MCG INHALER INH SCH ×2 (08:03→20:04)
[2018-09-20] MEDS: OMEPRAZOLE 20 MG CAP PO SCH (09:00)
[2018-09-20] MEDS: MAG SULF 1GM/100ML (MAG RUN) 1 GM in APPROPRIATE DILUENT 1 EA IV SCH ×3 (10:00→11:00)
[2018-09-20] MEDS: hydroCHLOROthiazide 12.5 MG CAPSULE PO SCH (10:03)
[2018-09-20] MEDS: LACTOBACILLUS ACIDOPHILUS CAP (BACID) PO SCH (10:03)
[2018-09-20] MEDS: VALSARTAN 80 MG TAB (DIOVAN) PO SCH (10:04)
[2018-09-20] MEDS: guaiFENesin ER 600 MG TAB PO SCH ×2 (10:04→20:14)
[2018-09-20] MEDS: VITAMIN D 1,000 INTERNATIONAL UNITS TABLET PO SCH (10:05)
[2018-09-20] MEDS: PARoxetine 20 MG TAB PO SCH (10:05)
[2018-09-20] MEDS: AMITRIPTYLINE 10 MG TAB PO SCH ×2 (10:05→20:15)
[2018-09-20] MEDS: ATENOLOL 50 MG TAB PO SCH (10:05)
[2018-09-20] MEDS: OMEGA-3 1000MG CAPSULE PO SCH ×2 (10:06→20:14)
--- NOTE | 2018-09-20 11:03 | NUR ---
Pt seen throughout breakfast meal with upgrade trials. Cough noted prior to and throughout meal. Unlikely d/t aspiration/penetration. Recommend: upgrade solids to mechanical soft (level 3). Provide reminders to take small bites and chew thoroughly. Frequent checks throughout meals. Addendum: 09/20/18 at 1105 by ELYSE SANCHEZ [facility] Amended: Links added.
[2018-09-20 11:52] VITALS: BP 129/62
[2018-09-20 11:53] VITALS: BP 129/62
[2018-09-20 14:00] VITALS: BP 120/60
--- NOTE | 2018-09-20 14:43 | IPNPDOC ---
Subjective Date Seen The patient was seen on 09/20/18. Subjective Chief Complaint/HPI Shortness of breath, cough, wheezing, generalized weakness Events since last encounter The patient reports her shortness of breath seems improved. He was able to ambulate with physical therapy with walker. Still has cough with sputum production. The sputum looks creamish/light greenish. No associated chest pain. Denies overnight fevers/chills or sweats. No nausea or vomiting. Tolerating oral intake. Denies abdominal pain. No problems of bladder/bowel habits. The patient was seen by speech language pathologist earlier and passed swallow eval -he has been ordered a mechanical soft diet Objective Physical Examination General Exam: Positive: Alert, Cooperative, No Acute Distress, Other (sitting up in chair) Eye Exam: Positive: PERRLA ENT Exam: Positive: Mucous membr. moist/pink Chest Exam: Positive: Other (bibasilar crackles right greater than left. No overt wheezing or distress) Heart Exam: Positive: Rate Normal, Regular Rhythm, Normal S1, Normal S2; Negative: Gallops, Rubs Abdomen Exam: Positive: Soft; Negative: Tenderness Extremity Exam: Positive: Edema, Other (1+ edema over bilateral lower extremities) Neuro Exam: Positive: Other (awake, alert, oriented 3, answering portions appropriately and moving all 4 extremities) Psych Exam: Positive: Other (appropriate mood and affect) Assessment /Plan Assessment Bilateral lower lobe pneumonia right greater than left, community-acquired, present on admission, in setting of stage III lung cancer: -CT chest showed bibasilar consolidations right greater than left in addition to the lung cancer findings -Continue IV Zosyn D2 -Mechanical soft diet per OCCUPATIONAL THERAPY INSTRUCTOR evaluation -Incentive spirometry, Mucinex, duo nebs, supplemental oxygen as needed -Outpatient follow-up with Dr. Trotter per previous appointment on discharge for the lung cancer -Wean oxygen as toleratedcurrently still requiring supplemental oxygen Hypertension: -Continue atenolol, losartan, HCTZ with holding parameters. Hypoxia: -Likely secondary to pneumonia -Supplemental oxygen as needed -Additional management as noted above Elevated BNP with 1+ lower extremity edema: -Patient reports having an echo cardiac exam within the last 1 year -At this time, clinically, no overt evidence of CHF -May be followed up as an outpatient upon discharge 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 with primary anastomosis: -Tolerating oral intake well Generalized weakness: -Continue PT/OT - home services on discharge GERD: -PPI Hyperlipidemia: -Continue fish oil DVT prophylaxis: -Enoxaparin Disposition: Anticipate possible discharge over the next 24-48 hours if patient continues to improve clinically Plan/VTE VTE Prophylaxis Ordered?: Yes VS, I&O, 24H, Fishbone Vital Signs/I&O Vital Signs Date Time Temp Pulse Resp B/P (MAP) Pulse Ox O2 Delivery O2 Flow Rate FiO2 09/20/18 14:00 97.1 66 20 120/60 (80) 83 3.0 09/19/18 15:24 Nasal Cannula I&O- Last 24 Hours up to 6 AM 09/20/18 06:00 Intake Total 50 ml Output Total 200 ml Balance -150 ml Laboratory Data 24H LABS Laboratory Tests 2 09/20/18 05:47: Nucleated Red Blood Cells % (auto) 0.0, Anion Gap 6L, Glomerular Filtration Rate > 60.0, Blood Urea Nitrogen 18, Creatinine 0.72, Sodium Level 143, Potassium Le johanna 3.6, Chloride Level 108H, Carbon Dioxide Level 29, Calcium Level 9.3, Aspartate Amino Transf (AST/SGOT) 22, Alanine Aminotransferase (ALT/SGPT) 21, Alkaline Phosphatase 98, Total Bilirubin 0.5, Total Protein 6.0L, Albumin 1.6L, Magnesium Level 1.2L, Albumin/Globulin Ratio 0.36L CBC/BMP Laboratory Tests 09/20/18 05:47 Red Blood Count 3.74 L, Mean Corpuscular Volume 86.4, Mean Corpuscular Hemoglobin 27.3, Mean Corpuscular Hemoglobin Concent 31.6 L, Red Cell Distribution Width 15.3 H, Calcium Level 9.3, Aspartate Amino Transf (AST/SGOT) 22, Alanine Aminotransferase (ALT/SGPT) 21, Alkaline Phosphatase 98, Total Bilirubin 0.5, Total Protein 6.0 L, Albumin 1.6 L Microbiology Microbiology 09/19/18 Blood Culture - Preliminary, Resulted No growth after 24 hours . All specim... 09/19/18 Blood Culture - Preliminary, Resulted No growth after 24 hours . All specim... 09/20/18 Gram Stain, Received Pending 09/20/18 Sputum Culture, Received Pending YOLY GUAJARDO MD September 20, 2018 14:43
[2018-09-20] MEDS: TAMSULOSIN 0.4 MG CAP PO SCH (20:14)
[2018-09-20] MEDS: ENOXAPARIN 40 MG/0.4 ML SYRINGE (J1650) SC SCH (20:15)
[2018-09-20 22:00] VITALS: BP 109/59
[2018-09-21] MEDS: PIPERACILLIN/TAZOBACTAM SOD 3.375 GM in D5W MINI-BAG PLUS 50 ML IV SCH ×4 (00:41→18:16)
[2018-09-21 06:00] VITALS: BP 113/53
[2018-09-21 06:10] LABS: BASO % 0.2 % (0.0-1.0); EOS # 0.2 10^3/uL (0.0-0.50); EOS % 1.9 % (0.0-3.0); HEMATOCRIT 28.5 % (42.0-52.0); HEMOGLOBIN 9.1 g/dl (13.5-17.5); LYMPH # 1.3 10^3/uL (1.5-4.5); MEAN CORPUSCULAR HEMOGLOBIN 26.9 pg (27.0-33.0); MEAN CORPUSCULAR HGB CONC 31.9 g/dl (32.0-36.5); MEAN CORPUSCULAR VOLUME 84.3 fl (80.0-96.0); MONO # 0.7 10^3/uL (0.0-0.8); NEUTROPHILS # 7.6 10^3/uL (1.8-7.7); NEUTROPHILS % 77.5 % (36.0-66.0); PLATELET COUNT, AUTOMATED 375 10^3/uL (150-450); RED BLOOD COUNT 3.38 10^6/uL (4.30-6.10); WHITE BLOOD COUNT 9.8 10^3/uL (4.0-10.0)
[2018-09-21 06:15] LABS: BLOOD UREA NITROGEN 18 MG/DL (7-18); CALCIUM LEVEL 8.6 MG/DL (8.8-10.2); CARBON DIOXIDE LEVEL 29 MEQ/L (21-32); CHLORIDE LEVEL 104 MEQ/L (98-107); CREATININE FOR GFR 0.83 MG/DL (0.70-1.30); GLOMERULAR FILTRATION RATE > 60.0 (>35); GLUCOSE, FASTING 98 MG/DL (70-100); PHOSPHORUS LEVEL 2.9 MG/DL (2.5-4.9); POTASSIUM SERUM 3.1 MEQ/L (3.5-5.1); SODIUM LEVEL 140 MEQ/L (136-145)
[2018-09-21] MEDS: ADVAIR HFA 115/21MCG INHALER INH SCH ×2 (07:30→20:47)
[2018-09-21] MEDS: IPRATROPIUM 0.5MG/ALBUTEROL 2.5MG INH SOL UD 3ML (DUONEB)(J7620) INH SCH ×4 (07:30→20:00)
[2018-09-21] MEDS: hydroCHLOROthiazide 12.5 MG CAPSULE PO SCH (10:03)
[2018-09-21] MEDS: guaiFENesin ER 600 MG TAB PO SCH ×2 (10:03→21:30)
[2018-09-21] MEDS: AMITRIPTYLINE 10 MG TAB PO SCH ×2 (10:04→21:30)
[2018-09-21] MEDS: POTASSIUM CHLORIDE 10 MEQ SR TABLET PO SCH ×2 (10:04→12:52)
[2018-09-21] MEDS: VALSARTAN 80 MG TAB (DIOVAN) PO SCH (10:04)
[2018-09-21] MEDS: LACTOBACILLUS ACIDOPHILUS CAP (BACID) PO SCH (10:05)
[2018-09-21] MEDS: OMEGA-3 1000MG CAPSULE PO SCH ×2 (10:05→21:30)
[2018-09-21] MEDS: VITAMIN D 1,000 INTERNATIONAL UNITS TABLET PO SCH (10:05)
[2018-09-21] MEDS: PARoxetine 20 MG TAB PO SCH (10:05)
[2018-09-21] MEDS: ATENOLOL 50 MG TAB PO SCH (10:05)
[2018-09-21] MEDS: OMEPRAZOLE 20 MG CAP PO SCH (10:06)
[2018-09-21 14:00] VITALS: BP 94/49
--- NOTE | 2018-09-21 16:13 | IPNPDOC ---
Subjective Date Seen The patient was seen on 09/21/18. Subjective Chief Complaint/HPI Shortness of breath, cough, wheezing, generalized weakness Events since last encounter The patient reports his cough seems a little worse today compared to yesterday. Still has some shortness of breath but better than when he first came in. Denies any associated chest pain. No nausea or vomiting. Tolerating oral intake. Denies abdominal pain. No problems with bladder/bowel habits. Objective Physical Examination General Exam: Positive: Alert, Cooperative, No Acute Distress, Other (sitting up in chair eating breakfast when I saw him this morning) Eye Exam: Positive: PERRLA ENT Exam: Positive: Mucous membr. moist/pink Chest Exam: Positive: Other (diminished air entry at lung bases with some adventitious sounds related to secretions particularly in right lower lobe. No wheezing, no distress) Heart Exam: Positive: Rate Normal, Regular Rhythm, Normal S1, Normal S2; Negative: Gallops, Rubs Abdomen Exam: Positive: Soft; Negative: Tenderness Extremity Exam: Positive: Edema, Other (1+ edema over bilateral lower extremities - unchanged) Neuro Exam: Positive: Other (awake, alert, oriented 3, answering questions a ppropriately ) Psych Exam: Positive: Other (appropriate mood and affect) Assessment /Plan Assessment Bilateral lower lobe pneumonia right greater than left, community-acquired, present on admission, in setting of stage III lung cancer: -CT chest showed bibasilar consolidations right greater than left in addition to the lung cancer findings -Continue IV Zosyn D3 - sputum cultures pending. Blood cultures no growth at 48 hours. -Mechanical soft diet per FRICKERTRON CHECKER evaluation -Requested incentive spirometry, acapella. Ct Mucinex, duo nebs, supplemental oxygen as needed -Outpatient follow-up with Dr. Trotter per previous appointment on discharge for the lung cancer -Wean oxygen as toleratedcurrently still requiring supplemental oxygen 3 L/min by MD Hypertension: -Continue atenolol, losartan, HCTZ with holding parameters. Hypoxia: -Likely secondary to pneumonia -Supplemental oxygen as needed - wean as tolerated Elevated BNP with 1+ lower extremity edema: -Patient reports having an echo cardiac exam within the last 1 year -At this time, clinically, no overt evidence of CHF -May be followed up as an outpatient upon discharge 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 with primary anastomosis: -Tolerating oral intake well Generalized weakness: -Continue PT/OT - recommended home services on discharge GERD: -PPI Hyperlipidemia: -Continue fish oil DVT prophylaxis: -Enoxaparin Disposition: Patient reports some worsening cough/shortness of breath today. Continue management as noted above. Anticipate possible discharge over the next 24-48 hours if patient improves clinically Plan/VTE VTE Prophylaxis Ordered?: Yes VS, I&O, 24H, Fishbone Vital Signs/I&O Vital Signs Date Time Temp Pulse Resp B/P (MAP) Pulse Ox O2 Delivery O2 Flow Rate FiO2 09/21/18 10:05 79 113/53 09/21/18 09:00 3.0 09/21/18 06:00 97.0 18 90 09/19/18 15:24 Nasal Cannula I&O- Last 24 Hours up to 6 AM 09/21/18 06:00 Intake Total 1060 ml Output Total 0 ml Balance 1060 ml Laboratory Data 24H LABS Laboratory Tests 2 09/21/18 05:30: Immature Granulocyte % (Auto) 0.4, White Blood Count 9.8, Red Blood Count 3.38L, Hemoglobin 9.1L, Hematocrit 28.5L, Mean Corpuscular Volume 84.3, Mean Corpuscular Hemoglobin 26.9L, Mean Corpuscular Hemoglobin Concent 31.9L, Red Cell Distribution Width 15.3H, Platelet Count 375, Neutrophils (%) (Auto) 77.5H, Lymphocytes (%) (Auto) 13.0L, Monocytes (%) (Auto) 7.0H, Eosinophils (%) (Auto) 1.9, Basophils (%) (Auto) 0.2, Neutrophils # (Auto) 7.6, Lymphocytes # (Auto) 1.3L, Monocytes # (Auto) 0.7, Eosinophils # (Auto) 0.2, Basophils # (Auto) 0.0, Nucleated Red Blood Cells % (auto) 0.0, Anion Gap 7L, Glomerular Filtration Rate > 60.0, Blood Urea Nitrogen 18, Creatinine 0.83, Sodium Level 140, Potassium Level 3.1L, Chloride Level 104, Carbon Dioxide Level 29, Calcium Level 8.6L, Phosphorus Level 2.9, Magnesium Level 2.0 CBC/BMP Laboratory Tests 09/21/18 05:30 Red Blood Count 3.38 L, Mean Corpuscular Volume 84.3, Mean Corpuscular Hemoglobin 26.9 L, Mean Corpuscular Hemoglobin Concent 31.9 L, Red Cell Distribution Width 15.3 H, Neutrophils (%) (Auto) 77.5 H, Lymphocytes (%) (Auto) 13.0 L, Monocytes (%) (Auto) 7.0 H, Eosinophils (%) (Auto) 1.9, Basophils (%) (Auto) 0.2, Neutrophils # (Auto) 7.6, Lymphocytes # (Auto) 1.3 L, Monocytes # (Auto) 0.7, Eosinophils # (Auto) 0.2, Basophils # (Auto) 0.0, Calcium Level 8.6 L Microbiology Microbiology 09/19/18 Blood Culture - Preliminary, Resulted No Growth after 48 hours. All Specime... 09/19/18 Blood Culture - Preliminary, Resulted No Growth after 48 hours. All Specime... 09/20/18 Gram Stain - Final, Resulted 09/20/18 Sputum Culture, Resulted Pending YOLY GUAJARDO MD Sep 21, 2018 16:12
[2018-09-21] MEDS: TAMSULOSIN 0.4 MG CAP PO SCH (21:30)
[2018-09-21] MEDS: ENOXAPARIN 40 MG/0.4 ML SYRINGE (J1650) SC SCH (21:32)
[2018-09-21 22:00] VITALS: BP 111/57
[2018-09-22] MEDS: PIPERACILLIN/TAZOBACTAM SOD 3.375 GM in D5W MINI-BAG PLUS 50 ML IV SCH ×4 (00:53→17:46)
[2018-09-22 06:00] VITALS: BP 117/64
[2018-09-22 06:11] LABS: BASO % 0.2 % (0.0-1.0); EOS # 0.2 10^3/uL (0.0-0.50); EOS % 2.4 % (0.0-3.0); HEMATOCRIT 31.4 % (42.0-52.0); LYMPH # 1.5 10^3/uL (1.5-4.5); LYMPH % 17.5 % (24.0-44.0); MEAN CORPUSCULAR HEMOGLOBIN 27.8 pg (27.0-33.0); MEAN CORPUSCULAR HGB CONC 31.8 g/dl (32.0-36.5); MEAN CORPUSCULAR VOLUME 87.2 fl (80.0-96.0); MONO # 0.7 10^3/uL (0.0-0.8); MONO % 8.1 % (0.0-5.0); NEUTROPHILS # 6.3 10^3/uL (1.8-7.7); NEUTROPHILS % 71.3 % (36.0-66.0); PLATELET COUNT, AUTOMATED 381 10^3/uL (150-450); WHITE BLOOD COUNT 8.8 10^3/uL (4.0-10.0)
[2018-09-22 06:40] LABS: BLOOD UREA NITROGEN 15 MG/DL (7-18); CALCIUM LEVEL 8.5 MG/DL (8.8-10.2); CARBON DIOXIDE LEVEL 29 MEQ/L (21-32); CHLORIDE LEVEL 107 MEQ/L (98-107); CREATININE FOR GFR 0.72 MG/DL (0.70-1.30); GLOMERULAR FILTRATION RATE > 60.0 (>35); GLUCOSE, FASTING 79 MG/DL (70-100); MAGNESIUM LEVEL 1.8 MG/DL (1.8-2.4); POTASSIUM SERUM 4.5 MEQ/L (3.5-5.1); SODIUM LEVEL 141 MEQ/L (136-145)
[2018-09-22] MEDS: ADVAIR HFA 115/21MCG INHALER INH SCH ×2 (07:23→19:59)
[2018-09-22] MEDS: IPRATROPIUM 0.5MG/ALBUTEROL 2.5MG INH SOL UD 3ML (DUONEB)(J7620) INH SCH ×4 (07:23→19:59)
[2018-09-22] MEDS: hydroCHLOROthiazide 12.5 MG CAPSULE PO SCH (08:33)
[2018-09-22] MEDS: LACTOBACILLUS ACIDOPHILUS CAP (BACID) PO SCH (08:33)
[2018-09-22] MEDS: VITAMIN D 1,000 INTERNATIONAL UNITS TABLET PO SCH (08:33)
[2018-09-22] MEDS: ATENOLOL 50 MG TAB PO SCH (08:34)
[2018-09-22] MEDS: AMITRIPTYLINE 10 MG TAB PO SCH ×2 (08:34→21:03)
[2018-09-22] MEDS: guaiFENesin ER 600 MG TAB PO SCH ×2 (08:34→21:03)
[2018-09-22] MEDS: OMEGA-3 1000MG CAPSULE PO SCH ×2 (08:34→21:02)
[2018-09-22] MEDS: OMEPRAZOLE 20 MG CAP PO SCH (08:34)
[2018-09-22] MEDS: VALSARTAN 80 MG TAB (DIOVAN) PO SCH (08:34)
[2018-09-22] MEDS: PARoxetine 20 MG TAB PO SCH (08:35)
[2018-09-22 14:00] VITALS: BP 123/65
--- NOTE | 2018-09-22 16:06 | IPNPDOC ---
Subjective Date Seen The patient was seen on 09/22/18. Subjective Chief Complaint/HPI Shortness of breath, cough, wheezing, generalized weakness. The patient is a 87-year-old gentleman who presented to the ER with complaints of increasing shortness of breath, cough as well as wheezing worsening over the last couple of weeks. 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 He reported productive cough, chills and weakness. Events since last encounter The patient reports her shortness of breath seems improved from yesterday. Still having coughhas been working on the incentive spirometer and flutter valve. Denies any nausea or vomiting. Tolerating oral intake. Denies abdominal pain. Urinating okay and having bowel movements okay. Objective Physical Examination General Exam: Positive: Alert, Cooperative, No Acute Distress, Other (sitting propped up in bed.) Eye Exam: Positive: PERRLA ENT Exam: Positive: Mucous membr. moist/pink Chest Exam: Positive: Other (diminished air entry at bilateral lung bases, slight crackles, no wheeze, no distress) Heart Exam: Positive: Rate Normal, Regular Rhythm, Normal S1, Normal S2; Negative: Gallops, Rubs Abdomen Exam: Positive: Soft; Negative: Tenderness Extremity Exam: Positive: Edema (1+ edema over bilateral lower extremities) Neuro Exam: Positive: Other (awake, alert, oriented 3, answering questions appropriately ) Psych Exam: Positive: Mental status NL, Mood NL Assessment /Plan Assessment Bilateral lower lobe pneumonia right greater than left, community-acquired, present on admission, in setting of stage III lung cancer: -CT chest showed bibasilar consolidations right greater than left in addition to the lung cancer findings -Continue IV Zosyn D4 - Gram stain shows moderate gram-positive cocci in pairs and chains, sputum cultures pending. Blood cultures no growth at 72 hours. -Mechanical soft diet per [employer] evaluation -Encouraged incentive spirometry, acapella - demonstrated patient today regarding correct use of both. Ct Mucinex, duo nebs, supplemental oxygen as needed -Outpatient follow-up with Dr. Trotter per previous appointment on discharge for the lung cancer -Wean oxygen as toleratedcurrently still requiring supplemental oxygen 3 L/min by NC -Suspect patient will require home oxygen on dischargehome oxygen evaluation requested for tomorrow morning. Hypertension: -Continue atenolol, losartan, HCTZ with holding parameters. 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 Patient is still requiring 3 L/min oxygen by nasal cannulahome oxygen evaluation requested for tomorrow morning. I suspect patient will require home oxygen on discharge. He has been recommended home services on discharge by PT. Plan/VTE VTE Prophylaxis Ordered?: Yes VS, I&O, 24H, Fishbone Vital Signs/I&O Vital Signs Date Time Temp Pulse Resp B/P (MAP) Pulse Ox O2 Delivery O2 Flow Rate FiO2 09/22/18 14:00 97.2 63 20 123/65 (84) 96 3.0 09/19/18 15:24 Nasal Cannula I&O- Last 24 Hours up to 6 AM 09/22/18 06:00 Intake Total 1560 ml Output Total 525 ml Balance 1035 ml Laboratory Data 24H LABS Laboratory Tests 2 09/22/18 05:21: Immature Granulocyte % (Auto) 0.5, White Blood Count 8.8, Red Blood Count 3.60L, Hemoglobin 10.0L, Hematocrit 31.4L, Mean Corpuscular Volume 87.2, Mean Corpu scular Hemoglobin 27.8, Mean Corpuscular Hemoglobin Concent 31.8L, Red Cell Distribution Width 15.4H, Platelet Count 381, Neutrophils (%) (Auto) 71.3H, Lymphocytes (%) (Auto) 17.5L, Monocytes (%) (Auto) 8.1H, Eosinophils (%) (Auto) 2.4, Basophils (%) (Auto) 0.2, Neutrophils # (Auto) 6.3, Lymphocytes # (Auto) 1.5, Monocytes # (Auto) 0.7, Eosinophils # (Auto) 0.2, Basophils # (Auto) 0.0, Nucleated Red Blood Cells % (auto) 0.0, Anion Gap 5L, Glomerular Filtration Rate > 60.0, Blood Urea Nitrogen 15, Creatinine 0.72, Sodium Level 141, Potassium Level 4.5#, Chloride Level 107, Carbon Dioxide Level 29, Calcium Level 8.5L, Phosphorus Level 3.0, Magnesium Level 1.8 CBC/BMP Laboratory Tests 09/22/18 05:21 Red Blood Count 3.60 L, Mean Corpuscular Volume 87.2, Mean Corpuscular He moglobin 27.8, Mean Corpuscular Hemoglobin Concent 31.8 L, Red Cell Distribution Width 15.4 H, Neutrophils (%) (Auto) 71.3 H, Lymphocytes (%) (Auto) 17.5 L, Monocytes (%) (Auto) 8.1 H, Eosinophils (%) (Auto) 2.4, Basophils (%) (Auto) 0.2, Neutrophils # (Auto) 6.3, Lymphocytes # (Auto) 1.5, Monocytes # (Auto) 0.7, Eosinophils # (Auto) 0.2, Basophils # (Auto) 0.0, Calcium Level 8.5 L Microbiology Microbiology 09/19/18 Blood Culture - Preliminary, Resulted No Growth after 72 hours. All specime... 09/19/18 Blood Culture - Preliminary, Resulted No Growth after 72 hours. All specime... 09/20/18 Gram Stain - Final, Resulted 09/20/18 Sputum Culture, Resulted Pending YOLY GUAJARDO MD Sep 22, 2018 16:06
[2018-09-22] MEDS: TAMSULOSIN 0.4 MG CAP PO SCH (21:03)
[2018-09-22] MEDS: ENOXAPARIN 40 MG/0.4 ML SYRINGE (J1650) SC SCH (21:09)
[2018-09-22 22:00] VITALS: BP 132/72
[2018-09-23] MEDS: PIPERACILLIN/TAZOBACTAM SOD 3.375 GM in D5W MINI-BAG PLUS 50 ML IV SCH ×4 (00:57→17:47)
[2018-09-23 06:00] VITALS: BP 124/60
[2018-09-23 06:39] LABS: BASO % 0.4 % (0.0-1.0); EOS # 0.2 10^3/uL (0.0-0.50); EOS % 2.5 % (0.0-3.0); HEMATOCRIT 31.2 % (42.0-52.0); HEMOGLOBIN 9.8 g/dl (13.5-17.5); LYMPH # 1.5 10^3/uL (1.5-4.5); LYMPH % 19.5 % (24.0-44.0); MEAN CORPUSCULAR HEMOGLOBIN 26.5 pg (27.0-33.0); MEAN CORPUSCULAR HGB CONC 31.4 g/dl (32.0-36.5); MEAN CORPUSCULAR VOLUME 84.3 fl (80.0-96.0); MONO # 0.6 10^3/uL (0.0-0.8); MONO % 8.2 % (0.0-5.0); NEUTROPHILS # 5.2 10^3/uL (1.8-7.7); PLATELET COUNT, AUTOMATED 379 10^3/uL (150-450); WHITE BLOOD COUNT 7.6 10^3/uL (4.0-10.0)
[2018-09-23 06:58] LABS: BLOOD UREA NITROGEN 12 MG/DL (7-18); CALCIUM LEVEL 9.3 MG/DL (8.8-10.2); CARBON DIOXIDE LEVEL 29 MEQ/L (21-32); CHLORIDE LEVEL 104 MEQ/L (98-107); CREATININE FOR GFR 0.88 MG/DL (0.70-1.30); GLOMERULAR FILTRATION RATE > 60.0 (>35); GLUCOSE, FASTING 78 MG/DL (70-100); MAGNESIUM LEVEL 1.8 MG/DL (1.8-2.4); PHOSPHORUS LEVEL 3.5 MG/DL (2.5-4.9); SODIUM LEVEL 139 MEQ/L (136-145)
[2018-09-23] MEDS: IPRATROPIUM 0.5MG/ALBUTEROL 2.5MG INH SOL UD 3ML (DUONEB)(J7620) INH SCH ×4 (07:36→19:59)
[2018-09-23] MEDS: ADVAIR HFA 115/21MCG INHALER INH SCH ×2 (07:37→19:59)
[2018-09-23] MEDS: AMITRIPTYLINE 10 MG TAB PO SCH ×2 (09:39→22:03)
[2018-09-23] MEDS: guaiFENesin ER 600 MG TAB PO SCH ×2 (09:39→22:04)
[2018-09-23] MEDS: hydroCHLOROthiazide 12.5 MG CAPSULE PO SCH (09:39)
[2018-09-23] MEDS: OMEPRAZOLE 20 MG CAP PO SCH (09:39)
[2018-09-23] MEDS: LACTOBACILLUS ACIDOPHILUS CAP (BACID) PO SCH (09:39)
[2018-09-23] MEDS: VITAMIN D 1,000 INTERNATIONAL UNITS TABLET PO SCH (09:39)
[2018-09-23] MEDS: PARoxetine 20 MG TAB PO SCH (09:44)
[2018-09-23] MEDS: OMEGA-3 1000MG CAPSULE PO SCH ×2 (09:47→22:04)
[2018-09-23] MEDS: VALSARTAN 80 MG TAB (DIOVAN) PO SCH (09:52)
[2018-09-23] MEDS: ATENOLOL 50 MG TAB PO SCH (09:52)
[2018-09-23 14:00] VITALS: BP 114/58
--- NOTE | 2018-09-23 14:54 | IPNPDOC ---
Text Note Date of Service The patient was seen on 09/23/18. NOTE Subjective: Patient is in an 87-year-old male with a past medical history of colon cancer involving splenic fracture status post resection of distal transverse and proximal descending colon with primary anastomosis, stage III lung cancer, dyslipidemia, hypertension, arthritis, anxiety, nocturnal hypoxia, GERD who presented to the emergency room with complaints of cough and shortness of breath. Patient had a recent surgery for resection of his colon cancer and was discharged on 08/20/18. In the emergency room, patient was suspected of having a developing pneumonia and was admitted to the hospitalist service for further evaluation and treatment. Patient was seen and examined at the bedside. Currently, patient reports that his breathing is doing better. Denies any significant chest pain, palpitations or productive cough. Denies any nausea, vomiting, abdominal pain, constipation or diarrhea. Denies any urinary discomfort Objective: Vitals (See below) General: Lying in bed, no acute distress, comfortable, awake and alert HEENT: NC, AT CVS: RRR, +S1S2 Lungs: Fair air entry b/l, -w/r/r Abdomen: Soft, ND, NT Extremities: - Edema, - Calf tenderness Assessment and plan: Bilateral lower lobe pneumonia right greater than left, community-acquired, present on admission, in setting of stage III lung cancer: - Clinically patient does not report any significant shortness of breath or productive cough - Physical is nonrevealing - Leukocytosis has resolved; no significant lactic acidosis - Cultures negative - Chest CT 09/19: 1. Right lower lobe lesion is stable in size but now demonstrates small cavitary component. 2. Extensive mediastinal and hilar adenopathy similar to prior examination. 3. Superimposed dense lower lobe consolidations and scattered "tree in bud infiltrates." 4. Significant gastric wall thickening. - Continue with incentive spirometry, acapella and Guaifenesin - Continue with Zosyn (Day #5) Hypoxia - possibly 2/2 pneumonia - Continue with supplemental oxygen; will titrate down as oxygenation improves Confusion - likely 2/2 in hospital delirium - Patient also reported some suicidal ideation - At this point, we will place the bedside sitter and suicide precautions - Will consider physiatric consultation in next 24 hours Elevated BNP - Currently, patient does not display any signs of significant fluid overload - ECHO 09/19/2018: Mild to moderate elevation of RVSP, mild TR, mild dilated IVC CVP estimated at 10, normal LVEF, normal diastolic function for age Hypertension: - Blood pressure appears well controlled -Continue atenolol, losartan, HCTZ with holding parameters. Adenocarcinoma involving splenic flexure status post resection of distal mckeon sverse and proximal descending colon with primary anastomosis: -Has been on a mechanical soft diet. Has not experienced any issues Generalized weakness: -We'll continue with physical therapy; will likely are services upon discharge DLP -Continue fish oil GERD - c/w omeprazole DVT prophylaxis - c/w Lovenox Disposition: - Will need psychiatry evaluation - Will titrate down supplemental oxygen VS,Fishbone, I+O VS, Fishbone, I+O Laboratory Tests 09/23/18 06:00 Red Blood Count 3.70 L, Mean Corpuscular Volume 84.3, Mean Corpuscular Hemoglobin 26.5 L, Mean Corpuscular Hemoglobin Concent 31.4 L, Red Cell Distribution Width 15.7 H, Neutrophils (%) (Auto) 69.0 H, Lymphocytes (%) (Auto) 19.5 L, Monocytes (%) (Auto) 8.2 H, Eosinophils (%) (Auto) 2.5, Basophils (%) (Auto) 0.4, Neutrophils # (Auto) 5.2, Lymphocytes # (Auto) 1.5, Monocytes # (Auto) 0.6, Eosinophils # (Auto) 0.2, Basophils # (Auto) 0.0, Calcium Level 9.3 Vital Signs Date Time Temp Pulse Resp B/P (MAP) Pulse Ox O2 Delivery O2 Flow Rate FiO2 09/23/18 09:52 114/76 09/23/18 09:52 96 09/23/18 06:00 97.3 20 93 3.0 09/19/18 15:24 Nasal Cannula I&O- Last 24 Hours up to 6 AM 09/23/18 06:00 Intake Total 1350 ml Output Total 300 ml Balance 1050 ml JAMES JOSE MD Sep 23, 2018 14:54
[2018-09-23 20:00] VITALS: BP 110/62
[2018-09-23] MEDS: TAMSULOSIN 0.4 MG CAP PO SCH (22:04)
[2018-09-23] MEDS: ENOXAPARIN 40 MG/0.4 ML SYRINGE (J1650) SC SCH (22:04)
[2018-09-24] MEDS: PIPERACILLIN/TAZOBACTAM SOD 3.375 GM in D5W MINI-BAG PLUS 50 ML IV SCH ×4 (00:01→17:56)
[2018-09-24 06:00] VITALS: BP 130/63
[2018-09-24] MEDS: IPRATROPIUM 0.5MG/ALBUTEROL 2.5MG INH SOL UD 3ML (DUONEB)(J7620) INH SCH ×4 (07:20→20:00)
[2018-09-24] MEDS: ADVAIR HFA 115/21MCG INHALER INH SCH ×2 (07:22→21:00)
[2018-09-24 08:23] LABS: BASO % 0.4 % (0.0-1.0); EOS # 0.3 10^3/uL (0.0-0.50); EOS % 3.4 % (0.0-3.0); HEMATOCRIT 32.6 % (42.0-52.0); HEMOGLOBIN 10.4 g/dl (13.5-17.5); LYMPH # 1.7 10^3/uL (1.5-4.5); LYMPH % 18.2 % (24.0-44.0); MEAN CORPUSCULAR HEMOGLOBIN 27.8 pg (27.0-33.0); MEAN CORPUSCULAR HGB CONC 31.9 g/dl (32.0-36.5); MEAN CORPUSCULAR VOLUME 87.2 fl (80.0-96.0); MONO # 0.7 10^3/uL (0.0-0.8); MONO % 8.1 % (0.0-5.0); NEUTROPHILS # 6.3 10^3/uL (1.8-7.7); NEUTROPHILS % 69.6 % (36.0-66.0); PLATELET COUNT, AUTOMATED 391 10^3/uL (150-450); RED BLOOD COUNT 3.74 10^6/uL (4.30-6.10); WHITE BLOOD COUNT 9.1 10^3/uL (4.0-10.0)
[2018-09-24 08:45] LABS: ALBUMIN 1.6 GM/DL (3.2-5.2); ALT/SGPT 29 U/L (12-78); BILIRUBIN,TOTAL 0.3 MG/DL (0.2-1.0); BLOOD UREA NITROGEN 10 MG/DL (7-18); CALCIUM LEVEL 9.2 MG/DL (8.8-10.2); CARBON DIOXIDE LEVEL 29 MEQ/L (21-32); CHLORIDE LEVEL 104 MEQ/L (98-107); CREATININE FOR GFR 0.89 MG/DL (0.70-1.30); GLOMERULAR FILTRATION RATE > 60.0 (>35); GLUCOSE, FASTING 78 MG/DL (70-100); MAGNESIUM LEVEL 1.8 MG/DL (1.8-2.4); POTASSIUM SERUM 3.8 MEQ/L (3.5-5.1); SODIUM LEVEL 139 MEQ/L (136-145); TOTAL PROTEIN 6.2 GM/DL (6.4-8.2)
[2018-09-24] MEDS: LACTOBACILLUS ACIDOPHILUS CAP (BACID) PO SCH (09:20)
[2018-09-24] MEDS: OMEGA-3 1000MG CAPSULE PO SCH ×2 (09:21→21:57)
[2018-09-24] MEDS: PARoxetine 20 MG TAB PO SCH (09:21)
[2018-09-24] MEDS: VITAMIN D 1,000 INTERNATIONAL UNITS TABLET PO SCH (09:21)
[2018-09-24] MEDS: hydroCHLOROthiazide 12.5 MG CAPSULE PO SCH (09:21)
[2018-09-24] MEDS: guaiFENesin ER 600 MG TAB PO SCH ×2 (09:21→21:57)
[2018-09-24] MEDS: VALSARTAN 80 MG TAB (DIOVAN) PO SCH (09:21)
[2018-09-24] MEDS: ATENOLOL 50 MG TAB PO SCH (09:22)
[2018-09-24] MEDS: AMITRIPTYLINE 10 MG TAB PO SCH ×2 (09:22→21:56)
[2018-09-24] MEDS: OMEPRAZOLE 20 MG CAP PO SCH (09:22)
[2018-09-24 14:00] VITALS: BP 119/63
--- NOTE | 2018-09-24 14:05 | IPNPDOC ---
Text Note Date of Service The patient was seen on 09/24/18. NOTE Subjective: Patient is in an 87-year-old male with a past medical history of colon cancer involving splenic fracture status post resection of distal transverse and proximal descending colon with primary anastomosis, stage III lung cancer, dyslipidemia, hypertension, arthritis, anxiety, nocturnal hypoxia, GERD who presented to the emergency room with complaints of cough and shortness of breath. Patient had a recent surgery for resection of his colon cancer and was discharged on 08/20/18. In the emergency room, patient was suspected of having a developing pneumonia and was admitted to the hospitalist service for further evaluation and treatment. Patient was seen and examined at the bedside. Patient reports his breathing is doing slightly worse. Still reports a productive cough. Denies any CP or palpitations. Denies any N/V, abdominal pain, C/D or dysuria. Objective: Vitals (See below) General: Lying in bed, no acute distress, comfortable, awake and alert HEENT: NC, AT CVS: RRR, +S1S2 Lungs: Fair air entry b/l, mild rhonchi appreciated at R lung base, no wheezing / rales Abdomen: Soft, non-distended without tenderness Extremities: no appreciable edema, - Calf tenderness Assessment and plan: Bilateral lower lobe pneumonia right greater than left, community-acquired, present on admission, in setting of stage III lung cancer: - Clinically patient does not report any significant shortness of breath or productive cough - Physical with mild rhonchi at R lung base - Leukocytosis has resolved; no significant lactic acidosis - Sputum cultures 09/20: Pseudomonas Aeruginosa - Chest CT 09/19: 1. Right lower lobe lesion is stable in size but now demonstrates small cavitary component. 2. Extensive mediastinal and hilar adenopathy similar to prior examination. 3. Superimposed dense lower lobe consolidations and scattered "tree in bud infiltrates." 4. Significant gastric wall thickening. - Continue with incentive spirometry, acapella and Guaifenesin (increased dose) - c/w Zosyn (Day #6) Hypoxia - possibly 2/2 pneumonia - Continue with supplemental oxygen; will titrate down as oxygenation improves Confusion - likely 2/2 in hospital delirium - Patient also reported some suicidal ideation - At this point, we will place the bedside sitter and suicide precautions - Will consider physiatric consultation in next 24 hours Elevated BNP - Currently, patient does not display any signs of significant fluid overload - ECHO 09/19/2018: Mild to moderate elevation of RVSP, mild TR, mild dilated IVC CVP estimated at 10, normal LVEF, normal diastolic function for age Hypertension: - Blood pressure appears well controlled - Continue atenolol, losartan, HCTZ with holding parameters. 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 with primary anastomosis: - Has been on a mechanical soft diet - Has not experienced any issues Generalized weakness: - c/w physical therapy; will likely are services upon discharge DLP - c/w Fish oil GERD - c/w omeprazole DVT prophylaxis - c/w Lovenox Disposition: - Will need psychiatry evaluation - Will titrate down supplemental oxygen - c/w Pseudomonal coverage for pneumonia VS,Fishbone, I+O VS, Fishbone, I+O Laboratory Tests 09/24/18 07:52 Red Blood Count 3.74 L, Mean Corpuscular Volume 87.2, Mean Corpuscular Hemoglobin 27.8, Mean Corpuscular Hemoglobin Concent 31.9 L, Red Cell Distribution Width 15.7 H, Neutrophils (%) (Auto) 69.6 H, Lymphocytes (%) (Auto) 18.2 L, Monocytes (%) (Auto) 8.1 H, Eosinophils (%) (Auto) 3.4 H, Basophils (%) (Auto) 0.4, Neutrophils # (Auto) 6.3, Lymphocytes # (Auto) 1.7, Monocytes # (Auto) 0.7, Eosinophils # (Auto) 0.3, Basophils # (Auto) 0.0, Calcium Level 9.2, Aspartate Amino Transf (AST/SGOT) 23, Alanine Aminotransferase (ALT/SGPT) 29, Alkaline Phosphatase 83, Total Bilirubin 0.3, Total Protein 6.2 L, Albumin 1.6 L Vital Signs Date Time Temp Pulse Resp B/P (MAP) Pulse Ox O2 Delivery O2 Flow Rate FiO2 09/24/18 09:22 87 114/74 09/24/18 09:00 5.0 09/24/18 06:00 98.4 20 92 09/19/18 15:24 Nasal Cannula I&O- Last 24 Hours up to 6 AM 09/24/18 05:59 Intake Total 1540 ml Output Total 575 ml Balance 965 ml JAMES JOSE MD Sep 24, 2018 14:05
--- NOTE | 2018-09-24 14:49 | NUR ---
Pt seen at bedside for a snack in the afternoon. Pt provided w/ regular (level 4) consistency and thin liquid. Cough noted prior to and throughout the snack. Unlikely d/t aspiration/penetration. Recommend: upgrade solids to regular (level 4). Provide reminders to take small bites and chew thoroughly. Frequent checks throughout meals. Addendum: 09/24/18 at 1450 by ROMAIN VILLA Amended: Links added.
[2018-09-24] MEDS: TAMSULOSIN 0.4 MG CAP PO SCH (21:56)
[2018-09-24] MEDS: ENOXAPARIN 40 MG/0.4 ML SYRINGE (J1650) SC SCH (21:57)
[2018-09-24 22:00] VITALS: BP 148/76
[2018-09-25] MEDS: PIPERACILLIN/TAZOBACTAM SOD 3.375 GM in D5W MINI-BAG PLUS 50 ML IV SCH ×4 (00:35→17:52)
--- NOTE | 2018-09-25 02:07 | REP ---
Clinical: Chest pain. Technique: PA and lateral. Comparison: 09/02/2018. Findings: Diffuse chronic interstitial changes are appreciated. Bibasilar infiltrates and pleural effusions are noted and require follow-up. No pneumothorax. Cardiac silhouette is normal. Skeletal structures are stable. Impression: Mild/moderate lower lobe consolidations and pleural effusions require follow-up. Electronically Signed by Renzo Overton MD 09/25/2018 01:59 A
[2018-09-25 06:00] VITALS: BP 120/60
[2018-09-25 06:41] LABS: BASO % 0.4 % (0.0-1.0); EOS # 0.4 10^3/uL (0.0-0.50); EOS % 3.6 % (0.0-3.0); HEMATOCRIT 32.5 % (42.0-52.0); HEMOGLOBIN 10.3 g/dl (13.5-17.5); LYMPH # 1.9 10^3/uL (1.5-4.5); LYMPH % 17.4 % (24.0-44.0); MEAN CORPUSCULAR HEMOGLOBIN 26.8 pg (27.0-33.0); MEAN CORPUSCULAR HGB CONC 31.7 g/dl (32.0-36.5); MEAN CORPUSCULAR VOLUME 84.6 fl (80.0-96.0); MONO # 0.8 10^3/uL (0.0-0.8); MONO % 7.4 % (0.0-5.0); NEUTROPHILS # 7.9 10^3/uL (1.8-7.7); NEUTROPHILS % 70.8 % (36.0-66.0); PLATELET COUNT, AUTOMATED 428 10^3/uL (150-450); RED BLOOD COUNT 3.84 10^6/uL (4.30-6.10); WHITE BLOOD COUNT 11.2 10^3/uL (4.0-10.0)
[2018-09-25 07:08] LABS: BLOOD UREA NITROGEN 12 MG/DL (7-18); CALCIUM LEVEL 9.2 MG/DL (8.8-10.2); CARBON DIOXIDE LEVEL 28 MEQ/L (21-32); CHLORIDE LEVEL 104 MEQ/L (98-107); CREATININE FOR GFR 0.96 MG/DL (0.70-1.30); GLOMERULAR FILTRATION RATE > 60.0 (>35); GLUCOSE, FASTING 80 MG/DL (70-100); MAGNESIUM LEVEL 1.7 MG/DL (1.8-2.4); POTASSIUM SERUM 3.7 MEQ/L (3.5-5.1); SODIUM LEVEL 139 MEQ/L (136-145)
[2018-09-25] MEDS ORDERED: MAG SULF 1GM/100ML (MAG RUN) 1 GM in APPROPRIATE DILUENT 1 EA IV ONE (07:45)
[2018-09-25] MEDS: IPRATROPIUM 0.5MG/ALBUTEROL 2.5MG INH SOL UD 3ML (DUONEB)(J7620) INH SCH ×4 (08:00→20:00)
[2018-09-25] MEDS: ADVAIR HFA 115/21MCG INHALER INH SCH ×2 (08:48→21:00)
[2018-09-25] MEDS: OMEGA-3 1000MG CAPSULE PO SCH ×2 (09:00→20:39)
[2018-09-25] MEDS: ATENOLOL 50 MG TAB PO SCH (09:17)
[2018-09-25] MEDS: VITAMIN D 1,000 INTERNATIONAL UNITS TABLET PO SCH (09:17)
[2018-09-25] MEDS: LACTOBACILLUS ACIDOPHILUS CAP (BACID) PO SCH (09:18)
[2018-09-25] MEDS: VALSARTAN 80 MG TAB (DIOVAN) PO SCH (09:18)
[2018-09-25] MEDS: guaiFENesin ER 600 MG TAB PO SCH ×2 (09:18→20:39)
[2018-09-25] MEDS: OMEPRAZOLE 20 MG CAP PO SCH (09:18)
[2018-09-25] MEDS: AMITRIPTYLINE 10 MG TAB PO SCH ×2 (09:18→20:39)
[2018-09-25] MEDS: PARoxetine 20 MG TAB PO SCH (09:18)
[2018-09-25] MEDS: hydroCHLOROthiazide 12.5 MG CAPSULE PO SCH (09:18)
--- NOTE | 2018-09-25 11:10 | IPNPDOC ---
Text Note Date of Service The patient was seen on 09/25/18. NOTE Subjective: Patient is in an 87-year-old male with a past medical history of colon cancer involving splenic fracture status post resection of distal transverse and proximal descending colon with primary anastomosis, stage III lung cancer, dyslipidemia, hypertension, arthritis, anxiety, nocturnal hypoxia, GERD who presented to the emergency room with complaints of cough and shortness of breath. Patient had a recent surgery for resection of his colon cancer and was discharged on 08/20/18. In the emergency room, patient was suspected of having a developing pneumonia and was admitted to the hospitalist service for further evaluation and treatment. Patient was seen and examined at the bedside. Patient was to have improvement in his breathing, still has been having productive cough. Denies any chest pain, palpitations. Denies nausea, vomiting, abdominal pain, constipation, diarrhea, or urinary discomfort. Objective: Vitals (See below) General: Lying in bed, no acute distress, comfortable, awake and alert HEENT: NC, AT CVS: RRR, +S1S2 Lungs: Fair air entry b/l, no evidence of rhonchi, rales or wheezing Abdomen: Soft, nondistended, no tenderness is appreciated Extremities: Low, are free of edema, - Calf tenderness Assessment and plan: Bilateral lower lobe pneumonia (right greater than left) - likely 2/2 Pseudomonas Pneumonia, present on admission, in setting of stage III lung cancer: - Clinically patient has reported improvement in his breathing - Physical with mild rhonchi at R lung base - Mild leukocytosis noted; no significant lactic acidosis - Sputum cultures 09/20: Pseudomonas Aeruginosa - Chest CT 09/19: 1. Right lower lobe lesion is stable in size but now demonstrates small cavitary component. 2. Extensive mediastinal and hilar adenopathy similar to prior examination. 3. Superimposed dense lower lobe consolidations and scattered "tree in bud infiltrates." 4. Significant gastric wall thickening. - Continue with incentive spirometry, acapella and Guaifenesin - c/w Zosyn (Day #7) Hypoxia - likely 2/2 pneumonia - Continue with supplemental oxygen; will titrate down as oxygenation improves Confusion - likely 2/2 in hospital delirium - Patient also reported some suicidal ideation; currently does not state any suicidal - At this point, we will place the bedside sitter and suicide precautions - Consulted psychiatry; Dr. Bowers Elevated BNP - Currently, patient does not display any signs of significant fluid overload - ECHO 09/19/2018: Mild to moderate elevation of RVSP, mild TR, mild dilated IVC CVP estimated at 10, normal LVEF, normal diastolic function for age Hypertension: - Blood pressure appears well controlled - Continue atenolol, losartan, HCTZ with holding parameters. Adenocarcinoma involving splenic flexure status post resection of distal tr ansverse and proximal descending colon with primary anastomosis: - Has been on a mechanical soft diet - Has not experienced any issues Generalized weakness: - c/w physical therapy; will likely are services upon discharge DLP - c/w Fish oil GERD - c/w omeprazole DVT prophylaxis - c/w Lovenox Disposition: - Consulted psychiatry - Continue to taper down oxygen - c/w Pseudomonal coverage for pneumonia VS,Fishbone, I+O VS, Fishbone, I+O Laboratory Tests 09/25/18 06:05 Red Blood Count 3.84 L, Mean Corpuscular Volume 84.6, Mean Corpuscular Hemoglobin 26.8 L, Mean Corpuscular Hemoglobin Concent 31.7 L, Red Cell Distribution Width 15.8 H, Neutrophils (%) (Auto) 70.8 H, Lymphocytes (%) (Auto) 17.4 L, Monocytes (%) (Auto) 7.4 H, Eosinophils (%) (Auto) 3.6 H, Basophils (%) (Auto) 0.4, Neutrophils # (Auto) 7.9 H, Lymphocytes # (Auto) 1.9, Monocytes # (Auto) 0.8, Eosinophils # (Auto) 0.4, Basophils # (Auto) 0.0, Calcium Level 9.2 Vital Signs Date Time Temp Pulse Resp B/P (MAP) Pulse Ox O2 Delivery O2 Flow Rate FiO2 09/25/18 10:30 2.0 09/25/18 09:17 79 122/78 09/25/18 06:00 98.3 19 92 09/19/18 15:24 Nasal Cannula I&O- Last 24 Hours up to 6 AM 09/25/18 06:00 Intake Total 970 ml Balance 970 ml JAMES JOSE MD Sep 25, 2018 11:10
--- NOTE | 2018-09-25 13:58 | MHCRPDOC ---
[facility] Consultation Consultation DATE OF CONSULTATION: 09/25/18 CONSULTATION REQUESTED BY: Dr. Newman REASON FOR CONSULTATION: SI RELEVANT HISTORY: Per Dr. Newman Admit Note: "The patient is a 87-year-old gentleman who presents to the ER with complaints of increasing shortness of breath, cough as well as wheezing worsening over the last couple of weeks. 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 He reports he had been doing okay thereafter, however, as noted, he had been having increasing respirator symptoms for the last couple of weeks. He reports productive cough with whitish sputum. Denies any associated chest pain fevers or sweats but does report associated chills particularly in the evening. Reports associated weakness. Denies any abdominal pain. No change in his bladder or bowel habits. Given the worsening symptoms, he had presented to the ER." Pt seen and states he's doing "good." Asked about suicidal comment he made y esterday and stated that he was confused in the moment which was causing him to feel anxious, frustrated, and scared b/c all these people were working on him and no one was telling him why he was here or where he was. Denies any confusion today and appears to be fully oriented, does not appear confused. Stated "I feel like a stupid idiot and would told my self 'stop the crap'" for making suicidal comment and regrets it. Talk to pt at length about why he became confused due to hypoxia and appreciated info. States that all the staff have been very nice to him here and that his daughter came to visit him yesterday which was nice. He appears euthymic, bright, denies SI, and is very pleasant making light hearted jokes and laughing appropriately during interview. States he's hopeful to be able to go home soon when he's better as he is very independent at home doing his own cooking, cleaning, and yard work. States his family is very supportive. Denies depression, anxiety, SI/HI, confusion, hallucinations, delusions. Feels safe here and does not feel he needs a 1:1 sitter. States he would never harm himself and doesn't want to . PAST PSYCHIATRIC HISTORY: Per Record has a history of anxiety. No history of psychiatric admission or outpatient treatment. No history of suicide attempt Psych Meds: Paxil 20mg daily, Amitriptyline 20 MG PO BID PAST MEDICAL HISTORY: Medical History Colon cancer involving splenic flexure status post resection of distal transverse and proximal descending colon with primary anastomosis, stage III lung cancer, GERD, hyperlipidemia, hypertension, osteoarthritis, anxiety, oxygen use at nighttime, hard of hearing Surgical History Left hip replacement, left carpal tunnel release, TURP for BPH, right inguinal hernia repair, right knee replacement, bilateral hip replacement, right wrist fusion FAMILY HISTORY: Denies family psychiatric history PERSONAL AND SOCIAL HISTORY: The patient was born and raised in [place], 2 p arent home, with 1 sister who is alove and supportive Resides in: [place] Marital Status: Children: 3 adult children that are supportive 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 He is very cooperative and pleasant. Speech is reg rate, rhythm, volume Language skills are good Thought processes including: linear, logical Thought content: denies SI/HI, hopeful to get better and go home soon Abstract reasoning, and computation: intact Description of associations: appropriate Description of abnormal or psychotic thoughts: denies hallucinations, delusions Judgment: good Insight: good Orientation to x3, does not appear confused Recent and remote memory: intact Attention span and concentration: good Language: appropriate Fund of knowledge: average Mood: "good" Affect: euthymic, full, bright DIAGNOSIS: 1. Delirium secondary hypoxia now resolved PLAN: 1. continue current paxil and amitriptyline 2. D/c sitter 3. able to d/c home once medically stable. No SI 4. Will sign off now, thanks Vital Signs Vital Signs Date Time Temp Pulse Resp B/P (MAP) Pulse Ox O2 Delivery O2 Flow Rate FiO2 09/25/18 10:30 2.0 09/25/18 09:17 79 122/78 09/25/18 06:00 98.3 19 92 09/19/18 15:24 Nasal Cannula Laboratory Data 24[facility] Labs Laboratory Tests 2 09/25/18 06:05: Immature Granulocyte % (Auto) 0.4, White Blood Count 11.2H, Red Blood Count 3.84L, Hemoglobin 10.3L, Hematocrit 32.5L, Mean Corpuscular Volume 84.6, Mean Corpuscular Hemoglobin 26.8L, Mean Corpuscular Hemoglobin Concent 31.7L, Red Cell Distribution Width 15.8H, Platelet Count 428, Neutrophils (%) (Auto) 70.8H, Lymphocytes (%) (Auto) 17.4L, Monocytes (%) (Auto) 7.4H, Eosinophils (%) (Auto) 3.6H, Basophils (%) (Auto) 0.4, Neutrophils # (Auto) 7.9H, Lymphocytes # (Auto) 1.9, Monocytes # (Auto) 0.8, Eosinophils # (Auto) 0.4, Basophils # (Auto) 0.0, Nucleated Red Blood Cells % (auto) 0.0, Anion Gap 7L, Glomerular Filtration Rate > 60.0, Blood Urea Nitrogen 12, Creatinine 0.96, Sodium Level 139, Potassium Level 3.7, Chloride Level 104, Carbon Dioxide Level 28, Calcium Level 9.2, Magnesium Level 1.7L Home Medications Current Medications Current Medications Acetaminophen (Tylenol Tab) 650 mg Q4H PRN PO PAIN OR FEVER; Start 09/19/18 at 14:45 Albuterol Sulfate (Proventil Neb) 2.5 mg Q4H PRN INH WHEEZING Last administered on 09/24/18at 09:35; Start 09/19/18 at 14:45 Albuterol/ Ipratropium (Duoneb (Ipr 0.5mg/Alb 2.5mg)) 3 ml RQID INH Last administered on 09/24/18at 14:56; Start 09/19/18 at 16:00 Amitriptyline HCl (Elavil) 20 mg BID PO Last administered on 09/25/18 09:18; Start 09/19/18 at 21:00 Artificial Tears (Akwa Tears) 1 drop QIDP PRN OU DRY EYES; Start 09/19/18 at 16:00 Atenolol (Tenormin) 50 mg DAILY PO Last administered on 09/25/18at 09:17; Start 09/20/18 at 09:00 Enoxaparin Sodium (Lovenox) 40 mg QHS SC Last administered on 09/24/18 21:57; Start 09/19/18 at 21:00 Fish Oil (Nolan-3 (1000mg)) 2 cap BID PO Last administered on 09/24/18 21:57; Start 09/19/18 at 21:00 Guaifenesin (Mucinex Tab Er) 600 mg BID PO Last administered on 09/24/18 09:21; Start 09/19/18 at 21:00; Stop 09/24/18 at 14:00; Status DC Guaifenesin (Mucinex Tab Er) 1,200 mg BID PO Last administered on 09/25/18 09:18; Start 09/24/18 at 21:00 Home Med (Med Rec Complete!) ASDIRECTED XX ; Start 09/19/18 at 15:00; Stop 09/19/18 at 15:00; Status DC Hydrochlorothiazide (Hydrodiuril) 12.5 mg DAILY PO Last administered on 09/25/18 09:18; Start 09/20/18 at 09:00 Lactobacillus Acidophilus (Bacid) 1 ea DAILY PO Last administered on 09/25/18 09:18; Start 09/20/18 at 09:00 Magnesium Hydroxide (Milk Of Magnesia) 30 ml DAILY PRN PO CONSTIPATION; Start 09/19/18 at 14:45 Magnesium Sulfate/ Dextrose 1 gm/IV Miscellaneous Supplies 100 ml @ 100 mls/hr Q1H IV Last administered on 09/20/18 11:00; Start 09/20/18 at 09:00; Stop 09/20/18 at 11:59; Status DC Omeprazole (PriLOSEC) 20 mg DAILY PO Last administered on 09/25/18 09:18; Start 09/20/18 at 09:00 Paroxetine HCl (PAXil) 20 mg DAILY PO Last administered on 09/25/18 09:18; Start 09/20/18 at 09:00 Piperacillin Sod/ Tazobactam Sod 3.375 gm/Dextrose 50 ml @ 50 mls/hr Q6H IV Last administered on 09/25/18 05:56; Start 09/19/18 at 18:00 Potassium Chloride (Micro-K Extencaps) 40 meq Q4H PO Last administered on 09/21/18 12:52; Start 09/21/18 at 08:00; Stop 09/21/18 at 12:01; Status DC Salmeterol Xinafoate/ Fluticasone (Advair Hfa 115/ 21) 2 puff BID INH Last administered on 09/25/18at 08:48; Start 09/19/18 at 21:00 Tamsulosin HCl (Flomax) 0.4 mg QHS PO Last administered on 09/24/18at 21:56; Start 09/19/18 at 21:00 Valsartan (Diovan) 160 mg DAILY PO Last administered on 09/25/18at 09:18; Start 09/20/18 at 09:00 Vitamin D (Vitamin D) 2,000 units DAILY PO Last administered on 09/25/18at 09:17; Start 09/20/18 at 09:00 Scheduled Amitriptyline HCl (Amitriptyline HCl) 10 Mg Tab, 20 MG PO BID, (Reported) Atenolol (Atenolol) 50 Mg Tab, 50 MG PO DAILY, (Reported) Cholecalciferol (Vitamin D3) (Vitamin D3) 2,000 Unit Tab, 2,000 UNIT PO DAILY, (Reported) Fluticasone Propion/Salmeterol (Advair Hfa 115-21 Mcg Inhaler) 12 Gm Hfa.aer.ad, 2 PUFFS INH BID, (Reported) Lactobacillus Acidophilus (Digestive Probiotic) 1 Each Capsule, 1 CAP PO DAILY, (Reported) Nolan-3S/Dha/Epa/Fish Oil (Fish Oil EC 1,200 mg Softgel) 1 Cap Cap, 2 CAP PO BID, (Reported) Omeprazole (Omeprazole) 20 Mg Capsule.dr, 20 MG PO BID, (Reported) Paroxetine HCl (Paroxetine) 20 Mg Tablet, 20 MG PO DAILY, (Reported) Tamsulosin HCl (Flomax) 0.4 Mg Capsule, 0.4 MG PO QHS, (Reported) Valsartan/Hydrochlorothiazide (Valsartan-Hctz 160-12.5 mg Tab) 1 Each Tablet, 0.5 TAB PO DAILY, (Reported) Scheduled PRN Albuterol Sulfate (Ventolin Hfa) 18 Gm Hfa.aer.ad, 2 PUFF INH Q4H PRN for SHORTNESS OF BREATH, (Reported) Propylene Glycol (Systane Complete) 0.6 % [place], 1 DROP OU BID PRN for DRY EYES, (Reported) Allergies Coded Allergies: ibuprofen (Verified Allergy, Mild, Flu like symptoms, 08/06/18) ciprofloxacin (Verified Allergy, Unknown, 08/06/18) escitalopram (Verified Allergy, Unknown, 08/06/18) fluoxetine (Verified Allergy, Unknown, 08/06/18) pantoprazole (Verified Allergy, Unknown, 08/06/18) sertraline (Verified Allergy, Unknown, 08/06/18) venlafaxine (Verified Allergy, Unknown, 08/06/18) morphine (Verified Adverse Reaction, Intermediate, psychotic, 08/06/18) ANA BURK DO Sep 25, 2018 1:21 pm
[2018-09-25 14:00] VITALS: BP 99/64
[2018-09-25] MEDS: TAMSULOSIN 0.4 MG CAP PO SCH (20:39)
[2018-09-25] MEDS: ENOXAPARIN 40 MG/0.4 ML SYRINGE (J1650) SC SCH (20:40)
[2018-09-25 22:00] VITALS: BP 116/68
[2018-09-26] MEDS: PIPERACILLIN/TAZOBACTAM SOD 3.375 GM in D5W MINI-BAG PLUS 50 ML IV SCH ×4 (00:49→18:01)
[2018-09-26 05:56] LABS: BASO % 0.4 % (0.0-1.0); EOS # 0.4 10^3/uL (0.0-0.50); EOS % 4.2 % (0.0-3.0); HEMATOCRIT 32.6 % (42.0-52.0); HEMOGLOBIN 10.3 g/dl (13.5-17.5); LYMPH # 1.7 10^3/uL (1.5-4.5); LYMPH % 17.4 % (24.0-44.0); MEAN CORPUSCULAR HEMOGLOBIN 27.6 pg (27.0-33.0); MEAN CORPUSCULAR HGB CONC 31.6 g/dl (32.0-36.5); MEAN CORPUSCULAR VOLUME 87.4 fl (80.0-96.0); MONO # 0.8 10^3/uL (0.0-0.8); MONO % 8.8 % (0.0-5.0); NEUTROPHILS # 6.6 10^3/uL (1.8-7.7); NEUTROPHILS % 68.7 % (36.0-66.0); PLATELET COUNT, AUTOMATED 368 10^3/uL (150-450); RED BLOOD COUNT 3.73 10^6/uL (4.30-6.10); WHITE BLOOD COUNT 9.5 10^3/uL (4.0-10.0)
[2018-09-26 06:00] VITALS: BP 118/66
[2018-09-26 06:22] LABS: BLOOD UREA NITROGEN 12 MG/DL (7-18); CALCIUM LEVEL 9.2 MG/DL (8.8-10.2); CARBON DIOXIDE LEVEL 28 MEQ/L (21-32); CHLORIDE LEVEL 105 MEQ/L (98-107); CREATININE FOR GFR 0.85 MG/DL (0.70-1.30); GLOMERULAR FILTRATION RATE > 60.0 (>35); GLUCOSE, FASTING 78 MG/DL (70-100); MAGNESIUM LEVEL 1.9 MG/DL (1.8-2.4); POTASSIUM SERUM 3.8 MEQ/L (3.5-5.1); SODIUM LEVEL 139 MEQ/L (136-145)
[2018-09-26] MEDS: ADVAIR HFA 115/21MCG INHALER INH SCH ×2 (07:28→19:33)
[2018-09-26] MEDS: IPRATROPIUM 0.5MG/ALBUTEROL 2.5MG INH SOL UD 3ML (DUONEB)(J7620) INH SCH ×4 (07:28→19:33)
[2018-09-26] MEDS: LACTOBACILLUS ACIDOPHILUS CAP (BACID) PO SCH (08:26)
[2018-09-26] MEDS: VITAMIN D 1,000 INTERNATIONAL UNITS TABLET PO SCH (08:26)
[2018-09-26] MEDS: guaiFENesin ER 600 MG TAB PO SCH ×2 (08:26→22:13)
[2018-09-26] MEDS: VALSARTAN 80 MG TAB (DIOVAN) PO SCH (08:26)
[2018-09-26] MEDS: AMITRIPTYLINE 10 MG TAB PO SCH ×2 (08:26→22:14)
[2018-09-26] MEDS: OMEPRAZOLE 20 MG CAP PO SCH (08:27)
[2018-09-26] MEDS: ATENOLOL 50 MG TAB PO SCH (08:27)
[2018-09-26] MEDS: hydroCHLOROthiazide 12.5 MG CAPSULE PO SCH (08:27)
[2018-09-26] MEDS: OMEGA-3 1000MG CAPSULE PO SCH ×2 (08:27→22:14)
[2018-09-26] MEDS: PARoxetine 20 MG TAB PO SCH (08:27)
--- NOTE | 2018-09-26 11:50 | IPNPDOC ---
Text Note Date of Service The patient was seen on 09/26/18. NOTE Subjective: Patient is in an 87-year-old male with a past medical history of colon cancer involving splenic fracture status post resection of distal transverse and proximal descending colon with primary anastomosis, stage III lung cancer, dyslipidemia, hypertension, arthritis, anxiety, nocturnal hypoxia, GERD who presented to the emergency room with complaints of cough and shortness of breath. Patient had a recent surgery for resection of his colon cancer and was discharged on 08/20/18. In the emergency room, patient was suspected of having a developing pneumonia and was admitted to the hospitalist service for further evaluation and treatment. Patient was seen and examined at the bedside. Patient continues to make progress with physical therapy. . He reports his breathing is doing significantly better. Still experiences a mild cough, chest pain, shortness of breath or palpitations. Has had no diarrhea or urinary discomfort. Objective: Vitals (See below) General: Lying in bed, no acute distress, comfortable, awake and alert HEENT: NC, AT CVS: RRR, +S1S2 Lungs: Air entry appears to be fair bilaterally without evidence of rhonchi, rales or wheezing Abdomen: Abdomen remains soft without distention or tenderness Extremities: No edema is appreciated. Lower extremities, - Calf tenderness Assessment and plan: Bilateral lower lobe pneumonia (right greater than left) - likely 2/2 Pseudo monas Pneumonia, present on admission, in setting of stage III lung cancer: - Clinically patient has reported improvement in his breathing - Physical with mild rhonchi at R lung base - Mild leukocytosis noted; no significant lactic acidosis - Sputum cultures 09/20: Pseudomonas Aeruginosa - Chest CT 09/19: 1. Right lower lobe lesion is stable in size but now demonstrates small cavitary component. 2. Extensive mediastinal and hilar adenopathy similar to prior examination. 3. Superimposed dense lower lobe consolidations and scattered "tree in bud infiltrates." 4. Significant gastric wall thickening. - Continue with incentive spirometry, acapella and Guaifenesin - c/w Zosyn (Day #8); will verify allergy to Ciprofloxacin prior to transition to Levaquin Hypoxia - likely 2/2 pneumonia - Continue with supplemental oxygen; will titrate down as oxygenation improves - Has been ambulating without any significant additional requirement for oxygen Confusion - likely 2/2 in hospital delirium - Patient also reported some suicidal ideation; currently does not state any suicidal - At this point, we will place the bedside sitter and suicide precautions - Consulted psychiatry; Dr. Bowers; has cleared Elevated BNP - Currently, patient does not display any signs of significant fluid overload - ECHO 09/19/2018: Mild to moderate elevation of RVSP, mild TR, mild dilated IVC CVP estimated at 10, normal LVEF, normal diastolic function for age Hypertension: - Blood pressure appears well controlled - c/w adjusted dose of atenolol - s/p Losartan, HCTZ 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 with primary anastomosis: - Has been on a mechanical soft diet - Has not experienced any issues Generalized weakness: - c/w physical therapy; will likely are services upon discharge DLP - c/w Fish oil GERD - c/w omeprazole DVT prophylaxis - c/w Lovenox Disposition: - Consulted psychiatry - Continue to taper down oxygen - c/w Pseudomonal coverage for pneumonia VS,Fishbone, I+O VS, Fishbone, I+O Laboratory Tests 09/26/18 05:38 Red Blood Count 3.73 L, Mean Corpuscular Volume 87.4, Mean Corpuscular Hemoglobin 27.6, Mean Corpuscular Hemoglobin Concent 31.6 L, Red Cell Distribution Width 15.8 H, Neutrophils (%) (Auto) 68.7 H, Lymphocytes (%) (Auto) 17.4 L, Monocytes (%) (Auto) 8.8 H, Eosinophils (%) (Auto) 4.2 H, Basophils (%) (Auto) 0.4, Neutrophils # (Auto) 6.6, Lymphocytes # (Auto) 1.7, Monocytes # (Auto) 0.8, Eosinophils # (Auto) 0.4, Basophils # (Auto) 0.0, Calcium Level 9.2 Vital Signs Date Time Temp Pulse Resp B/P (MAP) Pulse Ox O2 Delivery O2 Flow Rate FiO2 09/26/18 09:23 2.0 09/26/18 08:27 75 09/26/18 08:26 112/64 09/26/18 06:00 97.1 20 92 I&O- Last 24 Hours up to 6 AM 09/26/18 06:00 Intake Total 1665 ml Output Total 1575 ml Balance 90 ml JAMES JOSE MD Sep 26, 2018 11:50
[2018-09-26 14:00] VITALS: BP 98/60
[2018-09-26 22:00] VITALS: BP 128/65
[2018-09-26] MEDS: TAMSULOSIN 0.4 MG CAP PO SCH (22:13)
[2018-09-26] MEDS: ENOXAPARIN 40 MG/0.4 ML SYRINGE (J1650) SC SCH (22:14)
[2018-09-27 00:09] LABS: BODY FLUID CULTURE Not Indicated (.); LEGIONELLA ANTIGEN URINE Negative (Negative); ORGANISM ID Not indicated. (.); SPECIMEN SOURCE Urine (.); URINE STREP PNEUMONIAE ANTIGEN Negative (Negative)
[2018-09-27] MEDS: PIPERACILLIN/TAZOBACTAM SOD 3.375 GM in D5W MINI-BAG PLUS 50 ML IV SCH ×5 (00:31→23:51)
[2018-09-27 06:00] VITALS: BP 129/70
[2018-09-27 06:08] LABS: BASO % 0.4 % (0.0-1.0); EOS # 0.4 10^3/uL (0.0-0.50); EOS % 3.5 % (0.0-3.0); HEMATOCRIT 32.1 % (42.0-52.0); HEMOGLOBIN 10.2 g/dl (13.5-17.5); LYMPH # 1.6 10^3/uL (1.5-4.5); MEAN CORPUSCULAR HEMOGLOBIN 27.1 pg (27.0-33.0); MEAN CORPUSCULAR HGB CONC 31.8 g/dl (32.0-36.5); MEAN CORPUSCULAR VOLUME 85.1 fl (80.0-96.0); MONO # 0.9 10^3/uL (0.0-0.8); MONO % 8.6 % (0.0-5.0); NEUTROPHILS # 7.2 10^3/uL (1.8-7.7); NEUTROPHILS % 71.1 % (36.0-66.0); PLATELET COUNT, AUTOMATED 389 10^3/uL (150-450); RED BLOOD COUNT 3.77 10^6/uL (4.30-6.10); WHITE BLOOD COUNT 10.1 10^3/uL (4.0-10.0)
[2018-09-27 06:26] LABS: BLOOD UREA NITROGEN 11 MG/DL (7-18); CALCIUM LEVEL 9.7 MG/DL (8.8-10.2); CARBON DIOXIDE LEVEL 29 MEQ/L (21-32); CHLORIDE LEVEL 103 MEQ/L (98-107); CREATININE FOR GFR 0.91 MG/DL (0.70-1.30); GLOMERULAR FILTRATION RATE > 60.0 (>35); GLUCOSE, FASTING 74 MG/DL (70-100); MAGNESIUM LEVEL 1.8 MG/DL (1.8-2.4); POTASSIUM SERUM 3.8 MEQ/L (3.5-5.1); SODIUM LEVEL 138 MEQ/L (136-145)
[2018-09-27] MEDS: ADVAIR HFA 115/21MCG INHALER INH SCH ×2 (07:39→19:27)
[2018-09-27] MEDS: IPRATROPIUM 0.5MG/ALBUTEROL 2.5MG INH SOL UD 3ML (DUONEB)(J7620) INH SCH ×4 (07:39→19:27)
[2018-09-27] MEDS ORDERED: HALOPERIDOL 5 MG/ML VIAL (J1630) IV PRN (09:15)
[2018-09-27] MEDS ORDERED: HALOPERIDOL 5 MG/ML VIAL (J1630) As Ordered ONE (09:18)
[2018-09-27] MEDS: HALOPERIDOL 5 MG/ML VIAL (J1630) IV PRN (09:31)
[2018-09-27] MEDS: LACTOBACILLUS ACIDOPHILUS CAP (BACID) PO SCH (11:00)
[2018-09-27] MEDS: VITAMIN D 1,000 INTERNATIONAL UNITS TABLET PO SCH (11:00)
[2018-09-27] MEDS: OMEGA-3 1000MG CAPSULE PO SCH ×2 (11:00→20:28)
[2018-09-27] MEDS: AMITRIPTYLINE 10 MG TAB PO SCH ×2 (11:01→20:28)
[2018-09-27] MEDS: OMEPRAZOLE 20 MG CAP PO SCH (11:01)
[2018-09-27] MEDS: PARoxetine 20 MG TAB PO SCH (11:01)
[2018-09-27] MEDS: guaiFENesin ER 600 MG TAB PO SCH ×2 (11:01→20:28)
[2018-09-27] MEDS: VALSARTAN 80 MG TAB (DIOVAN) PO SCH (11:01)
[2018-09-27] MEDS: ATENOLOL 25 MG TAB PO SCH (11:02)
--- NOTE | 2018-09-27 11:39 | IPNPDOC ---
Text Note Date of Service The patient was seen on 09/27/18. NOTE Subjective: Patient is in an 87-year-old male with a past medical history of colon cancer involving splenic fracture status post resection of distal transverse and proximal descending colon with primary anastomosis, stage III lung cancer, dyslipidemia, hypertension, arthritis, anxiety, nocturnal hypoxia, GERD who presented to the emergency room with complaints of cough and shortness of breath. Patient had a recent surgery for resection of his colon cancer and was discharged on 08/20/18. In the emergency room, patient was suspected of having a developing pneumonia and was admitted to the hospitalist service for further evaluation and treatment. Patient was seen and examined at the bedside. Currently, patient become very confused this morning was unsure of his surroundings reported that he is being held against his will and that he wanted to leave immediately. I have talked the patient down and walking back to his room. I discussed with his son, the necessity for continued antibiotics and supplemental oxygen. Anticipated that she may be discharged within the next 2 days. Currently patient has no new concerns, but still questions whether his son was truly on the phone. Objective: Vitals (See below) General: Lying in bed, no acute distress, comfortable, awake and alert HEENT: NC, AT CVS: RRR, +S1S2 Lungs: Air entry appears to be fair bilaterally without auscultated evidence of rhonchi, rales or wheezing Abdomen: Remains soft without distention or tenderness Extremities: Lower extremities are without any edema, - Calf tenderness Assessment and plan: Bilateral lower lobe pneumonia (right greater than left) - likely 2/2 Pseudomonas Pneumonia, present on admission, in setting of stage III lung cancer: - Patient has been ambulating without significant difficulty - Physical does not reveal any significant adventitious lung sounds - Patient still requiring some oxygen - Mild leukocytosis again is appreciated; no significant lactic acidosis - Sputum cultures 09/20: Pseudomonas Aeruginosa - Chest CT 09/19: 1. Right lower lobe lesion is stable in size but now demonstrates small cavitary component. 2. Extensive mediastinal and hilar adenopathy similar to prior examination. 3. Superimposed dense lower lobe consolidations and scattered "tree in bud infiltrates." 4. Significant gastric wall thickening. - Continue with incentive spirometry, acapella and Guaifenesin - c/w Zosyn (Day #9 of 10) Hypoxia - likely 2/2 pneumonia - Continue with supplemental oxygen - Has been ambulating without any significant additional requirement for oxygen - Will continue to taper down oxygen Confusion - likely 2/2 in hospital delirium - Patient also reported some suicidal ideation; currently does not state any suicidal - This morning patient had an episode of confusion and reported that we were refusing him to get to his room for allowing him to leave the hospital - Bedside sitter will be placed again - c/w Haldol PRN agitation / anxiety - Consulted psychiatry; Dr. Bowers; has cleared Elevated BNP - Currently, patient does not display any signs of significant fluid overload - ECHO 09/19/2018: Mild to moderate elevation of RVSP, mild TR, mild dilated IVC CVP estimated at 10, normal LVEF, normal diastolic function for age Hypertension: - Blood pressure appears well controlled - c/w adjusted dose of atenolol - s/p Losartan, HCTZ 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 with primary anastomosis: - Has been on a mechanical soft diet - Has not experienced any issues Generalized weakness: - c/w physical therapy; will likely are services upon discharge DLP - c/w Fish oil GERD - c/w omeprazole DVT prophylaxis - c/w Lovenox Disposition: - Continue to taper down oxygen - c/w Pseudomonal coverage for pneumonia - Will continue with physical therapy VS,Fishbone, I+O VS, Fishbone, I+O Laboratory Tests 09/27/18 05:47 Red Blood Count 3.77 L, Mean Corpuscular Volume 85.1, Mean Corpuscular Hemoglobin 27.1, Mean Corpuscular Hemoglobin Concent 31.8 L, Red Cell Distribution Width 15.9 H, Neutrophils (%) (Auto) 71.1 H, Lymphocytes (%) (Auto) 16.0 L, Monocytes (%) (Auto) 8.6 H, Eosinophils (%) (Auto) 3.5 H, Basophils (%) (Auto) 0.4, Neutrophils # (Auto) 7.2, Lymphocytes # (Auto) 1.6, Monocytes # (Auto) 0.9 H, Eosinophils # (Auto) 0.4, Basophils # (Auto) 0.0, Calcium Level 9.7 Vital Signs Date Time Temp Pulse Resp B/P (MAP) Pulse Ox O2 Delivery O2 Flow Rate FiO2 09/27/18 11:01 104/72 09/27/18 07:40 Nasal Cannula 1.0 09/27/18 06:00 97.8 77 22 92 I&O- Last 24 Hours up to 6 AM 09/27/18 06:00 Intake Total 830 ml Output Total 1800 ml Balance -970 ml JAMES JOSE MD Sep 27, 2018 11:39
[2018-09-27 14:00] VITALS: BP 104/58
--- NOTE | 2018-09-27 14:26 | REP ---
Chest one-view HISTORY: Pneumonia Comparison: 09/24/2018 An increase in interstitial markings is present in the lungs consistent with chronic interstitial change. Parenchymal densities are present in the lower lobes consistent with bibasilar infiltrates slightly decreased on the right and unchanged on the left. All bilateral pleural effusions are present decreased on the right and unchanged on the left. The heart is normal in size. The pulmonary vasculature is normal in appearance. Impression: 1. Chronic interstitial change. 2. Bibasilar infiltrates decreased on the right and unchanged on the left. 3. Small bilateral pleural effusions decreased on the right and unchanged on the left. Electronically Signed by Pancho Nunn MD 09/27/2018 02:17 P
[2018-09-27] MEDS: ENOXAPARIN 40 MG/0.4 ML SYRINGE (J1650) SC SCH (20:28)
[2018-09-27] MEDS: TAMSULOSIN 0.4 MG CAP PO SCH (20:28)
[2018-09-27 22:00] VITALS: BP 119/66
[2018-09-28] MEDS: HALOPERIDOL 5 MG/ML VIAL (J1630) IV PRN (04:52)
[2018-09-28] MEDS: PIPERACILLIN/TAZOBACTAM SOD 3.375 GM in D5W MINI-BAG PLUS 50 ML IV SCH ×4 (05:22→23:32)
[2018-09-28 06:00] VITALS: BP 121/72
[2018-09-28 06:49] LABS: BASO % 0.4 % (0.0-1.0); EOS # 0.2 10^3/uL (0.0-0.50); EOS % 2.6 % (0.0-3.0); HEMATOCRIT 32.4 % (42.0-52.0); HEMOGLOBIN 10.1 g/dl (13.5-17.5); LYMPH # 1.5 10^3/uL (1.5-4.5); LYMPH % 15.9 % (24.0-44.0); MEAN CORPUSCULAR HEMOGLOBIN 27.3 pg (27.0-33.0); MEAN CORPUSCULAR HGB CONC 31.2 g/dl (32.0-36.5); MEAN CORPUSCULAR VOLUME 87.6 fl (80.0-96.0); MONO # 0.9 10^3/uL (0.0-0.8); MONO % 10.2 % (0.0-5.0); NEUTROPHILS # 6.5 10^3/uL (1.8-7.7); NEUTROPHILS % 70.5 % (36.0-66.0); PLATELET COUNT, AUTOMATED 358 10^3/uL (150-450); WHITE BLOOD COUNT 9.2 10^3/uL (4.0-10.0)
[2018-09-28 07:04] LABS: BLOOD UREA NITROGEN 13 MG/DL (7-18); CALCIUM LEVEL 9.2 MG/DL (8.8-10.2); CARBON DIOXIDE LEVEL 30 MEQ/L (21-32); CHLORIDE LEVEL 104 MEQ/L (98-107); CREATININE FOR GFR 0.83 MG/DL (0.70-1.30); GLOMERULAR FILTRATION RATE > 60.0 (>35); GLUCOSE, FASTING 80 MG/DL (70-100); MAGNESIUM LEVEL 1.8 MG/DL (1.8-2.4); POTASSIUM SERUM 3.7 MEQ/L (3.5-5.1); SODIUM LEVEL 139 MEQ/L (136-145)
[2018-09-28] MEDS ORDERED: FUROSEMIDE 20 MG/2 ML VIAL (J1940) IV ONE (08:00)
[2018-09-28] MEDS: IPRATROPIUM 0.5MG/ALBUTEROL 2.5MG INH SOL UD 3ML (DUONEB)(J7620) INH SCH ×4 (08:00→20:00)
[2018-09-28] MEDS: VITAMIN D 1,000 INTERNATIONAL UNITS TABLET PO SCH (10:37)
[2018-09-28] MEDS: VALSARTAN 80 MG TAB (DIOVAN) PO SCH (10:37)
[2018-09-28] MEDS: AMITRIPTYLINE 10 MG TAB PO SCH ×2 (10:37→21:08)
[2018-09-28] MEDS: LACTOBACILLUS ACIDOPHILUS CAP (BACID) PO SCH (10:37)
[2018-09-28] MEDS: OMEPRAZOLE 20 MG CAP PO SCH (10:37)
[2018-09-28] MEDS: guaiFENesin ER 600 MG TAB PO SCH ×2 (10:38→21:08)
[2018-09-28] MEDS: PARoxetine 20 MG TAB PO SCH (10:38)
[2018-09-28] MEDS: ATENOLOL 25 MG TAB PO SCH (10:38)
[2018-09-28] MEDS: OMEGA-3 1000MG CAPSULE PO SCH ×2 (10:38→21:08)
[2018-09-28] MEDS: ADVAIR HFA 115/21MCG INHALER INH SCH ×2 (12:23→20:14)
--- NOTE | 2018-09-28 12:36 | IPNPDOC ---
Text Note Date of Service The patient was seen on 09/28/18. NOTE Subjective: Patient is in an 87-year-old male with a past medical history of colon cancer involving splenic fracture status post resection of distal transverse and proximal descending colon with primary anastomosis, stage III lung cancer, dyslipidemia, hypertension, arthritis, anxiety, nocturnal hypoxia, GERD who presented to the emergency room with complaints of cough and shortness of breath. Patient had a recent surgery for resection of his colon cancer and was discharged on 08/20/18. In the emergency room, patient was suspected of having a developing pneumonia and was admitted to the hospitalist service for further evaluation and treatment. Patient was seen and examined at the bedside. Patient appears to be sleepy this morning. He denies chest pain, shortness of breath or palpitations. Denies nausea, vomiting, abdominal pain. Currently still does experience a cough. Objective: Vitals (See below) General: Lying in bed, no acute distress, comfortable, awake and alert HEENT: NC, AT CVS: RRR, +S1S2 Lungs: There appears to be fair air entry bilaterally without any auscultated evidence of rhonchi or wheezing. There are mild crackles at bases Abdomen: Abdomen is soft without tenderness or distention Extremities: No evidence of edema. Lower extremities, - Calf tenderness Assessment and plan: Bilateral lower lobe pneumonia (right greater than left) - likely 2/2 Pseudomonas Pneumonia, present on admission, in setting of stage III lung cancer: - Yesterday, patient was able to ambulate without any supplemental oxygen - Physical does not reveal any significant adventitious lung sounds - Patient still requiring some oxygen - Mild leukocytosis again is appreciated; no significant lactic acidosis - Sputum cultures 09/20: Pseudomonas Aeruginosa - Chest CT 09/19: 1. Right lower lobe lesion is stable in size but now demonstrates small cavitary component. 2. Extensive mediastinal and hilar adenopathy similar to prior examination. 3. Superimposed dense lower lobe consolidations and scattered "tree in bud infiltrates." 4. Significant gastric wall thickening. - Continue with incentive spirometry, acapella and Guaifenesin - c/w Zosyn (Day #10) Hypoxia - likely 2/2 pneumonia - Continue with supplemental oxygen - Has been ambulating without any significant additional requirement for oxygen - Continue to taper Confusion - likely 2/2 in hospital delirium - Patient also reported some suicidal ideation; currently does not state any suicidal - On 6/7 AM patient had an episode of confusion and reported that we were refusing him to get to his room for allowing him to leave the hospital - Bedside sitter will be placed again - c/w Haldol PRN agitation / anxiety - Consulted psychiatry; Dr. 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 with primary anastomosis: - Has been on a mechanical soft diet - Has not experienced any issues Generalized weakness: - c/w physical therapy; will likely are services upon discharge DLP - c/w Fish oil GERD - c/w omeprazole DVT prophylaxis - c/w Lovenox Disposition: - Anticipate clearance from PT by Sunday VS,Reynae, I+O VS, Fishbone, I+O Laboratory Tests 09/28/18 06:08 Red Blood Count 3.70 L, Mean Corpuscular Volume 87.6, Mean Corpuscular Hemoglobin 27.3, Mean Corpuscular Hemoglobin Concent 31.2 L, Red Cell Distribution Width 16.1 H, Neutrophils (%) (Auto) 70.5 H, Lymphocytes (%) (Auto) 15.9 L, Monocytes (%) (Auto) 10.2 H, Eosinophils (%) (Auto) 2.6, Basophils (%) (Auto) 0.4, Neutrophils # (Auto) 6.5, Lymphocytes # (Auto) 1.5, Monocytes # (Auto) 0.9 H, Eosinophils # (Auto) 0.2, Basophils # (Auto) 0.0, Calcium Level 9.2 Vital Signs Date Time Temp Pulse Resp B/P (MAP) Pulse Ox O2 Delivery O2 Flow Rate FiO2 09/28/18 10:37 115/70 09/28/18 06:00 97.5 74 20 91 2.0 09/27/18 07:40 Nasal Cannula I&O- Last 24 Hours up to 6 AM 09/28/18 06:00 Intake Total 1900 ml Output Total 1925 ml Balance -25 ml JAMES JOSE MD Sep 28, 2018 12:36
[2018-09-28 14:00] VITALS: BP 104/58
[2018-09-28] MEDS: TAMSULOSIN 0.4 MG CAP PO SCH (21:08)
[2018-09-28] MEDS: ENOXAPARIN 40 MG/0.4 ML SYRINGE (J1650) SC SCH (21:08)
[2018-09-28 22:00] VITALS: BP 125/70
[2018-09-29] MEDS: PIPERACILLIN/TAZOBACTAM SOD 3.375 GM in D5W MINI-BAG PLUS 50 ML IV SCH (05:36)
[2018-09-29 06:00] VITALS: BP 128/75
[2018-09-29] MEDS: LevoFLOXacin 750 MG TABLET PO SCH (06:00)
[2018-09-29 06:54] LABS: BASO # 0.1 10^3/uL (0.0-0.2); BASO % 0.5 % (0.0-1.0); EOS # 0.2 10^3/uL (0.0-0.50); EOS % 2.3 % (0.0-3.0); HEMATOCRIT 34.2 % (42.0-52.0); HEMOGLOBIN 10.7 g/dl (13.5-17.5); LYMPH # 2.1 10^3/uL (1.5-4.5); LYMPH % 21.6 % (24.0-44.0); MEAN CORPUSCULAR HEMOGLOBIN 26.6 pg (27.0-33.0); MEAN CORPUSCULAR HGB CONC 31.3 g/dl (32.0-36.5); MEAN CORPUSCULAR VOLUME 84.9 fl (80.0-96.0); MONO # 0.9 10^3/uL (0.0-0.8); MONO % 9.1 % (0.0-5.0); NEUTROPHILS # 6.4 10^3/uL (1.8-7.7); NEUTROPHILS % 66.3 % (36.0-66.0); PLATELET COUNT, AUTOMATED 407 10^3/uL (150-450); RED BLOOD COUNT 4.03 10^6/uL (4.30-6.10); WHITE BLOOD COUNT 9.6 10^3/uL (4.0-10.0)
[2018-09-29 07:24] LABS: BLOOD UREA NITROGEN 13 MG/DL (7-18); CALCIUM LEVEL 8.9 MG/DL (8.8-10.2); CARBON DIOXIDE LEVEL 29 MEQ/L (21-32); CHLORIDE LEVEL 104 MEQ/L (98-107); CREATININE FOR GFR 0.93 MG/DL (0.70-1.30); GLOMERULAR FILTRATION RATE > 60.0 (>35); GLUCOSE, FASTING 88 MG/DL (70-100); MAGNESIUM LEVEL 1.7 MG/DL (1.8-2.4); POTASSIUM SERUM 4.1 MEQ/L (3.5-5.1); SODIUM LEVEL 140 MEQ/L (136-145)
[2018-09-29] MEDS: IPRATROPIUM 0.5MG/ALBUTEROL 2.5MG INH SOL UD 3ML (DUONEB)(J7620) INH SCH ×4 (08:00→20:00)
[2018-09-29] MEDS ORDERED: FUROSEMIDE 40 MG/4 ML VIAL (J1940) IV ONE (08:00)
[2018-09-29] MEDS ORDERED: MAG SULF 1GM/100ML (MAG RUN) 1 GM in APPROPRIATE DILUENT 1 EA IV ONE (08:00)
[2018-09-29] MEDS: ADVAIR HFA 115/21MCG INHALER INH SCH ×2 (08:07→21:00)
[2018-09-29] MEDS: OMEGA-3 1000MG CAPSULE PO SCH ×2 (09:46→21:22)
[2018-09-29] MEDS: VITAMIN D 1,000 INTERNATIONAL UNITS TABLET PO SCH (09:47)
[2018-09-29] MEDS: LACTOBACILLUS ACIDOPHILUS CAP (BACID) PO SCH (09:47)
[2018-09-29] MEDS: guaiFENesin ER 600 MG TAB PO SCH ×2 (09:47→21:22)
[2018-09-29] MEDS: AMITRIPTYLINE 10 MG TAB PO SCH ×2 (09:48→21:22)
[2018-09-29] MEDS: ATENOLOL 25 MG TAB PO SCH (09:48)
[2018-09-29] MEDS: OMEPRAZOLE 20 MG CAP PO SCH (09:48)
[2018-09-29] MEDS: PARoxetine 20 MG TAB PO SCH (09:48)
[2018-09-29] MEDS: VALSARTAN 80 MG TAB (DIOVAN) PO SCH (09:49)
--- NOTE | 2018-09-29 10:37 | IPNPDOC ---
Text Note Date of Service The patient was seen on 09/29/18. NOTE Subjective: Patient is in an 87-year-old male with a past medical history of colon cancer involving splenic fracture status post resection of distal transverse and proximal descending colon with primary anastomosis, stage III lung cancer, dyslipidemia, hypertension, arthritis, anxiety, nocturnal hypoxia, GERD who presented to the emergency room with complaints of cough and shortness of breath. Patient had a recent surgery for resection of his colon cancer and was discharged on 08/20/18. In the emergency room, patient was suspected of having a developing pneumonia and was admitted to the hospitalist service for further evaluation and treatment. Patient was seen and examined at the bedside. Patient was sitting at the side of the bed eating breakfast. He reports that his breathing is doing better. Has not experienced a significant productive cough. Denies chest pain or palpitations. Denies nausea, vomiting, abdominal pain, constipation or diarrhea. Denies any urinary discomfort. Objective: Vitals (See below) General: Lying in bed, no acute distress, comfortable, awake and alert HEENT: NC, AT CVS: RRR, +S1S2 Lungs: Auscultation does not reveal any rhonchi, rales or wheezing. Air entry is fair bilaterally Abdomen: Soft without distention or tenderness Extremities: No evidence of lower extremity edema appreciated, - Calf tenderness Assessment and plan: Bilateral lower lobe pneumonia (right greater than left) - likely 2/2 Pseudomonas Pneumonia, present on admission, in setting of stage III lung cancer: - Patient continues to improve clinically - Physical does not reveal any significant adventitious lung sounds - Patient still requiring some oxygen; will continue to titrate down - No leukocytosis or lactic acidosis - Sputum cultures 09/20: Pseudomonas Aeruginosa - Chest CT 09/19: 1. Right lower lobe lesion is stable in size but now demonstrates small cavitary component. 2. Extensive mediastinal and hilar adenopathy similar to prior examination. 3. Superimposed dense lower lobe consolidations and scattered "tree in bud infiltrates." 4. Significant gastric wall thickening. - Continue with incentive spirometry, acapella and Guaifenesin - Will check progressive noted - Will start Levaquin; Will DC Zosyn (Antibiotic day #11) Hypoxia - likely 2/2 pneumonia - Continue with supplemental oxygen - Has been ambulating without any significant additional requirement for oxygen - Continue to taper - Patient may require outpatient supplement of oxygen s/p Confusion - likely 2/2 in hospital delirium - s/p Suicidal ideation - cleared by psychiatry - On 09/27 AM patient had an episode of confusion and reported that we were refusing him to get to his room for allowing him to leave the hospital - Patient's mentation appears to have improved this morning - c/w Haldol PRN agitation / anxiety - Consulted psychiatry; Dr. 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 with primary anastomosis: - Has been on a mechanical soft diet - Has not experienced any issues Generalized weakness: - c/w physical therapy; will likely are services upon discharge DLP - c/w Fish oil GERD - c/w omeprazole DVT prophylaxis - c/w Lovenox Disposition: - Anticipate clearance from PT by Sunday VS,Fishbone, I+O VS, Fishbone, I+O Laboratory Tests 09/29/18 06:28 Red Blood Count 4.03 L, Mean Corpuscular Volume 84.9, Mean Corpuscular Hemoglobin 26.6 L, Mean Corpuscular Hemoglobin Concent 31.3 L, Red Cell Distribution Width 16.4 H, Neutrophils (%) (Auto) 66.3 H, Lymphocytes (%) (Auto) 21.6 L, Monocytes (%) (Auto) 9.1 H, Eosinophils (%) (Auto) 2.3, Basophils (%) (Auto) 0.5, Neutrophils # (Auto) 6.4, Lymphocytes # (Auto) 2.1, Monocytes # (Auto) 0.9 H, Eosinophils # (Auto) 0.2, Basophils # (Auto) 0.1, Calcium Level 8.9 Vital Signs Date Time Temp Pulse Resp B/P (MAP) Pulse Ox O2 Delivery O2 Flow Rate FiO2 09/29/18 09:48 113 116/69 09/29/18 06:00 96.6 18 93 2.0 09/27/18 07:40 Nasal Cannula I&O- Last 24 Hours up to 6 AM 09/29/18 06:00 Intake Total 1620 ml Output Total 2000 ml Balance -380 ml JAMES JOSE MD Sep 29, 2018 10:37
[2018-09-29 14:00] VITALS: BP 98/55
[2018-09-29 15:28] VITALS: BP 102/64
[2018-09-29] MEDS: TAMSULOSIN 0.4 MG CAP PO SCH (21:22)
[2018-09-29] MEDS: ENOXAPARIN 40 MG/0.4 ML SYRINGE (J1650) SC SCH (21:23)
[2018-09-29 22:00] VITALS: BP 120/58
[2018-09-30] MEDS: LevoFLOXacin 750 MG TABLET PO SCH (05:34)
[2018-09-30 06:00] VITALS: BP 120/68
[2018-09-30 06:09] LABS: BASO # 0.1 10^3/uL (0.0-0.2); BASO % 0.6 % (0.0-1.0); EOS # 0.3 10^3/uL (0.0-0.50); EOS % 3.1 % (0.0-3.0); HEMATOCRIT 33.3 % (42.0-52.0); HEMOGLOBIN 10.4 g/dl (13.5-17.5); LYMPH # 1.7 10^3/uL (1.5-4.5); LYMPH % 19.5 % (24.0-44.0); MEAN CORPUSCULAR HEMOGLOBIN 26.7 pg (27.0-33.0); MEAN CORPUSCULAR HGB CONC 31.2 g/dl (32.0-36.5); MEAN CORPUSCULAR VOLUME 85.6 fl (80.0-96.0); MONO # 0.9 10^3/uL (0.0-0.8); MONO % 9.9 % (0.0-5.0); NEUTROPHILS # 5.8 10^3/uL (1.8-7.7); NEUTROPHILS % 66.6 % (36.0-66.0); PLATELET COUNT, AUTOMATED 386 10^3/uL (150-450); RED BLOOD COUNT 3.89 10^6/uL (4.30-6.10); WHITE BLOOD COUNT 8.7 10^3/uL (4.0-10.0)
[2018-09-30 06:34] LABS: BLOOD UREA NITROGEN 15 MG/DL (7-18); CALCIUM LEVEL 9.5 MG/DL (8.8-10.2); CARBON DIOXIDE LEVEL 31 MEQ/L (21-32); CHLORIDE LEVEL 103 MEQ/L (98-107); CREATININE FOR GFR 0.92 MG/DL (0.70-1.30); GLOMERULAR FILTRATION RATE > 60.0 (>35); GLUCOSE, FASTING 82 MG/DL (70-100); MAGNESIUM LEVEL 1.9 MG/DL (1.8-2.4); POTASSIUM SERUM 4.1 MEQ/L (3.5-5.1); SODIUM LEVEL 139 MEQ/L (136-145)
[2018-09-30] MEDS: IPRATROPIUM 0.5MG/ALBUTEROL 2.5MG INH SOL UD 3ML (DUONEB)(J7620) INH SCH ×5 (07:41→20:47)
[2018-09-30] MEDS: LACTOBACILLUS ACIDOPHILUS CAP (BACID) PO SCH (07:59)
[2018-09-30] MEDS: VITAMIN D 1,000 INTERNATIONAL UNITS TABLET PO SCH (07:59)
[2018-09-30] MEDS: OMEGA-3 1000MG CAPSULE PO SCH ×2 (07:59→20:06)
[2018-09-30] MEDS: guaiFENesin ER 600 MG TAB PO SCH ×2 (07:59→20:06)
[2018-09-30] MEDS: PARoxetine 20 MG TAB PO SCH (07:59)
[2018-09-30] MEDS: VALSARTAN 80 MG TAB (DIOVAN) PO SCH (08:00)
[2018-09-30] MEDS: ATENOLOL 25 MG TAB PO SCH (08:00)
[2018-09-30] MEDS: AMITRIPTYLINE 10 MG TAB PO SCH ×2 (08:00→20:06)
[2018-09-30] MEDS: OMEPRAZOLE 20 MG CAP PO SCH (08:00)
[2018-09-30] MEDS: ADVAIR HFA 115/21MCG INHALER INH SCH ×2 (08:08→20:48)
--- NOTE | 2018-09-30 13:21 | IPNPDOC ---
Text Note Date of Service The patient was seen on 09/30/18. NOTE Subjective: Patient is in an 87-year-old male with a past medical history of colon cancer involving splenic fracture status post resection of distal transverse and proximal descending colon with primary anastomosis, stage III lung cancer, dyslipidemia, hypertension, arthritis, anxiety, nocturnal hypoxia, GERD who presented to the emergency room with complaints of cough and shortness of breath. Patient had a recent surgery for resection of his colon cancer and was discharged on 08/20/18. In the emergency room, patient was suspected of having a developing pneumonia and was admitted to the hospitalist service for further evaluation and treatment. Patient was seen and examined at the bedside. Reports improvement in breathing. No significant cough. No chest pain / palpitations. No events of confusion. Denies any ab pain, N/V, C/D or urinary discomfort. Has urinated significantly. Objective: Vitals (See below) General: Lying in bed, no acute distress, comfortable, awake and alert HEENT: NC, AT CVS: RRR, +S1S2 Lungs: Fair b/l, -rhonchi / rales / wheezing Abdomen: Soft, ND, NT Extremities: - Edema, - Calf tenderness Assessment and plan: Bilateral lower lobe pneumonia (right greater than left) - likely 2/2 Pseudomonas Pneumonia, present on admission, in setting of stage III lung cancer : - Clinical improvement noted - Physical does not reveal any significant adventitious lung sounds - Patient still requiring some oxygen; will continue to titrate down - No leukocytosis or lactic acidosis - Procalcitonin pending - Sputum cultures 09/20: Pseudomonas Aeruginosa - Chest CT 09/19: 1. Right lower lobe lesion is stable in size but now demonstrates small cavitary component. 2. Extensive mediastinal and hilar adenopathy similar to prior examination. 3. Superimposed dense lower lobe c onsolidations and scattered "tree in bud infiltrates." 4. Significant gastric wall thickening. - Continue with incentive spirometry, acapella and Guaifenesin - c/w Levaquin; Will DC Zosyn (Antibiotic day #12) Hypoxia - likely 2/2 pneumonia - Continue with supplemental oxygen and taper down with improvement - Has been ambulating without any significant additional requirement for oxygen - Patient may require outpatient supplement of oxygen s/p Confusion - likely 2/2 in hospital delirium - On 6/7 AM patient had an episode of confusion and reported that we were refusing him to get to his room for allowing him to leave the hospital - No confusion currently - s/p Suicidal ideation - cleared by psychiatry - c/w Haldol PRN agitation / anxiety - Consulted psychiatry; Dr. 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 with primary anastomosis: - Has been on a mechanical soft diet - Has not experienced any issues Generalized weakness: - c/w physical therapy; will likely are services upon discharge DLP - c/w Fish oil GERD - c/w omeprazole DVT prophylaxis - c/w Lovenox Disposition: - PT has recommended 24/7 care at home VS,Fatmata, I+O VS, Fishbone, I+O Laboratory Tests 09/30/18 05:41 Red Blood Count 3.89 L, Mean Corpuscular Volume 85.6, Mean Corpuscular Hemoglobin 26.7 L, Mean Corpuscular Hemoglobin Concent 31.2 L, Red Cell Distribution Width 16.5 H, Neutrophils (%) (Auto) 66.6 H, Lymphocytes (%) (Auto) 19.5 L, Monocytes (%) (Auto) 9.9 H, Eosinophils (%) (Auto) 3.1 H, Basophils (%) (Auto) 0.6, Neutrophils # (Auto) 5.8, Lymphocytes # (Auto) 1.7, Monocytes # (Auto) 0.9 H, Eosinophils # (Auto) 0.3, Basophils # (Auto) 0.1, Calcium Level 9.5 Vital Signs Date Time Temp Pulse Resp B/P (MAP) Pulse Ox O2 Delivery O2 Flow Rate FiO2 09/30/18 09:00 2.0 09/30/18 08:00 92 120/68 09/30/18 06:00 96.8 18 92 09/27/18 07:40 Nasal Cannula I&O- Last 24 Hours up to 6 AM 09/30/18 06:00 Intake Total 1150 ml Output Total 1670 ml Balance -520 ml JAMES JOSE MD Sep 30, 2018 13:21
[2018-09-30 14:00] VITALS: BP 115/45
[2018-09-30] MEDS: TAMSULOSIN 0.4 MG CAP PO SCH (20:05)
[2018-09-30] MEDS: ENOXAPARIN 40 MG/0.4 ML SYRINGE (J1650) SC SCH (20:05)
[2018-09-30 22:00] VITALS: BP 120/74
[2018-10-01] MEDS: LevoFLOXacin 750 MG TABLET PO SCH (05:03)
[2018-10-01 06:00] VITALS: BP 139/79
[2018-10-01 06:42] LABS: BASO % 0.5 % (0.0-1.0); EOS # 0.2 10^3/uL (0.0-0.50); HEMATOCRIT 31.9 % (42.0-52.0); LYMPH # 1.6 10^3/uL (1.5-4.5); LYMPH % 21.6 % (24.0-44.0); MEAN CORPUSCULAR HGB CONC 31.3 g/dl (32.0-36.5); MONO # 0.8 10^3/uL (0.0-0.8); MONO % 9.9 % (0.0-5.0); NEUTROPHILS # 4.9 10^3/uL (1.8-7.7); NEUTROPHILS % 64.7 % (36.0-66.0); PLATELET COUNT, AUTOMATED 382 10^3/uL (150-450); RED BLOOD COUNT 3.71 10^6/uL (4.30-6.10); WHITE BLOOD COUNT 7.6 10^3/uL (4.0-10.0)
[2018-10-01 07:10] LABS: BLOOD UREA NITROGEN 17 MG/DL (7-18); CALCIUM LEVEL 9.1 MG/DL (8.8-10.2); CARBON DIOXIDE LEVEL 29 MEQ/L (21-32); CHLORIDE LEVEL 105 MEQ/L (98-107); CREATININE FOR GFR 0.91 MG/DL (0.70-1.30); GLOMERULAR FILTRATION RATE > 60.0 (>35); GLUCOSE, FASTING 79 MG/DL (70-100); MAGNESIUM LEVEL 1.9 MG/DL (1.8-2.4); POTASSIUM SERUM 3.8 MEQ/L (3.5-5.1); SODIUM LEVEL 141 MEQ/L (136-145)
[2018-10-01] MEDS: IPRATROPIUM 0.5MG/ALBUTEROL 2.5MG INH SOL UD 3ML (DUONEB)(J7620) INH SCH ×2 (07:34→12:00)
[2018-10-01] MEDS: ADVAIR HFA 115/21MCG INHALER INH SCH (07:34)
[2018-10-01] MEDS: guaiFENesin ER 600 MG TAB PO SCH (08:33)
[2018-10-01] MEDS: PARoxetine 20 MG TAB PO SCH (08:33)
[2018-10-01] MEDS: VITAMIN D 1,000 INTERNATIONAL UNITS TABLET PO SCH (08:33)
[2018-10-01] MEDS: OMEPRAZOLE 20 MG CAP PO SCH (08:33)
[2018-10-01] MEDS: AMITRIPTYLINE 10 MG TAB PO SCH (08:33)
[2018-10-01 08:34] VITALS: BP 139/79
[2018-10-01] MEDS: LACTOBACILLUS ACIDOPHILUS CAP (BACID) PO SCH (08:34)
[2018-10-01] MEDS: ATENOLOL 25 MG TAB PO SCH (08:34)
[2018-10-01] MEDS: VALSARTAN 80 MG TAB (DIOVAN) PO SCH (08:34)
[2018-10-01] MEDS: OMEGA-3 1000MG CAPSULE PO SCH (08:35)
[2018-10-01] MEDS ORDERED: MUCI600T31 PO (10:56)
[2018-10-01] MEDS ORDERED: ATEN25TA PO (10:56)
[2018-10-01] MEDS ORDERED: LEVA750T7 PO (10:56)
--- NOTE | 2018-10-01 12:50 | DS.PDOC ---
Discharge Summary General Date of Admission September 19, 2018 at 14:37 Date of Discharge 10/01/2018 Discharge Summary PROCEDURES PERFORMED DURING STAY: [None]. 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 Patient had a recent surgery for resection of his colon cancer and was discharged on 08/20/18. In the emergency room, patient was suspected of having a developing pneumonia and was admitted to the hospitalist service for further evaluation and treatment. HOSPITAL COURSE: Bilateral lower lobe pneumonia (right greater than left) - likely 2/2 Pseudomonas Pneumonia, present on admission, in setting of stage III lung cancer: - Clinical improvement noted ; will be discharged with supplemental oxygen - Physical does not reveal any significant adventitious lung sounds - Patient still requiring some oxygen; will continue to titrate down - No leukocytosis or lactic acidosis - Procalcitonin pending - Sputum cultures 09/20: Pseudomonas Aeruginosa - Chest CT 09/19: 1. Right lower lobe lesion is stable in size but now demonstrates small cavitary component. 2. Extensive mediastinal and hilar adenopathy similar to prior examination. 3. Superimposed dense lower lobe consolidations and scattered "tree in bud infiltrates." 4. Significant gastric wall thickening. - Continue with incentive spirometry, acapella and Guaifenesin - c/w Levaquin; s/p Zosyn (Antibiotic day #13) - will complete antibiotics as an outpatient - [facility] - likely 2/2 pneumonia - Continue with supplemental oxygen and taper down with improvement - Has been ambulating without any significant additional requirement for oxygen - Patient may require outpatient supplement of oxygen s/p Confusion - likely 2/2 in hospital delirium - On 09/27 AM patient had an episode of confusion and reported that we were refusing him to get to his room for allowing him to leave the hospital - No confusion currently - s/p Suicidal ideation - cleared by psychiatry - c/w Haldol PRN agitation / anxiety - Consulted psychiatry; Dr. 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 ALLERGIES: Please see below. PHYSICAL EXAMINATION ON DISCHARGE: Vitals (See below) General: Lying in bed, no acute distress, comfortable, awake and alert HEENT: NC, AT CVS: RRR, +S1S2 Lungs: Fair b/l, no rhonchi / rales / no wheezing Abdomen: Soft, nontender / nondistended Extremities: no evidence of eema, - Calf tenderness LABORATORY DATA: Please see below. ACTIVITY: [As tolerated]. DISCHARGE PLAN: Follow up with Dr. Debra Kaur within 7 days Remain compliant with treatment plan and medications Return to the ER if you experience any problems DISPOSITION: Home with services - 13/11 care DISCHARGE CONDITION: [Stable]. TIME SPENT ON DISCHARGE: 35 minutes Vital Signs/I&Os Vital Signs Date Time Temp Pulse Resp B/P (MAP) Pulse Ox O2 Delivery O2 Flow Rate FiO2 10/01/18 10:01 80 10/01/18 10:00 2.0 10/01/18 08:34 71 139/79 10/01/18 06:00 98.0 20 09/27/18 07:40 Nasal Cannula I&O- Last 24 Hours up to 6 AM 10/01/18 06:00 Intake Total 1190 ml Output Total 975 ml Balance 215 ml Laboratory Data Labs 24H Laboratory Tests 2 10/01/18 06:03: Immature Granulocyte % (Auto) 0.3, White Blood Count 7.6, Red Blood Count 3.71L, Hemoglobin 10.0L, Hematocrit 31.9L, Mean Corpuscular Volume 86.0, Mean Corpuscular Hemoglobin 27.0, Mean Corpuscular Hemoglobin Concent 31.3L, Red Cell Distribution Width 16.6H, Platelet Count 382, Neutrophils (%) (Auto) 64.7, Lymp hocytes (%) (Auto) 21.6L, Monocytes (%) (Auto) 9.9H, Eosinophils (%) (Auto) 3.0, Basophils (%) (Auto) 0.5, Neutrophils # (Auto) 4.9, Lymphocytes # (Auto) 1.6, Monocytes # (Auto) 0.8, Eosinophils # (Auto) 0.2, Basophils # (Auto) 0.0, Nucleated Red Blood Cells % (auto) 0.0, Anion Gap 7L, Glomerular Filtration Rate > 60.0, Blood Urea Nitrogen 17, Creatinine 0.91, Sodium Level 141, Potassium Level 3.8, Chloride Level 105, Carbon Dioxide Level 29, Calcium Level 9.1, Magnesium Level 1.9 CBC/BMP Laboratory Tests 10/01/18 06:03 Red Blood Count 3.71 L, Mean Corpuscular Volume 86.0, Mean Corpuscular Hemoglobin 27.0, Mean Corpuscular Hemoglobin Concent 31.3 L, Red Cell Distribution Width 16.6 H, Neutrophils (%) (Auto) 64.7, Lymphocytes (%) (Auto) 21.6 L, Monocytes (%) (Auto) 9.9 H, Eosinophils (%) (Auto) 3.0, Basophils (%) (Auto) 0.5, Neutrophils # (Auto) 4.9, Lymphocytes # (Auto) 1.6, Monocytes # (Auto) 0.8, Eosinophils # (Auto) 0.2, Basophils # (Auto) 0.0, Calcium Level 9.1 Discharge Medications Scheduled Amitriptyline HCl (Amitriptyline HCl) 10 Mg Tab, 20 MG PO BID, (Reported) Atenolol (Atenolol) 25 Mg Tablet, 1 TAB PO DAILY Cholecalciferol (Vitamin D3) (Vitamin D3) 2,000 Unit Tab, 2,000 UNIT PO DAILY, (Reported) Fluticasone Propion/Salmeterol (Advair Hfa 115-21 Mcg Inhaler) 12 Gm Hfa.aer.ad, 2 PUFFS INH BID, (Reported) Guaifenesin (Mucinex) 600 Mg Tab.er.12h, 1,200 MG PO BID Lactobacillus Acidophilus (Digestive Probiotic) 1 Each Capsule, 1 CAP PO DAILY, (Reported) Levofloxacin (Levaquin) 750 Mg Tablet, 750 MG PO DAILY@06 [place]-3S/Dha/Epa/Fish Oil (Fish Oil EC 1,200 mg Softgel) 1 Cap Cap, 2 CAP PO BID, (Reported) Omeprazole (Omeprazole) 20 Mg Capsule.dr, 20 MG PO BID, (Reported) Paroxetine HCl (Paroxetine) 20 Mg Tablet, 20 MG PO DAILY, (Reported) Tamsulosin HCl (Flomax) 0.4 Mg Capsule, 0.4 MG PO QHS, (Reported) Valsartan/Hydrochlorothiazide (Valsartan-Hctz 160-12.5 mg Tab) 1 Each Tablet, 0. 5 TAB PO DAILY, (Reported) Scheduled PRN Albuterol Sulfate (Ventolin Hfa) 18 Gm Hfa.aer.ad, 2 PUFF INH Q4H PRN for SHORTNESS OF BREATH, (Reported) Propylene Glycol (Systane Complete) 0.6 % [place], 1 DROP OU BID PRN for DRY EYES, (Reported) Allergies Coded Allergies: ibuprofen (Verified Allergy, Mild, Flu like symptoms, 08/06/18) ciprofloxacin (Verified Allergy, Unknown, 08/06/18) escitalopram (Verified Allergy, Unknown, 08/06/18) fluoxetine (Verified Allergy, Unknown, 08/06/18) pantoprazole (Verified Allergy, Unknown, 08/06/18) sertraline (Verified Allergy, Unknown, 08/06/18) venlafaxine (Verified Allergy, Unknown, 08/06/18) morphine (Verified Adverse Reaction, Intermediate, psychotic, 08/06/18) JAMES JOSE MD Oct 01, 2018 12:50
== END 2018-10-01 13:27 | disposition home or self-care (01) | DRG 178 ==
LOC: M ED 12:09 → M ED INP 14:37 → M MSPAV 16:33
PROVIDERS: ADMIT Internal Medicine; ATTEND Internal Medicine
DX: J15.1 Pneumonia due to Pseudomonas (principal); C34.11 Malignant neoplasm of upper lobe, right bronchus or lung; R09.02 Hypoxemia; I10 Essential (primary) hypertension; K21.9 Gastro-esophageal reflux disease without esophagitis; Z85.038 Personal history of other malignant neoplasm of large intestine; R41.0 Disorientation, unspecified; M19.90 Unspecified osteoarthritis, unspecified site; F41.9 Anxiety disorder, unspecified; Z79.899 Other long term (current) drug therapy; Z88.8 Allergy status to other drugs, medicaments and biological substances; Z88.5 Allergy status to narcotic agent; Z66 Do not resuscitate; E78.5 Hyperlipidemia, unspecified; Z96.642 Presence of left artificial hip joint